=== PATIENT | male | born 1960 | race Caucasian/White ===

== ENCOUNTER 2016-07-08 16:41 | Emergency (ER) | payer OTHER ==
--- NOTE | 2016-07-08 17:08 | EDM.PDOC ---
ED HISTORY OF PRESENT ILLNESS - General Chief Complaint: Respiratory Problem Stated Complaint: SOB, FEVER, IMMUNO COMPROMISED, HEADACHE Time Seen by Provider: 07/08/16 17:08 - History of Present Illness INITIAL COMMENTS - FREE TEXT/NARRATIVE: 56-year-old male presents emergency room with a worsening cough. This cough has been going on for 3 or 4 days at times the cough is productive. At times he hears some wheezing. 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 He's had some associated fevers with this cough. Not a lot of other symptoms. Patient denies any chest pain or chest pressure. - Related Data Allergies/ADRs: Allergies Allergy/AdvReac Type Severity Reaction Status Date / Time No Known Allergies Allergy Verified 07/08/16 16:57 Home Meds: Home Meds Aspirin [[place] Aspirin] 81 mg PO DAILY 05/11/14 [History] Fluticasone Propionate [Flovent] 4 puff IH BID 05/11/14 [History] Pantoprazole [ProTONIX] 40 mg PO DAILY 05/11/14 [History] Sulfamethoxazole/Trimethoprim [Bactrim Ds Tablet] 1 tab PO BID 06/08/14 [History ] Ubidecarenone/Vitamin E Mixed [Coenzyme Q10 200 MG] 1 each PO DAILY #30 capsule 08/03/14 [Rx] FLUoxetine [PROzac] 40 mg PO DAILY 05/01/15 [History] Losartan [Cozaar] 25 mg PO DAILY 07/06/15 [History] Metoprolol Succinate [Toprol XL] 12.5 mg PO DAILY 07/06/15 [History] Albuterol Sulfate 2.5 mg IH QID #30 ml 01/07/16 [Rx] Benzonatate 200 mg PO Q8H PRN 07/08/16 [History] Doxycycline Hyclate 100 mg PO Q12H #19 tablet. 07/08/16 [Rx] Folic Acid/Multivit-Minerals [Men's Multivitamin Gummies] 2 tab PO DAILY [History] Nitroglycerin [Nitrostat] 0.4 mg PO Q5M PRN 07/08/16 [History] Rosuvastatin Calcium [Crestor] 40 mg PO DAILY 07/08/16 [History] Past Medical History HEENT History: Reports: Other (see below) Other HEENT History: Wears glasses for reading. Cardiovascular History: Reports: CAD, High cholesterol, [place] Respiratory History: Reports: Other (see below) Other Respiratory History: Wegeners syndrome Gastrointestinal History: Reports: GERD Psychiatric History: Reports: Anxiety Immunologic History: Reports: Other (see below) Other Immunologic History: Yancy's disease - Infectious Disease History Infectious Disease History: Reports: Chicken pox, Influenza, Mumps - Past Surgical History Cardiovascular Surgical History: Reports: Coronary artery stent Other Cardiovascular Surgeries/Procedures: 2 stents Respiratory Surgical History: Reports: None GI Surgical History: Reports: None Musculoskeletal Surgical History: Reports: Other (see below) Other Musculoskeletal Surgeries/Procedures:: L knee arhtroscopy, ACL replaced with cadaver ligament Social & Family History - Family History Family Medical History: Noncontributory - Tobacco Use Smoking Status *Q: Never Smoker Second Hand Smoke Exposure: No - Caffeine Use Caffeine Use: Reports: Coffee, Soda - Alcohol Use Days Per Week of Alcohol Use: 0 - Recreational Drug Use Recreational Drug Use: No Drug Use in Last 12 Months: No ED ROS GENERAL - Review of Systems Review Of Systems: See Below Constitutional: Reports: fever HEENT: Reports: No symptoms Respiratory: Reports: Wheezing, Cough, Sputum. Denies: Shortness of Breath Cardiovascular: Reports: No symptoms. Denies: Chest pain, Dyspnea on exertion GI/Abdominal: Reports: No symptoms Neurological: Reports: No Symptoms ED EXAM, GENERAL - Physical Exam Exam: See Below Exam Limited By: No limitations General Appearance: alert, no apparent distress Eye Exam: bilateral eye: normal inspection Ears: normal external exam, normal canal, hearing grossly normal. No: normal TMs (Patient has scarring extensively on his tympanic membranes especially the right ear tubes noted bilaterally) Nose: normal inspection, normal mucosa, no blood Throat/Mouth: Normal inspection, Normal lips, Normal teeth, Normal gums, Normal oropharynx, Normal voice, No airway compromise Head: atraumatic, normocephalic Neck: normal inspection, supple, non-tender, full range of motion. No: lymphadenopathy (L), lymphadenopathy (R) Respiratory/Chest: no respiratory distress, lungs clear, normal breath sounds, other (Second exam he had a few coarse breath sounds) Cardiovascular: regular rate, rhythm, no edema, no murmur Course - Vital Signs Last Recorded V/S: Last Vital Signs Temp 37.2 C 07/08/16 16:58 Pulse 78 07/08/16 16:58 Resp 20 07/08/16 16:58 BP 157/78 H 07/08/16 16:58 Pulse Ox 95 07/08/16 16:58 - Orders/Labs/Meds Orders: Active Orders 24 hr Category Date Time Status Chest 2V [CR] Stat Exams 07/08/16 17:28 Taken CBC WITH MANUAL DIFF [HEME] Stat Lab 07/08/16 17:10 Results COMPREHENSIVE METABOLIC PN,CMP [CHEM] Stat Lab 07/08/16 17:10 Received Labs: Laboratory Tests 07/08/16 Range/Units 17:10 WBC 5.31 (4.23-9.07) K/mm3 RBC 5.02 (4.63-6.08) M/mm3 Hgb 14.3 (13.7-17.5) gm/L Hct 43.4 (40.1-51.0) % MCV 86.5 (79.0-92.2) fl MCH 28.5 (25.7-32.2) pg MCHC 32.9 (32.2-35.5) g/dl RDW Std Deviation 42.7 (35.1-43.9) fL Plt Count 234 (163-337) K/mm3 MPV 9.5 (9.4-12.3) fl - Re-Assessments/Exams Free Text/Narrative Re-Assessment/Exam: 07/08/16 18:38 Chest x-ray is negative for acute processes he has mild scarring in most likely related to his Yancy's granulomatosis. Laboratory evaluation noncontributory His white count is almost 6069% segs 2% bands creatinine is 1.4 BUN 18 he has some known renal involvement from his Yancy's. Patient be treated with doxycycline 100 mg twice daily and be started on albuterol MDI 2 puffs every 4 hours while awake. Departure - Departure Time of Disposition: 18:40 Disposition: Home, Self-Care 01 Clinical Impression: Bronchitis Prescriptions: Doxycycline Hyclate 100 mg PO Q12H #19 tablet.dr Forms: ED Department Discharge Additional Instructions: Return to emergency room if any questions or problems. Followup in the clinic at the end of this next week if needed. He been started on doxycycline 100 mg twice daily take this for 10 days. While taking this take your multivitamin mid day in between the 2 doses at a minimum 2 hours away from the doxycycline preferably 4+ hours away from the doxycycline. discontinue Bactrim while taking the doxycycline. You have been started on albuterol inhaler. Use this 2 puffs every 4 hours until feeling better after feeling better continue to use 2 puffs 3 times a day for an additional week. - My Orders Last 24 Hours: My Active Orders 07/08/16 17:10 CBC WITH MANUAL DIFF [HEME] Stat COMPREHENSIVE METABOLIC PN,CMP [CHEM] Stat 07/08/16 17:28 Chest 2V [CR] Stat - Assessment/Plan Last 24 Hours: My Active Orders 07/08/16 17:10 CBC WITH MANUAL DIFF [HEME] Stat COMPREHENSIVE METABOLIC PN,CMP [CHEM] Stat 07/08/16 17:28 Chest 2V [CR] Stat
[2016-07-08] MEDS ORDERED: Doxycycline 100 MG Cap PO ONE (18:24)
[2016-07-08] MEDS ORDERED: Albuterol 6.7 GM Inhaler INH ONE (18:31)
[2016-07-08 19:12] VITALS: BP 149/86
--- NOTE | 2016-07-09 08:36 | CR ---
Chest: Two views of the chest were obtained. Comparison: Previous chest x-ray of 01/07/16. Heart size and mediastinum are normal. Lungs are clear. Degenerative spurring is noted within the spine. Impression: 1. Nothing acute is identified on two-view chest x-ray. Diagnostic code #2
== END 2016-07-08 19:00 | disposition home or self-care (01) ==
LOC: JD.ED 16:41
DX: J40 Bronchitis, not specified as acute or chronic (principal); I25.10 Atherosclerotic heart disease of native coronary artery without angina pectoris; E78.00 Pure hypercholesterolemia, unspecified; I25.2 Old myocardial infarction; K21.9 Gastro-esophageal reflux disease without esophagitis; F41.9 Anxiety disorder, unspecified; Z79.899 Other long term (current) drug therapy; Z79.82 Long term (current) use of aspirin
CPT/HCPCS: 36415; 71020; 80053; 85025; 94664; 99285; A9270; 99283

== ENCOUNTER 2017-01-08 07:18 | Emergency (ER) | payer OTHER ==
[2017-01-08 07:28] VITALS: BP 148/71
[2017-01-08] MEDS ORDERED: Amoxicillin/Clavulanate K 875-125 MG Tab PO ONE (07:51)
[2017-01-08] MEDS ORDERED: Diphtheria,Pertussis(Acell),Tetanus Vaccine 0.5 ML SDV IM ONE (07:51)
--- NOTE | 2017-01-08 08:05 | EDM.PDOC ---
ED HPI GENERAL MEDICAL PROBLEM - General Chief Complaint: Bite:Animal, Insect Stated Complaint: CAT BITE HAND SWELLING Time Seen by Provider: 01/08/17 07:27 Source of Information: Reports: Patient, Family (), RN Notes Reviewed History Limitations: Reports: No Limitations - History of Present Illness INITIAL COMMENTS - FREE TEXT/NARRATIVE: The patient states that he was bitten on his left hand around 22:00 last night, by a cat that he and his just adopted yesterday. This morning, he has developed some swelling, mild erythema, and pain to the area. The patient does not recall when his last tetanus vaccination was. The patient is on Rituxan and Bactrim for Yancy's granulomatosis. The patient's PCP is Shanna Borrego. Left Hand Pain Score (Numeric/FACES): 4 - Related Data Allergies Allergy/AdvReac Type Severity Reaction Status Date / Time No Known Allergies Allergy Verified 01/08/17 07:27 Home Meds: Home Meds Aspirin [[place] Aspirin] 81 mg PO DAILY 05/11/14 [History] Fluticasone Propionate [Flovent] 4 puff IH BID 05/11/14 [History] Pantoprazole [ProTONIX] 40 mg PO DAILY 05/11/14 [History] Sulfamethoxazole/Trimethoprim [Bactrim Ds Tablet] 1 tab PO BID 06/08/14 [History ] Ubidecarenone/Vitamin E Mixed [Coenzyme Q10 200 MG] 1 each PO DAILY #30 capsule 08/03/14 [Rx] FLUoxetine [PROzac] 40 mg PO DAILY 05/01/15 [History] Losartan [Cozaar] 25 mg PO DAILY 07/06/15 [History] Metoprolol Succinate [Toprol XL] 12.5 mg PO DAILY 07/06/15 [History] Benzonatate 200 mg PO Q8H PRN 07/08/16 [History] Nitroglycerin [Nitrostat] 0.4 mg PO Q5M PRN 07/08/16 [History] Rosuvastatin Calcium [Crestor] 40 mg PO DAILY 07/08/16 [History] Albuterol Sulfate 2.5 mg IH QID PRN 11/09/16 [History] Amoxicillin/Potassium Clav [Augmentin 875-125 Tablet] 1 tab PO Q12H #20 tablet 01/08/17 [Rx] Insulin Aspart [Novolog Flexpen] 1 - 7 units SQ TIDAC 01/08/17 [History] Insulin Glarg,Human.Rec.Analog [LantUS Solostar] 12 units SQ DAILY 01/08/17 [ History] metFORMIN [Glucophage XR] 500 mg PO DAILY 01/08/17 [History] riTUXimab [Rituxan] 1,000 mg IV ASDIRECTED 01/08/17 [History] Past Medical History HEENT History: Reports: Hard of Hearing (wears hearing aids), Impaired Vision ( weras glasses) Cardiovascular History: Reports: CAD, High Cholesterol, Hypertension, [place] Respiratory History: Reports: Other (See Below) (Subglottic stenosis) Gastrointestinal History: Reports: GERD 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) Psychiatric History: Reports: Anxiety, Depression Endocrine/Metabolic History: Reports: Diabetes, Type II Immunologic History: Reports: Other (See Below) (Yancy's granulomatosis) - Infectious Disease History Infectious Disease History: Reports: Chicken Pox, Influenza, Mumps - Past Surgical History HEENT Surgical History: Reports: Oral Surgery ([place] teeth extraction) Cardiovascular Surgical History: Reports: Coronary Artery Stent (x 2) Respiratory Surgical History: Reports: Lung Biopsies, Other (See Below) ( Bronchoscopy x 5) GI Surgical History: Reports: Colonoscopy Musculoskeletal Surgical History: Reports: Other (See Below) (Right knee open ACL repair) Social & Family History - Family History Family Medical History: Noncontributory - Tobacco Use Smoking Status *Q: Never Smoker Second Hand Smoke Exposure: No - Caffeine Use Caffeine Use: Reports: None - Alcohol Use Alcohol Use History: Yes Days Per Week of Alcohol Use: 0 Alcohol Use Frequency: Socially - Recreational Drug Use Recreational Drug Use: No - Living Situation & Occupation Living situation: Reports: , with Spouse 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) ED ROS GENERAL - Review of Systems Review Of Systems: See Below Constitutional: Reports: No Symptoms HEENT: Reports: No Symptoms Respiratory: Reports: No Symptoms Cardiovascular: Reports: No Symptoms Endocrine: Reports: No Symptoms GI/Abdominal: Reports: No Symptoms : Reports: No Symptoms Musculoskeletal: Reports: No Symptoms Skin: Reports: No Symptoms Neurological: Reports: No Symptoms Psychiatric: Reports: No Symptoms Hematologic/Lymphatic: Reports: No Symptoms Immunologic: Reports: No Symptoms ED EXAM, ANIMAL BITE - Physical Exam Exam: See Below Exam Limited By: No Limitations General Appearance: Alert, WD/WN, No Apparent Distress Eye Exam: Extremities: Normal Range of Motion, Normal Capillary Refill, Other (2 subtle puncture wounds on the dorsal aspect of the left thenar eminence, with mild associated swelling and slight erythema. Mild tenderness to palpation of the area. No proximal swelling. Neurovascular status of the left upper extremity is intact.) Skin Exam: Normal Color, Warm/Dry Course - Vital Signs Last Recorded V/S: Last Vital Signs Temp 36.8 C 01/08/17 07:24 Pulse 79 01/08/17 07:24 Resp 16 01/08/17 07:24 BP 148/71 H 01/08/17 07:24 Pulse Ox 97 01/08/17 07:24 - Orders/Labs/Meds Orders: Active Orders 24 hr Category Date Time Status Vaccines to be Administered [RC] PER UNIT ROUTINE Care 01/08/17 07:51 Active Meds: Medications Discontinued Medications Generic Name Dose Route Start Last Admin Trade Name Vanessa PRN Reason Stop Dose Admin Amoxicillin/Clavulanate Potassium 1 tab 01/08/17 07:51 01/08/17 08:04 Augmentin 875 Mg/125 Mg PO 01/08/17 07:52 1 tab ONETIME ONE Administration Diphtheria/Tetanus/Acell Pertussis 0.5 ml 01/08/17 07:51 01/08/17 08:04 Adacel IM 01/08/17 07:52 0.5 ml .ONCE ONE Administration - Re-Assessments/Exams Free Text/Narrative Re-Assessment/Exam: 01/08/17 07:59 The patient has mild swelling and erythema to the posterior aspect of his left thenar eminence following a cat bite late last night. The patient does not know his tetanus vaccination, therefore I have ordered a tetanus vaccine, however, as he is on Rituxan, I informed him that the tetanus vaccination may be ineffective. Happily, tetanus is extremely unlikely with a cat bite. While the patient is on Bactrim, it does not cover anaerobes. I have therefore started the patient on oral Augmentin, and will e-prescribe for a 10 day course. Departure - Departure Time of Disposition: 08:02 Disposition: Home, Self-Care 01 Condition: Good Clinical Impression: Cat bite of left hand - Discharge Information Prescriptions: Amoxicillin/Potassium Clav [Augmentin 875-125 Tablet] 1 tab PO Q12H #20 tablet Instructions: Animal Bite, [id number] Referrals: Shanna Borrego, [employer] [Primary Care Provider] - Forms: ED Department Discharge Additional Instructions: You were seen in the emergency room after being bitten on your left hand by a cat last night. You received a tetanus vaccination in the emergency room. You have been started on the antibiotic Augmentin. Take one tablet every 12 hours, as prescribed. Follow-up with your PCP, Shanna Borrego, as needed. If any other problems, please do not hesitate to return to the ER. - My Orders Last 24 Hours: My Active Orders 01/08/17 07:51 Vaccines to be Administered [RC] PER UNIT ROUTINE - Assessment/Plan Last 24 Hours: My Active Orders 01/08/17 07:51 Vaccines to be Administered [RC] PER UNIT ROUTINE
== END 2017-01-08 08:16 | disposition home or self-care (01) ==
LOC: JD.ED 07:18
DX: S61.452A Open bite of left hand, initial encounter (principal); I10 Essential (primary) hypertension; E78.00 Pure hypercholesterolemia, unspecified; E11.9 Type 2 diabetes mellitus without complications; Z79.4 Long term (current) use of insulin; W55.01XA Bitten by cat, initial encounter; Z79.899 Other long term (current) drug therapy; Z79.82 Long term (current) use of aspirin; Z23 Encounter for immunization
CPT/HCPCS: 90715; 99283; A9270

== ENCOUNTER 2017-03-06 23:29 | Emergency (ER) | payer OTHER ==
--- NOTE | 2017-03-07 00:10 | EDM.PDOC ---
ED HPI GENERAL MEDICAL PROBLEM - General Chief Complaint: Fever Stated Complaint: COUGH FEVER Time Seen by Provider: 03/07/17 00:05 Source of Information: Reports: Patient History Limitations: Reports: No Limitations - History of Present Illness INITIAL COMMENTS - FREE TEXT/NARRATIVE: 56-year-old male presents to the ED for evaluation of paroxysmal productive cough for the better part of 3 days which appears to be gradually worsening. Developed a fever of 99.4 tonight. 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 So far it is controlled his disease process quite well since he's been using this medication since 2004. He does have a productive cough with yellowish thick sputum. Minimal nasal congestion. No severe chills no severe headache. Patient cannot receive a flu shot due to his immunocompromise state. Prone to bronchitis and pneumonia. Appetite remains quite good. Onset: Gradual Onset Date: 03/04/17 Duration: Day(s): Location: Reports: Chest (Productive cough with mild shortness of breath.) Quality: Reports: Other Severity: Moderate (Productive cough with fever) Improves with: Reports: None Worsens with: Reports: Other Context: Denies: Activity (Lying down seems to promote increased coughing.), Exercise, Lifting, Sick Contact, Trauma, Other Associated Symptoms: Reports: Chest Pain, Cough, cough w sputum, Fever/Chills, Shortness of Breath. 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: Acetaminophen Middle Chest Pain Score (Numeric/FACES): 5 - Related Data Allergies Allergy/AdvReac Type Severity Reaction Status Date / Time No Known Allergies Allergy Verified 03/06/17 23:54 Home Meds: Home Meds Aspirin [[place] Aspirin] 81 mg PO DAILY 05/11/14 [History] Fluticasone Propionate [Flovent] 4 puff IH BID 05/11/14 [History] Pantoprazole [ProTONIX Granules] 40 mg PO DAILY 05/11/14 [History] Sulfamethoxazole/Trimethoprim [Bactrim Ds Tablet] 1 tab PO BID 06/08/14 [History ] Ubidecarenone/Vitamin E Mixed [Coenzyme Q10 200 MG] 1 each PO DAILY #30 capsule 08/03/14 [Rx] FLUoxetine [PROzac] 40 mg PO DAILY 05/01/15 [History] Losartan [Cozaar] 25 mg PO DAILY 07/06/15 [History] Metoprolol Succinate [Toprol XL] 12.5 mg PO DAILY 07/06/15 [History] Benzonatate 200 mg PO Q8H PRN 07/08/16 [History] Nitroglycerin [Nitrostat] 0.4 mg PO Q5M PRN 07/08/16 [History] Rosuvastatin Calcium [Crestor] 40 mg PO DAILY 07/08/16 [History] Albuterol Sulfate 2.5 mg IH QID PRN 11/09/16 [History] Amoxicillin/Potassium Clav [Augmentin 875-125 Tablet] 1 tab PO Q12H #20 tablet 01/08/17 [Rx] Insulin Aspart [Novolog Flexpen] 1 - 7 units SQ TIDAC 01/08/17 [History] Insulin Glarg,Human.Rec.Analog [LantUS Solostar] 12 units SQ DAILY 01/08/17 [ History] metFORMIN [Glucophage XR] 500 mg PO DAILY 01/08/17 [History] riTUXimab [Rituxan] 1,000 mg IV ASDIRECTED 01/08/17 [History] Indomethacin. 1 tab PO DAILY 03/06/17 [History] Doxycycline [Vibramycin] 100 mg PO Q12HR #20 cap 03/07/17 [Rx] Hydrocodone/Chlorphen P-Stirex [Tussionex Pennkinetic Susp] 5 ml PO Q12H PRN # 60 ml 03/07/17 [Rx] Past Medical History HEENT History: Reports: Hard of Hearing (wears hearing aids), Impaired Vision ( weras glasses) Other HEENT History: Wears glasses for reading. 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 Psychiatric History: Reports: Anxiety, Depression Endocrine/Metabolic History: Reports: Diabetes, Type II Immunologic History: Reports: Other (See Below) (Yancy's granulomatosis) Other Immunologic History: Yancy's disease - Infectious Disease History Infectious Disease History: Reports: Chicken Pox, Influenza, Mumps - Past Surgical History HEENT Surgical History: Reports: Oral Surgery ([place] teeth extraction) Cardiovascular Surgical History: Reports: Coronary Artery Stent (x 2) Respiratory Surgical History: Reports: Lung Biopsies, Other (See Below) ( Bronchoscopy x 5) GI Surgical History: Reports: Colonoscopy Musculoskeletal Surgical History: Reports: Other (See Below) (Right knee open ACL repair) Social & Family History - Family History Family Medical History: Noncontributory - Tobacco Use Smoking Status *Q: Never Smoker Second Hand Smoke Exposure: No - Caffeine Use Caffeine Use: Reports: None - Alcohol Use Days Per Week of Alcohol Use: 0 - Recreational Drug Use Recreational Drug Use: No Drug Use in Last 12 Months: No - Living Situation & Occupation Living situation: Reports: , with Spouse 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 Denies: Chills, Night Sweats , Diaphoresis, Decreased Appetite, Weight Loss (Mild), Weight Gain HEENT: Reports: Rhinitis Respiratory: Reports: Shortness of Breath, Wheezing (Prep slightly more short of breath than normal), Cough, Sputum. Denies: Pleuritic Chest Pain ( on the wheezing intermittently), Hemoptysis (Yellowish thick sputum), Other Cardiovascular: Reports: No Symptoms Endocrine: Reports: No Symptoms GI/Abdominal: Reports: No Symptoms : Reports: No Symptoms Musculoskeletal: Reports: No Symptoms Skin: Reports: No Symptoms Neurological: Reports: No Symptoms Psychiatric: Reports: No Symptoms Hematologic/Lymphatic: Reports: No Symptoms Immunologic: Reports: No Symptoms ED EXAM, GENERAL - Physical Exam Exam: See Below Exam Limited By: No Limitations General Appearance: Alert, WD/WN, No Apparent Distress, Other Eye Exam: Bilateral Eye: Normal Inspection Ears: Normal TMs Nose: Other (Thickened mucosa particularly of the superior turbinates and the medial turbinates bilaterally without any signs of infection) Throat/Mouth: Normal Inspection, Normal Lips, Normal Teeth, Normal Oropharynx, Other Head: Atraumatic, Normocephalic Neck: Normal Inspection, Supple, Non-Tender, Full Range of Motion. No: Lymphadenopathy (L), Lymphadenopathy (R) Respiratory/Chest: No Respiratory Distress, Decreased Breath Sounds (Mild to both bases.), Rhonchi (Scattered rhonchi left upper lobe posteriorly), Wheezing (Bilateral wheezes from the upper lung coleman posteriorly.). No: Rales Cardiovascular: Normal Peripheral Pulses, Regular Rate, Rhythm, No Edema, No Gallop, No Murmur, No Rub GI/Abdominal: Normal Bowel Sounds, Soft, Non-Tender, No Organomegaly Extremities: Normal Inspection, Normal Range of Motion, Non-Tender, No Pedal Edema Neurological: Oriented, CN II-XII Intact, Normal Cognition, Normal Gait Psychiatric: Normal Affect Skin Exam: Warm, Dry, Intact, Normal Color, No Rash Course - Vital Signs Last Recorded V/S: Last Vital Signs Temp 36.7 C 03/06/17 23:47 Pulse 78 03/06/17 23:47 Resp 16 03/06/17 23:47 BP Pulse Ox 94 L 03/06/17 23:47 - Orders/Labs/Meds Orders: Active Orders 24 hr Category Date Time Status Chest 2V [CR] Stat Exams 03/07/17 00:01 Taken Meds: Medications Discontinued Medications Generic Name Dose Route Start Last Admin Trade Name Freq PRN Reason Stop Dose Admin Doxycycline Hyclate 200 mg 03/07/17 00:41 Vibramycin PO 03/07/17 00:42 ONETIME ONE Promethazine HCl/Codeine 15 ml 03/07/17 00:40 Phenergan With Codeine PO 03/07/17 00:41 ONETIME ONE - Radiology Interpretation Free Text/Narrative:: 56-year-old male presents the ED for evaluation of productive cough that is bringing up yellowish thick sputum. Develop an of fever tonight. Paroxysmal cough when he lays down. Patient is immunocompromised due to having Yancy's granulomatosis is unable to receive a flu shot. Running a low-grade fever at present 99.4. On to bronchitis and pneumonia due to his disease process. Plan influenza screen will be done although I think this is unlikely since he has a good appetite is not all that febrile. Two-view chest x-ray will be obtained to rule out pneumonia. - Re-Assessments/Exams Free Text/Narrative Re-Assessment/Exam: 03/07/17 00:24 two-view chest x-ray is within normal limits showing no signs of pneumonia. 03/07/17 00:45 influenza screen is negative. Patient will be treated with doxycycline 100 mg twice daily for 10 days. First dose of 200 mg was provided through the ED tonight. Given initial dose of cough syrup Phenergan With Codeine 15 mils by mouth now for cough relief overnight. Prescription written for Tussionex 5 mils every 12 hours. For cough relief over the next few days. Follow-up if not markedly improved in 3 days time Departure - Departure Time of Disposition: 00:41 Disposition: Home, Self-Care 01 Condition: Fair Clinical Impression: Bronchitis - Discharge Information Prescriptions: Doxycycline [Vibramycin] 100 mg PO Q12HR #20 cap Hydrocodone/Chlorphen P-Stirex [Tussionex Pennkinetic Susp] 5 ml PO Q12H PRN # 60 ml PRN Reason: Cough relief Referrals: Shanna Borrego, WASHROOM ATTENDANT [Primary Care Provider] - Forms: ED Department Discharge Additional Instructions: Evaluation in the emergency room today in regards to increasing upper respiratory tract symptoms primarily by way of productive cough and development of fever over the last 3 days. Exam reveals diffuse wheezing in the upper lung coleman in the back. Chest x-ray was negative for any pneumonia. Due to her immunocompromise state and development of bronchitis with fever decision made to treat with antibiotics. Use doxycycline 100 mg twice daily for the next 10 days to clear up infection. You're given Tylenol with Codeine elixir in the ED for cough relief overnight. It takes a good hour to work. Similarly prescription for Tussionex was written this takes a good hour to work as well and is taken 5 mils every 12 hours as needed for cough relief. Doxycycline should be continued twice daily for 10 days to clear up infection completely. Influenza screen was negative. Continue Tylenol or Advil as needed for fever relief. - My Orders Last 24 Hours: My Active Orders 03/07/17 00:01 Chest 2V [CR] Stat - Assessment/Plan Last 24 Hours: My Active Orders 03/07/17 00:01 Chest 2V [CR] Stat
[2017-03-07] MEDS ORDERED: Codeine/Promethazine 10-6.25 MG/5 ML Syrup 5 ML UD Cup PO ONE (00:40)
[2017-03-07] MEDS ORDERED: Doxycycline 100 MG Cap PO ONE (00:41)
--- NOTE | 2017-03-07 12:50 | CR ---
Chest: Two views of the chest were obtained. Comparison: Prior chest x-ray of 07/08/16. Heart size and mediastinum are within normal limits. Lungs are clear. Mild degenerative change is seen throughout the spine. Impression: 1. Nothing acute is identified on two-view chest x-ray. Diagnostic code #2 MTDD
== END 2017-03-07 00:55 | disposition home or self-care (01) ==
LOC: JD.ED 23:29
DX: J40 Bronchitis, not specified as acute or chronic (principal); I10 Essential (primary) hypertension; I25.10 Atherosclerotic heart disease of native coronary artery without angina pectoris; E78.00 Pure hypercholesterolemia, unspecified; E11.9 Type 2 diabetes mellitus without complications; F32.9 Major depressive disorder, single episode, unspecified; Z95.5 Presence of coronary angioplasty implant and graft; Z79.82 Long term (current) use of aspirin; Z79.4 Long term (current) use of insulin; Z79.899 Other long term (current) drug therapy
CPT/HCPCS: 71020; 87804; 99284; A9270; 99283

== ENCOUNTER 2017-03-17 17:14 | Emergency (ER) | payer OTHER ==
[2017-03-17 17:23] VITALS: BP 122/81
[2017-03-17] MEDS ORDERED: Sodium Chloride 0.9% 10 ML Syringe FLUSH PRN (18:16)
[2017-03-17] MEDS ORDERED: Diatrizoate Meglumine/Diatrizoate Sodium 37% 120 ML Bottle PO ONE (19:42)
[2017-03-17] MEDS ORDERED: Iopamidol 612 MG/ML 150 ML Bottle IVPUSH ONE (19:42)
[2017-03-17] MEDS ORDERED: Sodium Chloride 0.9% 10 ML Syringe FLUSH ONE (19:42)
--- NOTE | 2017-03-17 19:51 | EDM.PDOC ---
ED HPI GENERAL MEDICAL PROBLEM - General Chief Complaint: Chest Pain Stated Complaint: ABDOMINAL PAIN,NAUSEA,EXCESSIVE SWEATING Time Seen by Provider: 03/17/17 18:00 Source of Information: Reports: Patient History Limitations: Reports: No Limitations - History of Present Illness INITIAL COMMENTS - FREE TEXT/NARRATIVE: 56-year-old male presents for evaluation and treatment of abdominal pain. Patient reports the abdominal pain started 3 days ago. He states his generalized and is not localized to any one area. He describes as a crampy pain that waxes and wanes. He reports associated symptoms of diaphoresis and nausea. No fevers, diarrhea or vomiting. He is report that he is more anxious than normal. States that he had similar symptoms in April 2014 he was diagnosed with an [place]. He was sent to [facility] and had 2 stents placed. Patient denies any shortness of breath, however, his feels that he is breathing heavier than normal. Patient denies any chest pain, arm pain or neck pain. 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 Holley. Location: Reports: Abdomen Abdominal Pain Score (Numeric/FACES): 3 - Related Data Allergies Allergy/AdvReac Type Severity Reaction Status Date / Time No Known Allergies Allergy Verified 03/06/17 23:54 Home Meds: Home Meds Aspirin [[place] Aspirin] 81 mg PO DAILY 05/11/14 [History] Fluticasone Propionate [Flovent] 4 puff IH BID 05/11/14 [History] Pantoprazole [ProTONIX Granules] 40 mg PO DAILY 05/11/14 [History] Sulfamethoxazole/Trimethoprim [Bactrim Ds Tablet] 1 tab PO BID 06/08/14 [History ] Ubidecarenone/Vitamin E Mixed [Coenzyme Q10 200 MG] 1 each PO DAILY #30 capsule 08/03/14 [Rx] FLUoxetine [PROzac] 60 mg PO DAILY 05/01/15 [History] Losartan [Cozaar] 25 mg PO DAILY 07/06/15 [History] Metoprolol Succinate [Toprol XL] 12.5 mg PO DAILY 07/06/15 [History] Nitroglycerin [Nitrostat] 0.4 mg PO Q5M PRN 07/08/16 [History] Rosuvastatin Calcium [Crestor] 40 mg PO DAILY 07/08/16 [History] Albuterol Sulfate 2.5 mg IH QID PRN 11/09/16 [History] Insulin Glarg,Human.Rec.Analog [LantUS Solostar] 16 units SQ DAILY 01/08/17 [ History] metFORMIN [Glucophage XR] 500 mg PO DAILY 01/08/17 [History] riTUXimab [Rituxan] 1,000 mg IV ASDIRECTED 01/08/17 [History] Indomethacin. 1 tab PO DAILY PRN 03/06/17 [History] Ondansetron [Zofran ODT] 4 mg PO Q6H PRN #20 tab.dis 03/17/17 [Rx] Pseudoephedrine HCl [Sudafed 12 Hour] 1 tab PO BEDTIME 03/17/17 [History] Past Medical History HEENT History: Reports: Hard of Hearing, Impaired Vision Other HEENT History: Wears glasses for reading. Cardiovascular History: Reports: CAD, High Cholesterol, Hypertension, [place] Respiratory History: Reports: Other (See Below) Other Respiratory History: GPA Gastrointestinal History: Reports: GERD Neurological History: Reports: CVA Other Neuro History: occular stoke Psychiatric History: Reports: Anxiety, Depression Endocrine/Metabolic History: Reports: Diabetes, Type II Immunologic History: Reports: Other (See Below) Other Immunologic History: Yancy's disease - Infectious Disease History Infectious Disease History: Reports: Chicken Pox, Influenza, Mumps - Past Surgical History HEENT Surgical History: Reports: Oral Surgery Cardiovascular Surgical History: Reports: Coronary Artery Stent Respiratory Surgical History: Reports: Lung Biopsies, Other (See Below) GI Surgical History: Reports: Colonoscopy Social & Family History - Family History Family Medical History: Noncontributory - Tobacco Use Smoking Status *Q: Never Smoker Second Hand Smoke Exposure: No - Caffeine Use Caffeine Use: Reports: Coffee - Alcohol Use Days Per Week of Alcohol Use: 0 - Recreational Drug Use Recreational Drug Use: No Drug Use in Last 12 Months: No - Living Situation & Occupation Living situation: Reports: , with Spouse 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 Denies: Diarrhea, Vomiting Musculoskeletal: Denies: Neck Pain, Arm Pain Psychiatric: Reports: Anxiety ED EXAM, GENERAL - Physical Exam Exam: See Below Exam Limited By: No Limitations General Appearance: Alert, WD/WN, No Apparent Distress, Anxious, Obese Ears: Normal External Exam Nose: Normal Inspection Throat/Mouth: Normal Inspection, Normal Lips, Normal Voice, No Airway Compromise Neck: Normal Inspection Respiratory/Chest: No Respiratory Distress, Lungs Clear, Normal Breath Sounds Cardiovascular: Normal Peripheral Pulses, Regular Rate, Rhythm, No Murmur GI/Abdominal: Normal Bowel Sounds, Soft, Non-Tender Neurological: Alert, Oriented, Normal Cognition Psychiatric: Normal Affect, Normal Mood Skin Exam: Warm, Dry, Normal Color EKG INTERPRETATION EKG Date: 03/17/17 Time: 17:20 Rhythm: NSR Rate (Beats/Min): 78 Preemption: Normal P-Wave: Present QRS: Normal ST-T: Normal QT: Normal EKG Interpretation Comments: NSR at 78 bpm. Decreased voltage limb leads. Normal Qt. N signs of ischemia. Reviewed by myself and dr. Crespo. Course - Vital Signs Last Recorded V/S: Last Vital Signs Temp 36.7 C 03/17/17 17:17 Pulse 78 03/17/17 17:17 Resp 22 H 03/17/17 17:17 BP 122/81 03/17/17 17:17 Pulse Ox 100 03/17/17 17:17 - Orders/Labs/Meds Labs: Laboratory Tests 03/17/17 03/17/17 03/17/17 Range/Units 17:26 18:15 18:28 WBC 6.20 (4.23-9.07) K/mm3 RBC 4.84 (4.63-6.08) M/mm3 Hgb 14.0 (13.7-17.5) gm/L Hct 42.7 (40.1-51.0) % MCV 88.2 (79.0-92.2) fl MCH 28.9 (25.7-32.2) pg MCHC 32.8 (32.2-35.5) g/dl RDW Std Deviation 43.7 (35.1-43.9) fL Plt Count 283 (163-337) K/mm3 MPV 9.8 (9.4-12.3) fl Neutrophils % (Manual) 59 (40-60) % Band Neutrophils % 0 (0-10) % Lymphocytes % (Manual) 29 (20-40) % Atypical Lymphs % 0 % Monocytes % (Manual) 8 (2-10) % Eosinophils % (Manual) 3 (0.8-7.0) % Basophils % (Manual) 1 (0.2-1.2) Platelet Estimate Adequate Plt Morphology Comment Normal RBC Morph Comment Normal Sodium 141 (136-145) mEq/L Potassium 4.2 (3.5-5.1) mEq/L Chloride 104 (98-107) mEq/L Carbon Dioxide 29 (21-32) mEq/L Anion Gap 12.2 (5-15) BUN 16 (7-18) mg/dL Creatinine 1.3 (0.7-1.3) mg/dL Est Cr Clr Drug Dosing 65.51 mL/min Estimated GFR (MDRD) 57 (>60) mL/min BUN/Creatinine Ratio 12.3 L (14-18) Glucose 126 H (74-106) mg/dL Calcium 9.6 (8.5-10.1) mg/dL Total Bilirubin 0.4 (0.2-1.0) mg/dL AST 27 (15-37) U/L ALT 25 (16-63) U/L Alkaline Phosphatase 73 (46-116) U/L CK-MB (CK-2) 0.9 (0-3.6) ng/ml Troponin I < 0.017 (0.00-0.056) ng/mL Total Protein 7.0 (6.4-8.2) g/dl Albumin 3.8 (3.4-5.0) g/dl Globulin 3.2 gm/dL Albumin/Globulin Ratio 1.2 (1-2) Lipase 318 (73-393) U/L Urine Color Yellow (Yellow) Urine Appearance Clear (Clear) Urine pH 6.5 (5.0-8.0) Ur Specific [place] 1.015 (1.005-1.030) Urine Protein Negative (Negative) Urine Glucose (UA) Negative (Negative) Urine Ketones Negative (Negative) Urine Occult Blood Negative (Negative) Urine Nitrite Negative (Negative) Urine Bilirubin Negative (Negative) Urine Urobilinogen 0.2 (0.2-1.0) Ur Leukocyte Esterase Negative (Negative) Urine RBC Not seen (0-5) /hpf Urine WBC Not seen (0-5) /hpf Ur Epithelial Cells Not seen (0-5) /hpf Urine Bacteria Not seen (FEW) /hpf Urine Mucus Not seen (FEW) /hpf Meds: Medications Discontinued Medications Generic Name Dose Route Start Last Admin Trade Name Vanessa PRN Reason Stop Dose Admin Diatrizoate Meglum/Diatrizoate Sod 90 ml 03/17/17 19:42 03/17/17 20:25 Gastrografin 37% PO 03/17/17 19:43 90 ml ONETIME ONE Administration Iopamidol 125 ml 03/17/17 19:42 03/17/17 20:25 Isovue-300 (61%) IVPUSH 03/17/17 19:43 125 ml ONETIME ONE Administration Sodium Chloride 10 ml 03/17/17 18:16 03/17/17 18:21 Saline Flush FLUSH 10 ml ASDIRECTED PRN Administration Keep Vein Open Sodium Chloride 10 ml 03/17/17 19:42 03/17/17 20:26 Saline Flush FLUSH 03/17/17 19:43 10 ml ONETIME ONE Administration - Radiology Interpretation Free Text/Narrative:: CT of the abdomen and pelvis with IV and oral contrast impression per vrad: No acute findings. hepatic steatosis. multiple calcified splenic granulomata. chest xray shows no acute intrathoracic process. - Re-Assessments/Exams Free Text/Narrative Re-Assessment/Exam: 03/17/17 21:00 I reviewed the labs, EKG and imaging with the patient. Unclear the exact etiology for his abdominal discomfort today. Possibly a gastroenteritis causing his symptoms. I will treat him conservatively with fluids and rest. Instructed to follow-up with his primary care provider. Discharge instructions as documented. Departure - Departure Time of Disposition: 21:08 Disposition: Home, Self-Care 01 Condition: Good Clinical Impression: Nausea, Abdominal discomfort Prescriptions: Ondansetron [Zofran ODT] 4 mg PO Q6H PRN #20 tab.dis PRN Reason: Nausea Referrals: Shanna Borrego MANAGER SOLAR [Primary Care Provider] - Forms: ED Department Discharge Additional Instructions: Zofran 1 tab sublingual every 6 hours as needed for nausea. Recommend starting probiotic. Recommend bland diet and clear liquids for the next 2 days. [place] diet recommendations include bread, rice, applesauce, toast, bananas, egg whites, crackers, etc. Follow-up with your primary care provider this week. Please return to the ER if your symptoms change or worsen.
--- NOTE | 2017-03-18 09:54 | CR ---
Chest: Frontal view of the chest was obtained. Comparison: Prior chest x-ray of 03/07/17. Heart size and mediastinum are normal. Lungs are clear. Degenerative endplate spurring is noted within the spine. Impression: 1. Nothing acute is seen on frontal chest x-ray. No significant change is seen from prior chest x-ray. Diagnostic code #2
--- NOTE | 2017-03-18 11:12 | CT ---
CT abdomen and pelvis Technique: Multiple axial sections were obtained from above the dome of the diaphragm inferiorly through the pubic symphysis. Intravenous and oral contrast has been given. Delayed images were also obtained through the bladder. Comparison: Prior noncontrast CT exam of 05/17/15. Findings: Small subpleural nodule is identified within the right lung base which is noncalcified and measures about 4 mm which is felt to be incidental. Calcified granuloma also seen within the right lung base. Mild fatty infiltration is identified within the liver. No focal parenchymal abnormality is seen within the liver. Numerous calcified granulomas are seen within the spleen. Spleen does not appear enlarged. Adrenal glands show no nodule. Pancreas is within normal limits. Kidneys show symmetric contrast enhancement without hydronephrosis or mass. Aorta shows no aneurysmal dilatation. No retroperitoneal adenopathy or mesenteric abnormalities are seen. Appendix is seen which appears normal. No pelvic mass or adenopathy is seen. Delayed images show contrast within the distal ureters and within the bladder. Bone window settings were reviewed which show scattered degenerative change throughout the spine. Impression: 1. Incidental findings as noted above. Nothing acute is identified on CT study of the abdomen and pelvis. No appreciable change is seen from prior CT exam. Diagnostic code #2 I agree with preliminary report issued by [employer] ([facility] report finalized on 03/17/17, 9:41 PM Central Time)
== END 2017-03-17 21:35 | disposition home or self-care (01) ==
LOC: JD.ED 17:14
DX: R10.84 Generalized abdominal pain (principal); R11.0 Nausea; K76.0 Fatty (change of) liver, not elsewhere classified; I10 Essential (primary) hypertension; E11.9 Type 2 diabetes mellitus without complications; E78.00 Pure hypercholesterolemia, unspecified; Z79.82 Long term (current) use of aspirin; Z79.4 Long term (current) use of insulin; Z79.84 Long term (current) use of oral hypoglycemic drugs
CPT/HCPCS: 36415; 71010; 74177; 80053; 81001; 82553; 83690; 84484; 85025; 93005; 99285; J7050; Q9963; Q9967; 93010; 99284-25

== ENCOUNTER 2017-04-07 17:58 | Observation (INO) | payer OTHER ==
[2017-04-07] MEDS ORDERED: Sodium Chloride 0.9% 10 ML Syringe FLUSH PRN (19:15)
[2017-04-07] MEDS ORDERED: Sodium Chloride 0.9% 1,000 ML IV STA (19:15)
[2017-04-07] MEDS ORDERED: Ondansetron 4 MG/2 ML SDV IVPUSH ONE (19:15)
[2017-04-07] MEDS ORDERED: HYDROmorphone 0.5 MG/0.5 ML Syringe IVPUSH ONE (19:16)
[2017-04-07] MEDS ORDERED: Sodium Chloride 0.9% 1,000 ML IV ONE (20:57)
--- NOTE | 2017-04-07 22:13 | EDM.PDOC ---
ED HPI GENERAL MEDICAL PROBLEM - General Chief Complaint: Abdominal Pain Stated Complaint: DIARRHEA,VOMITING,ABDOMINAL PAIN Time Seen by Provider: 04/07/17 18:55 Source of Information: Reports: Patient History Limitations: Reports: No Limitations - History of Present Illness INITIAL COMMENTS - FREE TEXT/NARRATIVE: The patient presents with diarrhea and upper abdominal pain. This started this morning. Last night he did not feel so good. He did not feel like eating. He has a low grade temp of 100.2. He has [place]'s disease and has been on immunosuppresents. He has some body aches. He has no cough, chest pain, shortness of breath, or dysuria. He has had watery diarrhea for the past few hours. He did not eat any bad food. He has not been around anyone that is sick. His did not feel so good the past couple of days. He did have nausea but no vomiting. Onset: Gradual Duration: Hour(s): Location: Reports: Abdomen Quality: Reports: Sharp Severity: Moderate Improves with: Reports: None Worsens with: Reports: None Associated Symptoms: Reports: Fever/Chills, Nausea/Vomiting. Denies: Cough, Headaches, Shortness of Breath Treatments YARN SALVAGER: Reports: Acetaminophen, Other (see below) Other Treatments YARN SALVAGER: zofran Abdominal Pain Score (Numeric/FACES): 5 - Related Data Allergies Allergy/AdvReac Type Severity Reaction Status Date / Time No Known Allergies Allergy Verified 03/06/17 23:54 Home Meds: Home Meds Aspirin [[place] Aspirin] 81 mg PO DAILY 05/11/14 [History] Fluticasone Propionate [Flovent] 4 puff IH BID 05/11/14 [History] Pantoprazole [ProTONIX Granules] 40 mg PO DAILY 05/11/14 [History] Sulfamethoxazole/Trimethoprim [Bactrim Ds Tablet] 1 tab PO BID 06/08/14 [History ] Ubidecarenone/Vitamin E Mixed [Coenzyme Q10 200 MG] 1 each PO DAILY #30 capsule 08/03/14 [Rx] FLUoxetine [PROzac] 60 mg PO DAILY 05/01/15 [History] Losartan [Cozaar] 25 mg PO DAILY 07/06/15 [History] Metoprolol Succinate [Toprol XL] 12.5 mg PO DAILY 07/06/15 [History] Nitroglycerin [Nitrostat] 0.4 mg PO Q5M PRN 07/08/16 [History] Rosuvastatin Calcium [Crestor] 40 mg PO DAILY 07/08/16 [History] Albuterol Sulfate 2.5 mg IH QID PRN 11/09/16 [History] Insulin Glarg,Human.Rec.Analog [LantUS Solostar] 16 units SQ DAILY 01/08/17 [ History] metFORMIN [Glucophage XR] 500 mg PO DAILY 01/08/17 [History] riTUXimab [Rituxan] 1,000 mg IV ASDIRECTED 01/08/17 [History] Indomethacin. 1 tab PO DAILY PRN 03/06/17 [History] Ondansetron [Zofran ODT] 4 mg PO Q6H PRN #20 tab.dis 03/17/17 [Rx] Pseudoephedrine HCl [Sudafed 12 Hour] 1 tab PO BEDTIME 03/17/17 [History] Past Medical History HEENT History: Reports: Hard of Hearing, Impaired Vision Other HEENT History: Wears glasses for reading. Cardiovascular History: Reports: CAD, High Cholesterol, Hypertension, CO Respiratory History: Reports: Other (See Below) Other Respiratory History: GPA Gastrointestinal History: Reports: GERD Neurological History: Reports: CVA Other Neuro History: occular stoke Psychiatric History: Reports: Anxiety, Depression Endocrine/Metabolic History: Reports: Diabetes, Type II Immunologic History: Reports: Other (See Below) Other Immunologic History: Yancy's disease - Infectious Disease History Infectious Disease History: Reports: Chicken Pox, Influenza, Mumps - Past Surgical History HEENT Surgical History: Reports: Oral Surgery Cardiovascular Surgical History: Reports: Coronary Artery Stent Respiratory Surgical History: Reports: Lung Biopsies, Other (See Below) GI Surgical History: Reports: Colonoscopy Musculoskeletal Surgical History: Reports: Other (See Below) Social & Family History - Family History Family Medical History: Noncontributory - Tobacco Use Smoking Status *Q: Never Smoker Second Hand Smoke Exposure: No - Caffeine Use Caffeine Use: Reports: None - Alcohol Use Days Per Week of Alcohol Use: 0 - Recreational Drug Use Recreational Drug Use: No Drug Use in Last 12 Months: No - Living Situation & Occupation Living situation: Reports: , with Spouse 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 Denies: Vomiting : Reports: No Symptoms Musculoskeletal: Reports: No Symptoms ED EXAM, GI/ABD - Physical Exam Exam: See Below Exam Limited By: No Limitations General Appearance: Alert, No Apparent Distress Ears: Normal External Exam Nose: Normal Inspection Head: Atraumatic, Normocephalic Neck: Normal Inspection Respiratory/Chest: No Respiratory Distress, Lungs Clear, Normal Breath Sounds Cardiovascular: Regular Rate, Rhythm, No Edema, No Murmur GI/Abdominal Exam: Soft, No Organomegaly, Tender (Mild tenderness to the upper abdomen) Back Exam: Normal Inspection Extremities: Normal Inspection Course - Vital Signs Last Recorded V/S: Last Vital Signs Temp 99.8 F 04/07/17 18:17 Pulse 101 H 04/07/17 18:17 Resp 18 04/07/17 18:17 BP 126/78 04/07/17 18:17 Pulse Ox 98 04/07/17 18:17 - Orders/Labs/Meds Orders: Active Orders 24 hr Category Date Time Status Peripheral IV Care [RC] . DIRECTED Care 04/07/17 19:15 Active Abdomen Series w Chest 1V [CR] Stat Exams 04/07/17 19:15 Taken C DIFFICILE BY PCR W/NAP1 [MOLEC] Stat Lab 04/07/17 19:17 Ordered CULTURE STOOL + SHIGATOX [RM] Stat Lab 04/07/17 19:17 Uncollected WBC, STOOL [OP] Stat Lab 04/07/17 19:17 Uncollected Sodium Chloride 0.9% [Normal Saline] 1,000 ml Med 04/07/17 23:00 Active IV ASDIRECTED Sodium Chloride 0.9% [Saline Flush] Med 04/07/17 19:15 Active 10 ml FLUSH ASDIRECTED PRN ED Antiemetic Medication Reflex [OM.PC] Stat Oth 04/07/17 19:15 Ordered Peripheral IV Insertion Adult [OM.PC] Stat Oth 04/07/17 19:15 Ordered Medication Orders Sodium Chloride (Normal Saline) 1,000 mls @ 150 mls/hr IV ASDIRECTED MICHELE Last Admin: 04/07/17 23:10 Dose: 150 mls/hr Sodium Chloride (Saline Flush) 10 ml FLUSH ASDIRECTED PRN PRN Reason: Keep Vein Open Last Admin: 04/07/17 19:45 Dose: 10 ml Labs: Laboratory Tests 04/07/17 04/07/17 04/07/17 Range/Units 19:50 19:50 22:19 WBC 8.03 (4.23-9.07) K/mm3 RBC 4.88 (4.63-6.08) M/mm3 Hgb 14.1 (13.7-17.5) gm/L Hct 42.9 (40.1-51.0) % MCV 87.9 (79.0-92.2) fl MCH 28.9 (25.7-32.2) pg MCHC 32.9 (32.2-35.5) g/dl RDW Std Deviation 42.5 (35.1-43.9) fL Plt Count 258 (163-337) K/mm3 MPV 9.3 L (9.4-12.3) fl Neut % (Auto) 88.2 H (34.0-67.9) % Lymph % (Auto) 4.1 L (21.8-53.1) % [place] % (Auto) 5.9 (5.3-12.2) % Eos % (Auto) 1.5 (0.8-7.0) Baso % (Auto) 0.1 (0.1-1.2) % Neut # (Auto) 7.08 H (1.78-5.38) K/mm3 Lymph # (Auto) 0.33 L (1.32-3.57) K/mm3 [place] # (Auto) 0.47 (0.30-0.82) K/mm3 Eos # (Auto) 0.12 (0.04-0.54) K/mm3 Baso # (Auto) 0.01 (0.01-0.08) K/mm3 Manual Slide Review Abnormal smear Sodium 139 (136-145) mEq/L Potassium 3.8 (3.5-5.1) mEq/L Chloride 104 (98-107) mEq/L Carbon Dioxide 24 (21-32) mEq/L Anion Gap 14.8 (5-15) BUN 12 (7-18) mg/dL Creatinine 1.2 (0.7-1.3) mg/dL Est Cr Clr Drug Dosing 70.97 mL/min Estimated GFR (MDRD) > 60 (>60) mL/min BUN/Creatinine Ratio 10.0 L (14-18) Glucose 118 H (74-106) mg/dL Calcium 8.5 (8.5-10.1) mg/dL Total Bilirubin 0.4 (0.2-1.0) mg/dL AST 19 (15-37) U/L ALT 23 (16-63) U/L Alkaline Phosphatase 75 (46-116) U/L Total Protein 6.5 (6.4-8.2) g/dl Albumin 3.6 (3.4-5.0) g/dl Globulin 2.9 gm/dL Albumin/Globulin Ratio 1.2 (1-2) Lipase 596 H (73-393) U/L Urine Color Yellow (Yellow) Urine Appearance Clear (Clear) Urine pH 6.0 (5.0-8.0) Ur Specific [place] 1.015 (1.005-1.030) Urine Protein Negative (Negative) Urine Glucose (UA) Negative (Negative) Urine Ketones Negative (Negative) Urine Occult Blood Negative (Negative) Urine Nitrite Negative (Negative) Urine Bilirubin Negative (Negative) Urine Urobilinogen 0.2 (0.2-1.0) Ur Leukocyte Esterase Negative (Negative) Urine RBC Not seen (0-5) /hpf Urine WBC Not seen (0-5) /hpf Ur Epithelial Cells Not seen (0-5) /hpf Urine Bacteria Not seen (FEW) /hpf Urine Mucus Not seen (FEW) /hpf Meds: Medications Generic Name Dose Route Start Last Admin Trade Name Freq PRN Reason Stop Dose Admin Sodium Chloride 1,000 mls @ 150 mls/hr 04/07/17 23:00 04/07/17 23:10 Normal Saline IV 150 mls/hr ASDIRECTED MICHELE Administration Sodium Chloride 10 ml 04/07/17 19:15 04/07/17 19:45 Saline Flush FLUSH 10 ml ASDIRECTED PRN Administration Keep Vein Open Discontinued Medications Generic Name Dose Route Start Last Admin Trade Name Freq PRN Reason Stop Dose Admin Hydromorphone HCl 0.5 mg 04/07/17 19:16 04/07/17 19:46 Dilaudid IVPUSH 04/07/17 19:17 0.5 mg ONETIME ONE Administration Sodium Chloride 1,000 mls @ 1,000 mls/hr 04/07/17 19:15 04/07/17 19:44 Normal Saline IV 04/07/17 20:14 1,000 mls/hr .BOLUS STA Administration Sodium Chloride 1,000 mls @ 1,000 mls/hr 04/07/17 20:57 04/07/17 20:59 Normal Saline IV 04/07/17 21:56 1,000 mls/hr ONETIME ONE Administration Ondansetron HCl 4 mg 04/07/17 19:15 04/07/17 19:44 Zofran IVPUSH 04/07/17 19:16 4 mg ONETIME ONE Administration - Re-Assessments/Exams Free Text/Narrative Re-Assessment/Exam: 04/07/17 22:35 I ordered an IV NS 2L bolus, zofran 4mg IV, dilaudid 0.5mg IV, labs, abdominal x -ray and UA. His x-ray shows a couple air fluid levels but no dilated bowel. This appears to be a gastroenteritis pattern. His CBC looks good. His blood sugar is 118. His lipase is elevated at 596. His UA shows no UTI. He feels better. He wants to go home but his wants him to stay. 04/07/17 23:16 I went to see the patient again and he does not feel good enough to go home at this time. I ordered more fluid. NS at 150mL/hr. I feel he needs to be admitted. I called Dr Medina and she agreed to the admission. He only met for observation at this time. Departure - Departure Time of Disposition: 23:20 Disposition: Refer to Observation Clinical Impression: Nausea Pancreatitis Qualifiers: Chronicity: acute Pancreatitis type: other Acute pancreatitis complication: no infection or necrosis Qualified Code(s): K85.80 - Other acute pancreatitis without necrosis or infection Diarrhea Qualifiers: Diarrhea type: unspecified type Qualified Code(s): R19.7 - Diarrhea, unspecified - Discharge Information Referrals: Shanna Borrego, EXPLOSIVE [employer] DISPOSAL SPECIALIST [Primary Care Provider] - Forms: ED Department Discharge - My Orders Last 24 Hours: My Active Orders 04/07/17 19:15 Peripheral IV Care [RC] . DIRECTED Abdomen Series w Chest 1V [CR] Stat Sodium Chloride 0.9% [Saline Flush] 10 ml FLUSH ASDIRECTED PRN ED Antiemetic Medication Reflex [OM.PC] Stat Peripheral IV Insertion Adult [OM.PC] Stat 04/07/17 19:17 C DIFFICILE BY PCR W/NAP1 [MOLEC] Stat CULTURE STOOL + SHIGATOX [RM] Stat WBC, STOOL [OP] Stat 04/07/17 23:00 Sodium Chloride 0.9% [Normal Saline] 1,000 ml IV ASDIRECTED - Assessment/Plan Last 24 Hours: My Active Orders 04/07/17 19:15 Peripheral IV Care [RC] . DIRECTED Abdomen Series w Chest 1V [CR] Stat Sodium Chloride 0.9% [Saline Flush] 10 ml FLUSH ASDIRECTED PRN ED Antiemetic Medication Reflex [OM.PC] Stat Peripheral IV Insertion Adult [OM.PC] Stat 04/07/17 19:17 C DIFFICILE BY PCR W/NAP1 [MOLEC] Stat CULTURE STOOL + SHIGATOX [RM] Stat WBC, STOOL [OP] Stat 04/07/17 23:00 Sodium Chloride 0.9% [Normal Saline] 1,000 ml IV ASDIRECTED
[2017-04-07] MEDS: Sodium Chloride 0.9% 1,000 ML IV SCH (23:10)
[2017-04-08] MEDS ORDERED: Acetaminophen 325 MG Tab PO PRN (03:36)
[2017-04-08] MEDS: Acetaminophen 325 MG Tab PO PRN ×2 (04:00→12:06)
[2017-04-08] MEDS ORDERED: Ondansetron 4 MG/2 ML SDV IVPUSH PRN (05:35)
[2017-04-08] MEDS: Sodium Chloride 0.9% 1,000 ML IV SCH ×2 (06:04→13:12)
--- NOTE | 2017-04-08 06:36 | PCM.HP ---
H&P History of Present Illness - General Date of Service: 04/08/17 Admit Problem/Dx: Admission Diagnosis/Problem Admission Diagnosis/Problem Pancreatitis Source of Information: Patient, Old Records, Provider, RN, RN Notes Reviewed, Significant Other History Limitations: Reports: No Limitations - History of Present Illness Initial Comments - Free Text/Narative: Brock Curtis is a 56 yo male who presented late last night with diarrhea and upper abdominal pain. He reports he did not feel good last night and actually eating. Low-grade temperature 100.2. 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 He has body aches but no cough, chest pain, shortness of breath, dysuria. It isn't watery diarrhea for the past few hours. He denies any bad food or sick contacts. His did not feels it in the past couple of days. He did have nausea but no vomiting. In the ED temp was 99.8. Pulse was 101. Respirations 18. Blood pressure 126/ 78. Pulse ox 98% labs are obtained: 30 mL 8.03. Hemoglobin 14.1. Hematocrit 42.9. He is normocytic. Put 258,000. Neutrophils are elevated at 88.2%. Sodium was good at 139. Potassium 3.8. Chloride 104. Carbon accident 24. Anion gap 14.8. BUN 12. Creatinine 1.2. EGFR is greater than 60. Glucose elevated at 118. Calcium 8.5. Bilirubin 0.4. Liver enzymes looked good with AST of 19, ALT at 23, alkaline phosphatase at 75. Protein is 6.5. Albumin 3.6. Lipase is elevated at 596. UA is negative. He is given 0.5 Dilaudid for pain, a 2 L fluid bolus, and 4 mg Zofran. Abdominal x-ray shows a few air- fluid levels but no distended bowel. C. difficile by PCR is negative, C. difficile 027NAP 1B1 is presumptive negative. His physical exam in the ED did have some mild tenderness his upper abdomen. He was also found to have bilateral otitis media. 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 He was never a smoker. He subsequently admitted to the medical floor observation status. His PCP is BLOSSOM Gracia, here at [facility]. He is a full code. Onset of Symptoms: Reports: Gradual Symptom Onset Date: 04/07/17 Duration of Symptoms: Reports: Hour(s): Location: Reports: Abdomen Improves with: Reports: None Worsens with: Reports: None Context: Denies: Sick Contact Associated Symptoms: Reports: Fever/Chills, Nausea/Vomiting. Denies: Cough, Headaches, Shortness of Breath Abdominal Pain Score (Numeric/FACES): 0 - Related Data Allergies/Adverse Reactions: Allergies Allergy/AdvReac Type Severity Reaction Status Date / Time No Known Allergies Allergy Verified 03/06/17 23:54 Home Medications: Home Meds Aspirin [Humphreys Aspirin] 81 mg PO DAILY 05/11/14 [History] Fluticasone Propionate [Flovent] 4 puff IH BID 05/11/14 [History] Pantoprazole [ProTONIX Granules] 40 mg PO DAILY 05/11/14 [History] Sulfamethoxazole/Trimethoprim [Bactrim Ds Tablet] 1 tab PO BID 06/08/14 [History ] Ubidecarenone/Vitamin E Mixed [Coenzyme Q10 200 MG] 1 each PO DAILY #30 capsule 08/03/14 [Rx] FLUoxetine [PROzac] 60 mg PO DAILY 05/01/15 [History] Losartan [Cozaar] 25 mg PO DAILY 07/06/15 [History] Metoprolol Succinate [Toprol XL] 12.5 mg PO DAILY 07/06/15 [History] Nitroglycerin [Nitrostat] 0.4 mg PO Q5M PRN 07/08/16 [History] Rosuvastatin Calcium [Crestor] 40 mg PO DAILY 07/08/16 [History] Albuterol Sulfate 2.5 mg NEB QID PRN 11/09/16 [History] Insulin Glarg,Human.Rec.Analog [LantUS Solostar] 16 units SQ DAILY 01/08/17 [ History] metFORMIN [Glucophage XR] 750 mg PO DAILY 01/08/17 [History] riTUXimab [Rituxan] 1,000 mg IV ASDIRECTED 01/08/17 [History] Indomethacin. 1 tab PO TID PRN 03/06/17 [History] Pseudoephedrine HCl [Sudafed 12 Hour] 1 tab PO BEDTIME PRN 03/17/17 [History] Acetaminophen [Tylenol Extra Strength] 1,000 mg PO Q8H PRN 04/08/17 [History] Multivitamin [[place] Multivitamin] 1 each PO DAILY 04/08/17 [History] Ondansetron [Zofran ODT] 8 mg PO Q6H PRN 04/08/17 [History] Past Medical History HEENT History: Reports: Hard of Hearing, Impaired Vision Other HEENT History: Wears glasses for reading. Cardiovascular History: Reports: CAD, High Cholesterol, Hypertension, NC Respiratory History: Reports: Other (See Below) Other Respiratory History: GPA; bronchoscopy; scarring Gastrointestinal History: Reports: GERD Neurological History: Reports: CVA Other Neuro History: occular stoke Psychiatric History: Reports: Anxiety, Depression Endocrine/Metabolic History: Reports: Diabetes, Type II, Obesity/BMI 30+ Immunologic History: Reports: Other (See Below) Other Immunologic History: Yancy's disease - Infectious Disease History Infectious Disease History: Reports: Chicken Pox, Influenza, Mumps - Past Surgical History HEENT Surgical History: Reports: Oral Surgery, Other (See Below) Other HEENT Surgeries/Procedures: subglottic stenosis laser sx removal at [place] Cardiovascular Surgical History: Reports: Coronary Artery Stent Respiratory Surgical History: Reports: Lung Biopsies GI Surgical History: Reports: Colonoscopy Musculoskeletal Surgical History: Reports: Other (See Below) Other Musculoskeletal Surgeries/Procedures:: ACL replaced Social & Family History - Family History Family Medical History: Noncontributory - Tobacco Use Smoking Status *Q: Never Smoker Second Hand Smoke Exposure: No - Caffeine Use Caffeine Use: Reports: Coffee - Alcohol Use Days Per Week of Alcohol Use: 0 - Recreational Drug Use Recreational Drug Use: No Drug Use in Last 12 Months: No - Living Situation & Occupation Living situation: Reports: , with Spouse 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 Denies: Dysphasia, Ear Pain, Eye Pain, Glasses, Headaches, Sore Throat Pulmonary: Reports: No Symptoms, Cough (chronic from sinus drainage). Denies: Shortness of Breath, Wheezing, Sputum Cardiovascular: Reports: No Symptoms. Denies: Chest Pain, Palpitations, Dyspnea on Exertion, Edema, Syncope Gastrointestinal: Reports: Diarrhea, Flatus. Denies: Abdominal Pain, Constipation, Nausea, Vomiting Genitourinary: Reports: No Symptoms. Denies: Dysuria, Frequency, Burning, Pain , Urgency Musculoskeletal: Reports: No Symptoms Skin: Reports: No Symptoms Psychiatric: Reports: No Symptoms Neurological: Reports: No Symptoms Hematologic/Lymphatic: Reports: No Symptoms Immunologic: Reports: No Symptoms Exam - Exam Exam: See Below - Vital Signs Vital Signs: Last Vital Signs Temp 101 F H 04/08/17 04:00 Pulse 79 04/08/17 02:50 Resp 16 04/08/17 02:50 BP 129/74 04/08/17 02:50 Pulse Ox 100 04/08/17 02:50 Weight: 235 lb - Exam Quality Assessment: DVT Prophylaxis General: Alert, Oriented, Cooperative. No: Mild Distress HEENT: PERRLA, Hearing Intact, Mucosa Moist & Melia, Nares Patent, Normal Nasal Septum, Posterior Pharynx Clear, Conjunctiva Clear, EOMI, EACs Clear, TMs Clear Neck: Supple, Trachea Midline. No: JVD, Thyromegaly Lungs: Clear to Auscultation, Normal Respiratory Effort Cardiovascular: Regular Rate, Regular Rhythm GI/Abdominal Exam: Normal Bowel Sounds, Soft, Non-Tender, No Organomegaly, No Distention, No Abnormal Bruit, No Mass, Pelvis Stable (Male) Exam: Deferred Rectal (Males) Exam: Deferred Back Exam: Normal Inspection, Full Range of Motion Extremities: Normal Inspection, Normal Range of Motion, Non-Tender, No Pedal Edema, Normal Capillary Refill Peripheral Pulses: 2+: Radial (L), Radial (R), Posterior Tibial (L), Posterior Tibial (R), Dorsalis Pedis (L), Dorsalis Pedis (R) Skin: Warm, Dry, Intact Neurological: Cranial Nerves Intact (grossly) Neuro Extensive - Mental Status: Alert, Oriented x3, Normal Mood/Affect, Normal Cognition Neuro Extensive - Motor, Sensory, Reflexes: CN II-XII Intact, Normal Gait Psychiatric: Alert, Normal Affect, Normal Mood - Patient Data Lab Results Last 24 hrs: Laboratory Results - last 24 hr 04/08/17 04/08/17 Range/Units 01:10 02:54 POC Glucose 99 (70-105) mg/dL C.difficile [id number] Presumptive negative C. difficile Tox (PCR) Negative Result Diagrams: 04/08/17 07:10 04/08/17 07:10 Reggie Results Last 24 hrs: Microbiology 04/08/17 01:10 Stool for WBCs - Final Stool / Feces NO WBC SEEN *Q Meaningful Use (ADM) - VTE *Q VTE Criteria *Q: - Stroke *Q Stroke Criteria *Q: - AMI *Q AMI Criteria *Q: - Problem List (1) Pancreatitis SNOMED Code(s): 71271206 ICD Code: K85.90 - ACUTE PANCREATITIS WITHOUT NECROSIS OR INFECTION, UNSP Status: Acute Priority: High Current Visit: Yes Qualifiers: Chronicity: acute Pancreatitis type: other Acute pancreatitis complication: no infection or necrosis Qualified Code(s): K85.80 - Other acute pancreatitis without necrosis or infection (2) Nausea SNOMED Code(s): 405279985 ICD Code: R11.0 - NAUSEA Status: Acute Priority: High Current Visit: Yes (3) Diarrhea SNOMED Code(s): 08668997 ICD Code: R19.7 - DIARRHEA, UNSPECIFIED Status: Acute Priority: High Current Visit: Yes Qualifiers: Diarrhea type: unspecified type Qualified Code(s): R19.7 - Diarrhea, unspecified (4) Fever SNOMED Code(s): 610807910 ICD Code: R50.9 - FEVER, UNSPECIFIED Status: Acute Priority: High Current Visit: Yes Qualifiers: Fever type: unspecified Qualified Code(s): R50.9 - Fever, unspecified (5) Abdominal pain SNOMED Code(s): 37555427 ICD Code: R10.9 - UNSPECIFIED ABDOMINAL PAIN Status: Resolved Priority: High Current Visit: Yes Qualifiers: Abdominal location: upper abdomen, unspecified Qualified Code(s): R10.10 - Upper abdominal pain, unspecified (6) Pulmonary Yancy's granulomatosis SNOMED Code(s): 606516676 ICD Code: M31.30 - YANCY'S GRANULOMATOSIS WITHOUT RENAL INVOLVEMENT Status: Chronic Priority: Medium Current Visit: No (7) CAD (coronary artery disease) SNOMED Code(s): 29258812 ICD Code: I25.10 - ATHSCL HEART DISEASE OF [place] CORONARY ARTERY W/O ANG PCTRS Status: Chronic Priority: Medium Current Visit: No Qualifiers: Coronary Disease-Associated Artery/Lesion type: unspecified vessel or lesion type [place] vs. transplanted heart: [place] heart Associated angina: angina presence unspecified Qualified Code(s): I25.10 - Atherosclerotic heart disease of [place] coronary artery without angina pectoris (8) HLD (hyperlipidemia) SNOMED Code(s): 47843593 ICD Code: E78.5 - HYPERLIPIDEMIA, UNSPECIFIED Status: Chronic Priority: Low Current Visit: No Qualifiers: Hyperlipidemia type: unspecified Qualified Code(s): E78.5 - Hyperlipidemia , unspecified (9) HTN (hypertension) SNOMED Code(s): 01831469 ICD Code: I10 - ESSENTIAL (PRIMARY) HYPERTENSION Status: Chronic Priority : Low Current Visit: No Qualifiers: Hypertension type: essential hypertension Qualified Code(s): I10 - Essential (primary) hypertension (10) History of NC (myocardial infarction) SNOMED Code(s): 212572001 ICD Code: I25.2 - OLD MYOCARDIAL INFARCTION Status: Chronic Priority: Low Current Visit: No (11) Anxiety SNOMED Code(s): 56782285 ICD Code: F41.9 - ANXIETY DISORDER, UNSPECIFIED Status: Chronic Priority : Low Current Visit: No (12) GERD (gastroesophageal reflux disease) SNOMED Code(s): 883790822 ICD Code: K21.9 - GASTRO-ESOPHAGEAL REFLUX DISEASE WITHOUT ESOPHAGITIS Status: Acute Current Visit: Yes Problem List Initiated/Reviewed/Updated: Yes Orders Last 24hrs: Active Orders 24 hr Category Date Time Status Patient Status [ADT] Routine ADT 04/08/17 02:36 Active Blood Glucose Check, Bedside [RC] QIDACANDBED Care 04/08/17 05:48 Active Up ad Ngozi [RC] ASDIRECTED Care 04/08/17 05:33 Active Clear Liquid Diet [DIET] Diet 04/08/17 Breakfast Active CBC WITH AUTO DIFF [HEME] Routine Lab 04/08/17 07:00 Ordered CMP [COMPREHENSIVE METABOLIC PN,CMP] [CHEM] Routine Lab 04/08/17 07:00 Ordered CULTURE BLOOD [BC] Stat Lab 04/08/17 03:55 Received CULTURE BLOOD [BC] Stat Lab 04/08/17 04:12 Received TROPONIN I [CHEM] Routine Lab 04/08/17 07:00 Ordered Acetaminophen [Tylenol] Med 04/08/17 04:11 Active 975 mg PO Q4H PRN Ondansetron [Zofran] Med 04/08/17 05:35 Active 4 mg IVPUSH Q6H PRN Blood Culture x2 Reflex Set [OM.PC] Stat Oth 04/08/17 03:35 Ordered Code Status [Resuscitation Status] Routine Resus Stat 04/08/17 05:34 Ordered Medication Orders Acetaminophen (Tylenol) 975 mg PO Q4H PRN PRN Reason: Fever Last Admin: 04/08/17 04:00 Dose: 975 mg Sodium Chloride (Normal Saline) 1,000 mls @ 150 mls/hr IV ASDIRECTED MICHELE Last Admin: 04/08/17 06:04 Dose: 150 mls/hr Infusion: 04/08/17 05:51 Dose: 150 mls/hr Admin: 04/07/17 23:10 Dose: 150 mls/hr Ondansetron HCl (Zofran) 4 mg IVPUSH Q6H PRN PRN Reason: Nausea Sodium Chloride (Saline Flush) 10 ml FLUSH ASDIRECTED PRN PRN Reason: Keep Vein Open Last Admin: 04/07/17 19:45 Dose: 10 ml Assessment/Plan Comment:: I/P: Pancreatitis -Acute onset of upper quadrant abdominal pain, nausea, diarrhea, low grade fever -Wbc 8.03 -Lipase 596-->231 -AST 19, ALT 23, Alk. Phos. 75 -Glucose 118 -2L fluid bolus given in ED -Fluids as ordered -Clear liquid diet - advance diet as tolerated -antiemetics -Incomplete Marcio's Criteria (No LDH obtained) = 1 point (1% predicted mortality) Fever of unknown origin -101 overnight, 99.3 now -CXR, UA, influenza, all negative -Repeat influenza, order mycoplasma pneumonia -WBC 8.03-->5.06 -CRP ordered Chronic: Apex's Disease CAD HLD HTN Hx/o NC GPA GERD CVA Occular stroke Anxiety Depression Type II DM - Home metformin, Plan: Admit to medical floor - observation status CM for discharge planing He is ambulatory so will hold off PT/OT for now Routine AM labs Other orders as indicated above Home medications as ordered Code status: Full Code; PCP: BLOSSOM Gracia, here at [facility]
--- NOTE | 2017-04-08 07:32 | CR ---
Abdominal series: Supine and upright views of the abdomen were obtained as well as frontal view of the chest. Comparison: Prior chest x-ray of 03/17/[address] abdomen and pelvis exam of 03/17/17 is available. Heart size and mediastinum are normal. Lungs are clear. Bony structures appear unremarkable for the patient's age. Multiple calcified granulomas are seen within the spleen. Bowel gas pattern is unremarkable. Phleboliths are identified within the pelvis. Bony structures are grossly intact. Impression: 1. Incidental findings. Nothing acute is seen on abdominal series. Diagnostic code #2
[2017-04-08] MEDS: Famotidine 20 MG Tab PO SCH ×2 (10:01→21:50)
[2017-04-08] MEDS ORDERED: INDOMETHACIN 50 MG PO PRN (11:25)
[2017-04-08] MEDS ORDERED: Ondansetron 4 MG Tab.DIS PO PRN (11:25)
[2017-04-08] MEDS ORDERED: Nitroglycerin 0.4 MG Tab.SL (PTOM) SL PRN (11:25)
[2017-04-08] MEDS ORDERED: Albuterol 0.083% 2.5 MG/3 ML Neb Soln NEB PRN (11:25)
[2017-04-08] MEDS ORDERED: METFORMIN 750 MG PO SCH ×3 (11:30→17:00)
[2017-04-08] MEDS ORDERED: 50% Dextrose in Water 50 ML Syringe IVPUSH PRN (12:24)
[2017-04-08] MEDS: LOSARTAN 25 MG PO SCH (13:13)
[2017-04-08] MEDS: FLUOXETINE 20 MG PO SCH (13:16)
[2017-04-08] MEDS: [UNRECOGNIZED DRUG - OTHER] PO SCH (13:17)
[2017-04-08] MEDS: ROSUVASTATIN 40 MG PO SCH (13:17)
[2017-04-08] MEDS: Sulfamethoxazole/Trimethoprim 800-160 MG Tab (PTOM) PO SCH ×2 (13:18→21:50)
[2017-04-08] MEDS: Metoprolol Succinate 25 MG Tab.ER (PTOM) PO SCH (13:19)
[2017-04-08] MEDS: Insulin Detemir 100 Units/ML 3 ML Pen SUBCUT SCH ×2 (13:29→21:49)
[2017-04-08] MEDS: Aspirin 81 MG Tab.EC PO SCH (13:30)
[2017-04-08] MEDS: FLUTICASONE INH SCH ×2 (13:35→21:06)
[2017-04-08] MEDS ORDERED: Acetaminophen/Butalbital/Caffeine 325-50-40 MG Tab PO PRN (16:01)
[2017-04-08] MEDS: Insulin Aspart 100 Units/ML 3 ML Pen SUBCUT SCH ×2 (18:08→21:54)
[2017-04-08] MEDS ORDERED: Temazepam 15 MG Cap PO PRN (20:23)
[2017-04-09] MEDS: Sodium Chloride 0.9% 1,000 ML IV SCH (02:43)
[2017-04-09] MEDS: Insulin Aspart 100 Units/ML 3 ML Pen SUBCUT SCH ×2 (07:08→12:30)
[2017-04-09] MEDS: FLUTICASONE INH SCH (08:53)
[2017-04-09] MEDS ORDERED: COENZYME Q10 PO SCH (09:00)
[2017-04-09] MEDS ORDERED: [UNRECOGNIZED DRUG - OTHER] PO SCH (09:00)
[2017-04-09] MEDS: Insulin Detemir 100 Units/ML 3 ML Pen SUBCUT SCH (10:05)
[2017-04-09] MEDS: Aspirin 81 MG Tab.EC PO SCH (10:06)
[2017-04-09] MEDS: LOSARTAN 25 MG PO SCH (10:06)
[2017-04-09] MEDS: Famotidine 20 MG Tab PO SCH (10:06)
[2017-04-09] MEDS: FLUOXETINE 20 MG PO SCH (10:09)
[2017-04-09] MEDS: [UNRECOGNIZED DRUG - OTHER] PO SCH (10:09)
[2017-04-09] MEDS: Sulfamethoxazole/Trimethoprim 800-160 MG Tab (PTOM) PO SCH (10:10)
[2017-04-09] MEDS: Metoprolol Succinate 25 MG Tab.ER (PTOM) PO SCH (10:10)
[2017-04-09] MEDS: ROSUVASTATIN 40 MG PO SCH (10:10)
[2017-04-09 14:26] VITALS: BP 138/64
--- NOTE | 2017-04-09 14:27 | PCM.DCSUM1 ---
Discharge Summary - Hospital Course HPI Initial Comments: Brock Curtis is a 56 yo male who presented late last (04/08/17) night with diarrhea and upper abdominal pain. He reports he did not feel good last night and actually eating. Low-grade temperature 100.2. 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 He has body aches but no cough, chest pain, shortness of breath, dysuria. It isn't watery diarrhea for the past few hours. He denies any bad food or sick contacts. His did not feels it in the past couple of days. He did have nausea but no vomiting. In the ED temp was 99.8. Pulse was 101. Respirations 18. Blood pressure 126/ 78. Pulse ox 98% labs are obtained: 30 mL 8.03. Hemoglobin 14.1. Hematocrit 42.9. He is normocytic. Put 258,000. Neutrophils are elevated at 88.2%. Sodium was good at 139. Potassium 3.8. Chloride 104. Carbon accident 24. Anion gap 14.8. BUN 12. Creatinine 1.2. EGFR is greater than 60. Glucose elevated at 118. Calcium 8.5. Bilirubin 0.4. Liver enzymes looked good with AST of 19, ALT at 23, alkaline phosphatase at 75. Protein is 6.5. Albumin 3.6. Lipase is elevated at 596. UA is negative. He is given 0.5 Dilaudid for pain, a 2 L fluid bolus, and 4 mg Zofran. Abdominal x-ray shows a few air- fluid levels but no distended bowel. C. difficile by PCR is negative, C. difficile 027NAP 1B1 is presumptive negative. His physical exam in the ED did have some mild tenderness his upper abdomen. He was also found to have bilateral otitis media. He carries a history of [place]'s disease and is immunosupressed, CAD, HLD, HTN , [place], GPA, GERD, CVA, occular stroke, anxiety, depression, Type II DM. He was never a smoker. He subsequently admitted to the medical floor observation status. His PCP is BLOSSOM Gracia, here at [facility]. He is a full code. - Discharge Data Discharge Date: 04/09/17 (Admit Date: 04/08/17) Discharge Disposition: Home, Self-Care 01 Condition: Good - Discharge Diagnosis/Problem(s) (1) Pancreatitis SNOMED Code(s): 20068364 ICD Code: K85.90 - ACUTE PANCREATITIS WITHOUT NECROSIS OR INFECTION, UNSP Status: Resolved Priority: High Current Visit: Yes Qualifiers: Chronicity: acute Pancreatitis type: other Acute pancreatitis complication: no infection or necrosis Qualified Code(s): K85.80 - Other acute pancreatitis without necrosis or infection (2) Nausea SNOMED Code(s): 524745805 ICD Code: R11.0 - NAUSEA Status: Resolved Priority: High Current Visit : Yes (3) Diarrhea SNOMED Code(s): 88228698 ICD Code: R19.7 - DIARRHEA, UNSPECIFIED Status: Resolved Priority: High Current Visit: Yes Qualifiers: Diarrhea type: unspecified type Qualified Code(s): R19.7 - Diarrhea, unspecified (4) Fever SNOMED Code(s): 660024102 ICD Code: R50.9 - FEVER, UNSPECIFIED Status: Resolved Priority: High Current Visit: Yes Qualifiers: Fever type: unspecified Qualified Code(s): R50.9 - Fever, unspecified (5) Abdominal pain SNOMED Code(s): 69005062 ICD Code: R10.9 - UNSPECIFIED ABDOMINAL PAIN Status: Resolved Priority: High Current Visit: Yes Qualifiers: Abdominal location: upper abdomen, unspecified Qualified Code(s): R10.10 - Upper abdominal pain, unspecified (6) Pulmonary Yancy's granulomatosis SNOMED Code(s): 378782313 ICD Code: M31.30 - YANCY'S GRANULOMATOSIS WITHOUT RENAL INVOLVEMENT Status: Chronic Priority: Medium Current Visit: No (7) CAD (coronary artery disease) SNOMED Code(s): 69127755 ICD Code: I25.10 - ATHSCL HEART DISEASE OF [place] CORONARY ARTERY W/O ANG PCTRS Status: Chronic Priority: Medium Current Visit: No Qualifiers: Coronary Disease-Associated Artery/Lesion type: unspecified vessel or lesion type [place] vs. transplanted heart: [place] heart Associated angina: angina presence unspecified Qualified Code(s): I25.10 - Atherosclerotic heart disease of [place] coronary artery without angina pectoris (8) HLD (hyperlipidemia) SNOMED Code(s): 17895858 ICD Code: E78.5 - HYPERLIPIDEMIA, UNSPECIFIED Status: Chronic Priority: Low Current Visit: No Qualifiers: Hyperlipidemia type: unspecified Qualified Code(s): E78.5 - Hyperlipidemia , unspecified (9) HTN (hypertension) SNOMED Code(s): 30492613 ICD Code: I10 - ESSENTIAL (PRIMARY) HYPERTENSION Status: Chronic Priority : Low Current Visit: No Qualifiers: Hypertension type: essential hypertension Qualified Code(s): I10 - Essential (primary) hypertension (10) History of TX (myocardial infarction) SNOMED Code(s): 941495085 ICD Code: I25.2 - OLD MYOCARDIAL INFARCTION Status: Chronic Priority: Low Current Visit: No (11) Anxiety SNOMED Code(s): 73380273 ICD Code: F41.9 - ANXIETY DISORDER, UNSPECIFIED Status: Chronic Priority : Low Current Visit: No (12) GERD (gastroesophageal reflux disease) SNOMED Code(s): 748573139 ICD Code: K21.9 - GASTRO-ESOPHAGEAL REFLUX DISEASE WITHOUT ESOPHAGITIS Status: Acute Current Visit: Yes - Patient Summary/Data Consults: Consultations 04/08/17 09:27 Consult to Case Management [CONS] Routine Hospital Course: I/P: Pancreatitis -Acute onset of upper quadrant abdominal pain, nausea, diarrhea, low grade fever -no leuckocytosis -Lipase 596-->231 -AST 19, ALT 23, Alk. Phos. 75 -Glucose 118 -2L fluid bolus given in ED -Fluids as ordered -Clear liquid diet - advanced and tolerated well -antiemetics -Incomplete Marcio's Criteria (No LDH obtained) = 1 point (1% predicted mortality) Fever of unknown origin--> resolved -101 overnight, 99.3 -CXR, UA, influenza, all negative -Repeat influenza negative, mycoplasma pneumonia negative -WBC 8.03-->5.06-->3.48 -CRP 6.7 Chronic: [place]'s Disease CAD HLD HTN Hx/o [place] GPA GERD CVA Occular stroke Anxiety Depression Type II DM - Home metformin, Plan: Admit to medical floor - observation status CM for discharge planing He is ambulatory so will hold off PT/OT for now Routine AM labs Other orders as indicated above Home medications as ordered Overall he responded well. Fluids were given and his abdominal pain, nausea, and diarrhea subsided. He reported he has been urinating frequently but he has received quite a bit of fluids. He had a full meal last night and tolerated this well. He should follow-up with his PCP in 7-10 days and [facility] as scheduled/needed. He will be discharged home today. - Patient Instructions Diet: Heart Healthy Diet Activity: As Tolerated Driving: May Drive Today Showering/Bathing: May Shower Notify Provider of: Fever, Increased Pain, Nausea and/or Vomiting - Discharge Plan Home Medications: Home Meds Aspirin [[place] Aspirin] 81 mg PO DAILY 05/11/14 [History] Fluticasone Propionate [Flovent] 4 puff IH BID 05/11/14 [History] Pantoprazole [ProTONIX Granules] 40 mg PO DAILY 05/11/14 [History] Sulfamethoxazole/Trimethoprim [Bactrim Ds Tablet] 1 tab PO BID 06/08/14 [History ] Ubidecarenone/Vitamin E Mixed [Coenzyme Q10 200 MG] 1 each PO DAILY #30 capsule 08/03/14 [Rx] FLUoxetine [PROzac] 60 mg PO DAILY 05/01/15 [History] Losartan [Cozaar] 25 mg PO DAILY 07/06/15 [History] Metoprolol Succinate [Toprol XL] 12.5 mg PO DAILY 07/06/15 [History] Nitroglycerin [Nitrostat] 0.4 mg PO Q5M PRN 07/08/16 [History] Rosuvastatin Calcium [Crestor] 40 mg PO DAILY 07/08/16 [History] Albuterol Sulfate 2.5 mg NEB QID PRN 11/09/16 [History] Insulin Glarg,Human.Rec.Analog [LantUS Solostar] 16 units SQ DAILY 01/08/17 [ History] metFORMIN [Glucophage XR] 750 mg PO DAILY 01/08/17 [History] riTUXimab [Rituxan] 1,000 mg IV ASDIRECTED 01/08/17 [History] Indomethacin. 1 tab PO TID PRN 03/06/17 [History] Pseudoephedrine HCl [Sudafed 12 Hour] 1 tab PO BEDTIME PRN 03/17/17 [History] Acetaminophen [Tylenol Extra Strength] 1,000 mg PO Q8H PRN 04/08/17 [History] Multivitamin [[place] Multivitamin] 1 each PO DAILY 04/08/17 [History] Ondansetron [Zofran ODT] 8 mg PO Q6H PRN 04/08/17 [History] Patient Handouts: Acute Pancreatitis Forms: ED Department Discharge Referrals: Shanna Borrego NP [Primary Care Provider] - - General Info Admission Dx/Problem (Free Text: Admission Diagnosis/Problem Admission Diagnosis/Problem Pancreatitis Functional Status: Reports: Pain Controlled, Tolerating Diet, Ambulating, Urinating. Denies: New Symptoms - Review of Systems General: Reports: No Symptoms. Denies: Fever, Weakness, Fatigue, Malaise HEENT: Reports: No Symptoms Pulmonary: Reports: No Symptoms. Denies: Shortness of Breath, Pleuritic Chest Pain, Cough, Sputum, Wheezing Cardiovascular: Reports: No Symptoms. Denies: Chest Pain, Palpitations, Dyspnea on Exertion, Edema, Lightheadedness Gastrointestinal: Reports: No Symptoms. Denies: Abdominal Pain, Constipation, Diarrhea, Nausea, Vomiting Genitourinary: Reports: Frequency. Denies: Dysuria, Burning, Pain Musculoskeletal: Reports: No Symptoms Skin: Reports: No Symptoms Neurological: Reports: No Symptoms Psychiatric: Reports: No Symptoms - Patient Data Vitals - Most Recent: Last Vital Signs Temp 98.8 F 04/09/17 12:47 Pulse 69 04/09/17 12:48 Resp 17 04/09/17 12:47 BP 138/64 04/09/17 12:47 Pulse Ox 100 04/09/17 12:48 Weight - Most Recent: 236 lb 4 oz I&O - Last 24 hours: Intake & Output 04/08/17 04/09/17 04/09/17 22:59 06:59 14:59 Intake Total 3651 1712 480 Output Total 2500 Balance 1151 1712 480 Lab Results - Last 24 hrs: Laboratory Results - last 24 hr 04/08/17 04/08/17 04/09/17 Range/Units 18:01 21:43 04:58 WBC 3.48 L (4.23-9.07) K/mm3 RBC 4.26 L (4.63-6.08) M/mm3 Hgb 12.3 L (13.7-17.5) gm/L Hct 38.5 L (40.1-51.0) % MCV 90.4 (79.0-92.2) fl MCH 28.9 (25.7-32.2) pg MCHC 31.9 L (32.2-35.5) g/dl RDW Std Deviation 43.5 (35.1-43.9) fL Plt Count 203 (163-337) K/mm3 MPV 9.9 (9.4-12.3) fl Neut % (Auto) 59.8 (34.0-67.9) % Lymph % (Auto) 20.1 L (21.8-53.1) % Robertson % (Auto) 15.5 H (5.3-12.2) % Eos % (Auto) 4.0 (0.8-7.0) Baso % (Auto) 0.3 (0.1-1.2) % Neut # (Auto) 2.08 (1.78-5.38) K/mm3 Lymph # (Auto) 0.70 L (1.32-3.57) K/mm3 Robertson # (Auto) 0.54 (0.30-0.82) K/mm3 Eos # (Auto) 0.14 (0.04-0.54) K/mm3 Baso # (Auto) 0.01 (0.01-0.08) K/mm3 Manual Slide Review Normal smear Sodium (136-145) mEq/L Potassium (3.5-5.1) mEq/L Chloride (98-107) mEq/L Carbon Dioxide (21-32) mEq/L Anion Gap (5-15) BUN (7-18) mg/dL Creatinine (0.7-1.3) mg/dL Est Cr Clr Drug Dosing mL/min Estimated GFR (MDRD) (>60) mL/min BUN/Creatinine Ratio (14-18) Glucose (74-106) mg/dL POC Glucose 143 H 108 H (70-105) mg/dL Calcium (8.5-10.1) mg/dL Magnesium (1.8-2.4) mg/dl C-Reactive Protein (<1.0) mg/dL 04/09/17 04/09/17 Range/Units 04:58 06:55 WBC (4.23-9.07) K/mm3 RBC (4.63-6.08) M/mm3 Hgb (13.7-17.5) gm/L Hct (40.1-51.0) % MCV (79.0-92.2) fl MCH (25.7-32.2) pg MCHC (32.2-35.5) g/dl RDW Std Deviation (35.1-43.9) fL Plt Count (163-337) K/mm3 MPV (9.4-12.3) fl Neut % (Auto) (34.0-67.9) % Lymph % (Auto) (21.8-53.1) % Robertson % (Auto) (5.3-12.2) % Eos % (Auto) (0.8-7.0) Baso % (Auto) (0.1-1.2) % Neut # (Auto) (1.78-5.38) K/mm3 Lymph # (Auto) (1.32-3.57) K/mm3 Robertson # (Auto) (0.30-0.82) K/mm3 Eos # (Auto) (0.04-0.54) K/mm3 Baso # (Auto) (0.01-0.08) K/mm3 Manual Slide Review Sodium 145 (136-145) mEq/L Potassium 3.9 (3.5-5.1) mEq/L Chloride 110 H (98-107) mEq/L Carbon Dioxide 28 (21-32) mEq/L Anion Gap 10.9 (5-15) BUN 8 (7-18) mg/dL Creatinine 1.0 (0.7-1.3) mg/dL Est Cr Clr Drug Dosing 84.15 mL/min Estimated GFR (MDRD) > 60 (>60) mL/min BUN/Creatinine Ratio 8.0 L (14-18) Glucose 97 (74-106) mg/dL POC Glucose 99 (70-105) mg/dL Calcium 8.3 L (8.5-10.1) mg/dL Magnesium 2.0 (1.8-2.4) mg/dl C-Reactive Protein 6.7 H* (<1.0) mg/dL [facility] Results - Last 24 hrs: Microbiology 04/08/17 12:35 Aerobic Blood Culture - Preliminary Blood NO GROWTH AFTER 1 DAY Anaerobic Blood Culture - Preliminary NO GROWTH AFTER 1 DAY 04/08/17 03:55 Aerobic Blood Culture - Preliminary Blood - Venous NO GROWTH AFTER 1 DAY Anaerobic Blood Culture - Final 04/08/17 04:12 Aerobic Blood Culture - Preliminary Blood - Venous - Lab Draw NO GROWTH AFTER 1 DAY Anaerobic Blood Culture - Preliminary NO GROWTH AFTER 1 DAY 04/08/17 22:00 Influenza Type A Antigen Screen - Final Nasal, Left NEGATIVE INFLUENZA A VIRUS AG Influenza Type B Antigen Screen - Final NEGATIVE INFLUENZA B VIRUS AG Med Orders - Current: Current Medications Acetaminophen (Tylenol) 975 mg PO Q4H PRN PRN Reason: Fever Last Admin: 04/08/17 12:06 Dose: 975 mg Acetaminophen/Butalbital/Caffeine (Fioricet 325-50-40 Mg) 1 tab PO Q8H PRN PRN Reason: Headache Albuterol (Proventil Neb Soln) 2.5 mg NEB QID PRN PRN Reason: Dyspnea Aspirin (Halfprin) 81 mg PO DAILY [facility] Last Admin: 04/09/17 10:06 Dose: 81 mg Dextrose/Water (Dextrose 50% In Water) 50 ml IVPUSH ASDIRECTED PRN PRN Reason: Hypoglycemia Famotidine (Pepcid) 20 mg PO BID [facility] Last Admin: 04/09/17 10:06 Dose: 20 mg Fluoxetine HCl (Prozac) 60 mg PO DAILY [facility] Last Admin: 04/09/17 10:09 Dose: 60 mg Sodium Chloride (Normal Saline) 1,000 mls @ 75 mls/hr IV ASDIRECTED [facility] Last Admin: 04/09/17 02:43 Dose: 75 mls/hr Insulin Aspart (Novolog) 0 unit SUBCUT QIDACANDBED [facility] PRN Reason: Protocol Last Admin: 04/09/17 12:30 Dose: Not Given Insulin Detemir (Levemir) 8 unit SUBCUT BID [facility] Last Admin: 04/09/17 10:05 Dose: 8 units Losartan Potassium (Cozaar) 25 mg PO DAILY [facility] Last Admin: 04/09/17 10:06 Dose: 25 mg Metoprolol Succinate (Toprol Xl) 12.5 mg PO DAILY [facility] Last Admin: 04/09/17 10:10 Dose: 12.5 mg Nitroglycerin (Nitrostat) 0.4 mg SL Q5M PRN PRN Reason: Chest Pain Ondansetron HCl (Zofran) 4 mg IVPUSH Q6H PRN PRN Reason: Nausea Ondansetron HCl (Zofran Odt) 8 mg PO Q6H PRN PRN Reason: Nausea Fluticasone Mdi ( Flovent) 200mcg ( Ptom) 0 each INH BID [facility] Last Admin: 04/09/17 08:53 Dose: 4 each Indomethacin 50mg (Capsule (Ptom)) 1 each PO TID PRN PRN Reason: Pain Mens Adult Gummy ( (Ptom) 1 each PO DAILY [facility] Last Admin: 04/09/17 10:09 Dose: 1 each Rosuvastatin Tablet (40mg (Crestor) Ptom) 1 each PO DAILY [facility] Last Admin: 04/09/17 10:10 Dose: 1 each High Absorption (Coq10 W/Biperine) 1 each PO DAILY [facility] Last Admin: 04/09/17 10:09 Dose: 1 each Metformin Er 750mg (Tablet (Ptom)) 1 each PO WITHDINNER [facility] Last Admin: 04/08/17 18:16 Dose: 1 each Sodium Chloride (Saline Flush) 10 ml FLUSH ASDIRECTED PRN PRN Reason: Keep Vein Open Last Admin: 04/07/17 19:45 Dose: 10 ml Temazepam (Restoril) 15 mg PO BEDTIME PRN PRN Reason: Insomnia Last Admin: 04/08/17 21:50 Dose: 15 mg Trimethoprim/Sulfamethoxazole (Septra Ds) 1 tab PO BID [facility] Last Admin: 04/09/17 10:10 Dose: 1 tab Discontinued Medications Acetaminophen (Tylenol) 650 mg PO Q4H PRN PRN Reason: Fever Hydromorphone HCl (Dilaudid) 0.5 mg IVPUSH ONETIME ONE Stop: 04/07/17 19:17 Last Admin: 04/07/17 19:46 Dose: 0.5 mg Sodium Chloride (Normal Saline) 1,000 mls @ 1,000 mls/hr IV .BOLUS STA Stop: 04/07/17 20:14 Last Admin: 04/07/17 19:44 Dose: 1,000 mls/hr Sodium Chloride (Normal Saline) 1,000 mls @ 1,000 mls/hr IV ONETIME ONE Stop: 04/07/17 21:56 Last Admin: 04/07/17 20:59 Dose: 1,000 mls/hr Sodium Chloride (Normal Saline) 1,000 mls @ 150 mls/hr IV ASDIRECTED [facility] Last Admin: 04/08/17 06:04 Dose: 150 mls/hr Ondansetron HCl (Zofran) 4 mg IVPUSH ONETIME ONE Stop: 04/07/17 19:16 Last Admin: 04/07/17 19:44 Dose: 4 mg Metformin Er 750mg (Tablet (Ptom)) 750 each PO DAILY [facility] Last Admin: 04/08/17 22:13 Dose: Not Given Metformin Er 750mg (Tablet (Ptom)) 1 each PO DAILY [facility] Last Admin: 04/08/17 22:13 Dose: Not Given - Exam General: Reports: Alert, Oriented, Cooperative, No Acute Distress HEENT: Reports: Pupils Equal, Pupils Reactive, EOMI, Mucous Membr. Moist/[place] Neck: Reports: Supple, Trachea Midline, No JVD Lungs: Reports: Clear to Auscultation, Normal Respiratory Effort Cardiovascular: Reports: Regular Rate, Regular Rhythm GI/Abdominal Exam: Normal Bowel Sounds, Soft, Non-Tender, No Organomegaly, No Distention, No Abnormal Bruit, No Mass, Pelvis Stable (Male) Exam: Deferred Rectal (Males) Exam: Deferred Back Exam: Reports: Normal Inspection, Full Range of Motion Extremities: Normal Inspection, Normal Range of Motion, Non-Tender, No Pedal Edema, Normal Capillary Refill Skin: Reports: Warm, Dry, Intact Neurological: Reports: No New Focal Deficit Psy/Mental Status: Reports: Alert, Normal Affect, Normal Mood *Q Meaningful Use (DIS) - VTE *Q VTE Criteria *Q: - Stroke *Q Stroke Criteria *Q: - AMI *Q AMI Criteria *Q:
== END 2017-04-09 15:13 | disposition home or self-care (01) ==
LOC: JD.ED 17:58 → JD.MS 23:31
PROVIDERS: ADMIT Internal Medicine Cardiovascular Disease; ATTEND Internal Medicine Cardiovascular Disease
DX: K85.80 Other acute pancreatitis without necrosis or infection (principal); M31.30 Wegener's granulomatosis without renal involvement; I25.10 Atherosclerotic heart disease of native coronary artery without angina pectoris; E78.5 Hyperlipidemia, unspecified; I10 Essential (primary) hypertension; K21.9 Gastro-esophageal reflux disease without esophagitis; F41.9 Anxiety disorder, unspecified; F32.9 Major depressive disorder, single episode, unspecified; E11.9 Type 2 diabetes mellitus without complications; R19.7 Diarrhea, unspecified; R50.9 Fever, unspecified; I25.2 Old myocardial infarction; E66.9 Obesity, unspecified; Z79.899 Other long term (current) drug therapy; Z86.73 Personal history of transient ischemic attack (TIA), and cerebral infarction without residual deficits; Z79.82 Long term (current) use of aspirin; Z79.51 Long term (current) use of inhaled steroids; Z79.4 Long term (current) use of insulin; Z68.30 Body mass index [BMI] 30.0-30.9, adult; Z95.5 Presence of coronary angioplasty implant and graft; Z98.890 Other specified postprocedural states
CPT/HCPCS: 36415; 74022; 80048; 80053; 81001; 82962; 83605; 83690; 83735; 84484; 85025; 86140; 86738; 87040; 87493; 87804; 89055; 94640; 94664; 96361; 96374; 96375; 99285; A9270; G0378; J1170; J1815; J2405; J7040; J7050; 99284

== ENCOUNTER 2018-04-11 21:42 | Emergency (ER) | payer OTHER ==
[2018-04-11] MEDS ORDERED: Ondansetron 4 MG/2 ML SDV IVPUSH ONE (22:01)
[2018-04-11] MEDS ORDERED: HYDROmorphone 1 MG/ML Syringe IVPUSH ONE ×2 (22:02→23:29)
[2018-04-11] MEDS ORDERED: Sodium Chloride 0.9% 1,000 ML IV SCH (22:15)
--- NOTE | 2018-04-11 22:24 | EDM.PDOC ---
ED HPI GENERAL MEDICAL PROBLEM - General Chief Complaint: Syncope Stated Complaint: [facility] Time Seen by Provider: 04/11/18 21:49 Source of Information: Reports: Patient History Limitations: Reports: No Limitations - History of Present Illness INITIAL COMMENTS - FREE TEXT/NARRATIVE: This is a 58-year-old male. Onset this evening with a typical headache that seems to start in his right forehead. He took his usual medications for this and laid down in his bed but then he became somewhat nauseated. He got out of bed was going towards the bathroom when the next thing he knew he was on the floor and he had passed out. When he awoke he was very nauseated and was vomiting. He says the headache is his typical headache and he seldom has to use medications causing seldom gets it. It is more of a sharp throbbing type pain in the right forehead it does not go to the back of his neck. He has had nausea with it in the past but never any severe vomiting and never any syncope. He's had no chest pain no cough no congestion no fever no chills. He has had a CAT scan in the past for these headaches and he says they' ve all been normal. He denies any recent illnesses no colds no cough no diarrhea. Right Headache Pain Score (Numeric/FACES): 8 - Related Data Allergies Allergy/AdvReac Type Severity Reaction Status Date / Time No Known Allergies Allergy Verified 04/08/18 08:32 Home Meds: Home Meds Aspirin [[place] Aspirin] 81 mg PO DAILY 05/11/14 [History] Fluticasone Propionate [Flovent] 4 puff IH BID 05/11/14 [History] Pantoprazole [ProTONIX Granules] 40 mg PO DAILY 05/11/14 [History] Sulfamethoxazole/Trimethoprim [Bactrim Ds Tablet] 1 tab PO BID 06/08/14 [History ] Ubidecarenone/Vitamin E Mixed [Coenzyme Q10 200 MG] 1 each PO DAILY #30 capsule 08/03/14 [Rx] FLUoxetine [PROzac] 40 mg PO DAILY 05/01/15 [History] Losartan [Cozaar] 25 mg PO DAILY 07/06/15 [History] Metoprolol Succinate [Toprol XL] 12.5 mg PO DAILY 07/06/15 [History] Nitroglycerin [Nitrostat] 0.4 mg PO Q5M PRN 07/08/16 [History] Rosuvastatin Calcium [Crestor] 40 mg PO DAILY 07/08/16 [History] Albuterol Sulfate 2.5 mg NEB QID PRN 11/09/16 [History] Insulin Glarg,Human.Rec.Analog [LantUS Solostar] 10 units SQ DAILY 01/08/17 [ History] metFORMIN [Glucophage XR] 750 mg PO DAILY 01/08/17 [History] riTUXimab [Rituxan] 1,000 mg IV ASDIRECTED 01/08/17 [History] Indomethacin. 1 tab PO DAILY PRN 03/06/17 [History] Pseudoephedrine HCl [Sudafed 12 Hour] 1 tab PO BEDTIME PRN 03/17/17 [History] Acetaminophen [Tylenol Extra Strength] 1,000 mg PO Q8H PRN 04/08/17 [History] Ondansetron [Zofran ODT] 8 mg PO Q6H PRN 04/08/17 [History] Fluticasone Propionate 2 spray INH DAILY 04/11/18 [History] Insulin Aspart [NovoLOG] 0 unit INJECT ASDIRECTED 04/11/18 [History] Past Medical History HEENT History: Reports: Hard of Hearing, Impaired Vision Other HEENT History: Wears glasses for reading. Cardiovascular History: Reports: CAD, High Cholesterol, Hypertension, [place] Respiratory History: Reports: Other (See Below) Other Respiratory History: GPA; bronchoscopy; scarring Gastrointestinal History: Reports: GERD Neurological History: Reports: CVA Other Neuro History: occular stoke Psychiatric History: Reports: Anxiety, Depression Endocrine/Metabolic History: Reports: Diabetes, Type II, Obesity/BMI 30+ Immunologic History: Reports: Other (See Below) Other Immunologic History: Yancy's disease - Infectious Disease History Infectious Disease History: Reports: Chicken Pox, Influenza, Mumps - Past Surgical History HEENT Surgical History: Reports: Oral Surgery, Other (See Below) Other HEENT Surgeries/Procedures: subglottic stenosis laser sx removal at [facility] Cardiovascular Surgical History: Reports: Coronary Artery Stent Respiratory Surgical History: Reports: Lung Biopsies GI Surgical History: Reports: Colonoscopy Musculoskeletal Surgical History: Reports: Other (See Below) Other Musculoskeletal Surgeries/Procedures:: ACL replaced Social & Family History - Family History Family Medical History: Noncontributory - Caffeine Use Caffeine Use: Reports: Coffee - Living Situation & Occupation Living situation: Reports: , with Spouse 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 Denies: Abdominal Pain : Reports: No Symptoms Musculoskeletal: Denies: Neck Pain Skin: Reports: No Symptoms Neurological: Reports: Headache Psychiatric: Reports: No Symptoms Hematologic/Lymphatic: Reports: No Symptoms - Physical Exam Exam: See Below Exam Limited By: No Limitations General Appearance: Alert, WD/WN, Mild Distress, Other (Active nausea and vomiting in the ER) Eye Exam: Bilateral Eye: Normal Inspection Ears: Normal External Exam, Normal Canal, Normal TMs Nose: Normal Inspection Throat/Mouth: Normal Inspection, Normal Lips, Normal Voice, No Airway Compromise Head Exam: Normocephalic Neck: Supple Respiratory/Chest: No Respiratory Distress, Lungs Clear, Normal Breath Sounds Cardiovascular: Regular Rate, Rhythm, No Murmur GI/Abdominal: Soft, Other (Generalized soreness of the abdomen but no rebound and no localized pain noted, bowel sounds are decreased) Neuro Exam (Abbreviated): Alert, Oriented Back Exam: Full Range of Motion Extremities: Normal Inspection, Normal Range of Motion Psychiatric: Normal Affect, Normal Mood Skin Exam: Warm, Dry Course - Vital Signs Last Recorded V/S: Last Vital Signs Temp 97.6 F 04/11/18 21:53 Pulse 63 04/11/18 21:53 Resp 18 04/11/18 21:53 BP 169/83 H 04/11/18 21:53 Pulse Ox 97 04/11/18 21:53 - Orders/Labs/Meds Orders: Active Orders 24 hr Category Date Time Status Sodium Chloride 0.9% [Normal Saline] 1,000 ml Med 04/11/18 22:15 Active IV ASDIRECTED Medication Orders Sodium Chloride (Normal Saline) 1,000 mls @ 1,000 mls/hr IV ASDIRECTED MICHELE Last Admin: 04/11/18 22:24 Dose: 1,000 mls/hr Labs: Laboratory Tests 04/11/18 04/11/18 Range/Units 22:30 22:30 WBC 8.04 (4.23-9.07) K/mm3 RBC 5.08 (4.63-6.08) M/mm3 Hgb 14.3 (13.7-17.5) gm/L Hct 43.4 (40.1-51.0) % MCV 85.4 (79.0-92.2) fl MCH 28.1 (25.7-32.2) pg MCHC 32.9 (32.2-35.5) g/dl RDW Std Deviation 43.4 (35.1-43.9) fL Plt Count 241 (163-337) K/mm3 MPV 9.2 L (9.4-12.3) fl Neut % (Auto) 66.4 (34.0-67.9) % Lymph % (Auto) 19.4 L (21.8-53.1) % [place] % (Auto) 11.2 (5.3-12.2) % Eos % (Auto) 2.5 (0.8-7.0) Baso % (Auto) 0.1 (0.1-1.2) % Neut # (Auto) 5.34 (1.78-5.38) K/mm3 Lymph # (Auto) 1.56 (1.32-3.57) K/mm3 [place] # (Auto) 0.90 H (0.30-0.82) K/mm3 Eos # (Auto) 0.20 (0.04-0.54) K/mm3 Baso # (Auto) 0.01 (0.01-0.08) K/mm3 Sodium 142 (136-145) mEq/L Potassium 3.3 L (3.5-5.1) mEq/L Chloride 104 (98-107) mEq/L Carbon Dioxide 28 (21-32) mEq/L Anion Gap 13.3 (5-15) BUN 17 (7-18) mg/dL Creatinine 1.4 H (0.7-1.3) mg/dL Est Cr Clr Drug Dosing 59.38 mL/min Estimated GFR (MDRD) 52 (>60) mL/min BUN/Creatinine Ratio 12.1 L (14-18) Glucose 117 H (74-106) mg/dL Calcium 9.2 (8.5-10.1) mg/dL Total Bilirubin 0.3 (0.2-1.0) mg/dL AST 14 L (15-37) U/L ALT 25 (16-63) U/L Alkaline Phosphatase 80 (46-116) U/L Troponin I < 0.017 (0.00-0.056) ng/mL Total Protein 6.6 (6.4-8.2) g/dl Albumin 3.8 (3.4-5.0) g/dl Globulin 2.8 gm/dL Albumin/Globulin Ratio 1.4 (1-2) Meds: Medications Generic Name Dose Route Start Last Admin Trade Name Freq PRN Reason Stop Dose Admin Sodium Chloride 1,000 mls @ 1,000 mls/hr 04/11/18 22:15 04/11/18 22:24 Normal Saline IV 1,000 mls/hr ASDIRECTED MICHELE Administration Discontinued Medications Generic Name Dose Route Start Last Admin Trade Name Terranceq PRN Reason Stop Dose Admin Diphenhydramine HCl 25 mg 04/11/18 23:29 04/11/18 23:51 Benadryl IVPUSH 04/11/18 23:30 25 mg ONETIME ONE Administration Hydromorphone HCl 0.5 mg 04/11/18 22:02 04/11/18 22:24 Dilaudid IVPUSH 04/11/18 22:03 0.5 mg ONETIME ONE Administration Hydromorphone HCl 0.5 mg 04/11/18 23:29 04/11/18 23:50 Dilaudid IVPUSH 04/11/18 23:30 0.5 mg ONETIME ONE Administration Ondansetron HCl 4 mg 04/11/18 22:01 04/11/18 22:24 Zofran IVPUSH 04/11/18 22:02 4 mg ONETIME ONE Administration - Re-Assessments/Exams Free Text/Narrative Re-Assessment/Exam: 04/12/18 00:42 Patient is feeling better though he still has a slight headache in the right forehead. He now tells me that he was diagnosed with optical migraines at one time and they thought might be atypical migraines. He is on indomethacin as well as oxycodone at home for his headaches. It sounds like it when he got up from his bed this evening to go to the bathroom because he felt nauseated he had a vasovagal syncopal episode and awoke with vomit around him. He is feeling better though the headache is not completely gone. Departure - Departure Time of Disposition: 00:43 Disposition: Home, Self-Care 01 Condition: Fair Clinical Impression: Atypical migraine, Vasovagal syncope Nausea & vomiting Qualifiers: Vomiting type: unspecified Vomiting Intractability: non-intractable Qualified Code(s): R11.2 - Nausea with vomiting, unspecified - Discharge Information *PRESCRIPTION DRUG MONITORING PROGRAM REVIEWED*: Not Applicable *COPY OF PRESCRIPTION DRUG MONITORING REPORT IN PATIENT CHANCE: Not Applicable Referrals: Shanna Borrego [employer] CLEANING COUNTER CLERK [Primary Care Provider] - Forms: ED Department Discharge Additional Instructions: Home and sleep with your CPAP as long as you can, if you wake up and you still have some residual headache take the indomethacin and oxycodone right then, rest as much as possible tomorrow, follow-up with your family doctor this week for recheck or return to the ER if her symptoms worsen - My Orders Last 24 Hours: My Active Orders 04/11/18 22:15 Sodium Chloride 0.9% [Normal Saline] 1,000 ml IV ASDIRECTED - Assessment/Plan Last 24 Hours: My Active Orders 04/11/18 22:15 Sodium Chloride 0.9% [Normal Saline] 1,000 ml IV ASDIRECTED
[2018-04-11] MEDS ORDERED: diphenhydrAMINE 50 MG/ML SDV IVPUSH ONE (23:29)
[2018-04-12 00:59] VITALS: BP 138/77
== END 2018-04-12 00:57 | disposition home or self-care (01) ==
LOC: JD.ED 21:42 → SUPCPDRO 21:42 → JD.ED 04-12 00:57
DX: R55 Syncope and collapse (principal); G43.909 Migraine, unspecified, not intractable, without status migrainosus; R11.2 Nausea with vomiting, unspecified; I10 Essential (primary) hypertension; I25.2 Old myocardial infarction; E11.9 Type 2 diabetes mellitus without complications; E66.9 Obesity, unspecified; Z79.82 Long term (current) use of aspirin; Z79.899 Other long term (current) drug therapy
CPT/HCPCS: 36415; 80053; 84484; 85025; 96361; 96374; 96375; 96376; 99284; J1170; J1200; J2405; J7040

== ENCOUNTER 2018-05-13 14:20 | Emergency (ER) | payer OTHER ==
[2018-05-13 14:55] VITALS: BP 145/65
[2018-05-13] MEDS ORDERED: Ketorolac 30 MG/ML SDV IVPUSH ONE (15:35)
[2018-05-13] MEDS ORDERED: diphenhydrAMINE 50 MG/ML SDV IVPUSH ONE (15:37)
[2018-05-13] MEDS ORDERED: Metoclopramide 10 MG/2 ML SDV IVPUSH ONE (15:37)
[2018-05-13] MEDS ORDERED: Sodium Chloride 0.9% 1,000 ML IV SCH (15:45)
--- NOTE | 2018-05-13 17:18 | EDM.PDOC ---
ED HPI GENERAL MEDICAL PROBLEM - General Chief Complaint: Gastrointestinal Problem Stated Complaint: THROWING UP/MIGRAINE Time Seen by Provider: 05/13/18 16:48 Source of Information: Reports: Patient, RN Notes Reviewed History Limitations: Reports: No Limitations - History of Present Illness INITIAL COMMENTS - FREE TEXT/NARRATIVE: Patient is a 58-year-old male who presents to the ED for evaluation of nausea and vomiting since this morning. The patient states that he had a small headache this morning this is located over his right eye. He did taken indomethacin at 10 or 11. He did see his primary care provider, Shanna Borrego, earlier this afternoon for a follow-up from a different visit. He states that he had to active emesis this morning, however the nausea is more bothersome at this time. And is having increased headache pain. He states that he has not been able to eat much or keep much liquids down by mouth. He states that his last BM was yesterday. He denies any shortness of breath or chest pain but does characterize some slight lower abdomen pain he denies any abdomen surgeries. He did try to take some oral Zofran at home for this nausea and he does not note that it provided much relief at all. - Related Data Allergies Allergy/AdvReac Type Severity Reaction Status Date / Time No Known Allergies Allergy Verified 04/22/18 08:42 Home Meds: Home Meds Aspirin [[place] Aspirin] 81 mg PO DAILY 05/11/14 [History] Fluticasone Propionate [Flovent] 4 puff IH BID 05/11/14 [History] Pantoprazole [ProTONIX Granules] 40 mg PO DAILY 05/11/14 [History] Sulfamethoxazole/Trimethoprim [Bactrim Ds Tablet] 1 tab PO BID 06/08/14 [History ] Ubidecarenone/Vitamin E Mixed [Coenzyme Q10 200 MG] 1 each PO DAILY #30 capsule 08/03/14 [Rx] FLUoxetine [PROzac] 40 mg PO DAILY 05/01/15 [History] Losartan [Cozaar] 25 mg PO DAILY 07/06/15 [History] Metoprolol Succinate [Toprol XL] 12.5 mg PO DAILY 07/06/15 [History] Nitroglycerin [Nitrostat] 0.4 mg PO Q5M PRN 07/08/16 [History] Rosuvastatin Calcium [Crestor] 40 mg PO DAILY 07/08/16 [History] Albuterol Sulfate 2.5 mg NEB QID PRN 11/09/16 [History] Insulin Glarg,Human.Rec.Analog [LantUS Solostar] 10 units SQ DAILY 01/08/17 [ History] metFORMIN [Glucophage XR] 750 mg PO DAILY 01/08/17 [History] riTUXimab [Rituxan] 1,000 mg IV ASDIRECTED 01/08/17 [History] Indomethacin. 1 tab PO DAILY PRN 03/06/17 [History] Pseudoephedrine HCl [Sudafed 12 Hour] 1 tab PO BEDTIME PRN 03/17/17 [History] Acetaminophen [Tylenol Extra Strength] 1,000 mg PO Q8H PRN 04/08/17 [History] Ondansetron [Zofran ODT] 8 mg PO Q6H PRN 04/08/17 [History] Fluticasone Propionate 2 spray INH DAILY 04/11/18 [History] Insulin Aspart [NovoLOG] 0 unit INJECT ASDIRECTED 04/11/18 [History] Past Medical History HEENT History: Reports: Hard of Hearing, Impaired Vision Other HEENT History: Wears glasses for reading. Cardiovascular History: Reports: CAD, High Cholesterol, Hypertension, [place] Respiratory History: Reports: Other (See Below) Other Respiratory History: GPA; bronchoscopy; scarring Gastrointestinal History: Reports: GERD Neurological History: Reports: CVA Other Neuro History: occular stoke Psychiatric History: Reports: Anxiety, Depression Endocrine/Metabolic History: Reports: Diabetes, Type II, Obesity/BMI 30+ Immunologic History: Reports: Other (See Below) Other Immunologic History: Yancy's disease - Infectious Disease History Infectious Disease History: Reports: Chicken Pox, Influenza, Mumps - Past Surgical History HEENT Surgical History: Reports: Oral Surgery, Other (See Below) Other HEENT Surgeries/Procedures: subglottic stenosis laser sx removal at [place] Cardiovascular Surgical History: Reports: Coronary Artery Stent Respiratory Surgical History: Reports: Lung Biopsies GI Surgical History: Reports: Colonoscopy Musculoskeletal Surgical History: Reports: Other (See Below) Other Musculoskeletal Surgeries/Procedures:: ACL replaced Social & Family History - Family History Family Medical History: Noncontributory - Tobacco Use Smoking Status *Q: Never Smoker Second Hand Smoke Exposure: No - Caffeine Use Caffeine Use: Reports: Coffee - Recreational Drug Use Recreational Drug Use: No - Living Situation & Occupation Living situation: Reports: , with Spouse 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 Denies: Constipation, Diarrhea : Reports: No Symptoms Musculoskeletal: Reports: No Symptoms Skin: Reports: No Symptoms Neurological: Reports: No Symptoms Psychiatric: Reports: No Symptoms Hematologic/Lymphatic: Reports: No Symptoms Immunologic: Reports: No Symptoms ED EXAM, GI/ABD - Physical Exam Exam: See Below Exam Limited By: No Limitations General Appearance: Alert, WD/WN, No Apparent Distress Eyes: Bilateral: Normal Appearance Ears: Normal External Exam Nose: Normal Inspection Throat/Mouth: Normal Inspection, Normal Oropharynx, No Airway Compromise Head: Atraumatic, Normocephalic Neck: Normal Inspection Respiratory/Chest: No Respiratory Distress, Lungs Clear, Normal Breath Sounds, No Accessory Muscle Use, Chest Non-Tender Cardiovascular: Normal Peripheral Pulses, Regular Rate, Rhythm, No Murmur GI/Abdominal Exam: Normal Bowel Sounds, Soft, Non-Tender, No Distention Extremities: Normal Inspection, Normal Capillary Refill Neurological: Alert, Oriented, Normal Cognition, No Motor/Sensory Deficits Psychiatric: Normal Affect, Normal Mood Skin Exam: Warm, Dry, Intact, Normal Color, No Rash Course - Vital Signs Last Recorded V/S: Last Vital Signs Temp 98.1 F 05/13/18 14:49 Pulse 66 05/13/18 14:49 Resp 18 05/13/18 14:49 BP 145/65 H 05/13/18 14:49 Pulse Ox 94 L 05/13/18 14:49 Orthostatic Blood Pressure [ 132/67 Standing] Orthostatic Blood Pressure [ 132/82 Supine] - Orders/Labs/Meds Labs: Laboratory Tests 05/13/18 05/13/18 05/13/18 Range/Units 19:00 19:08 19:08 WBC 4.71 (4.23-9.07) K/mm3 RBC 4.77 (4.63-6.08) M/mm3 Hgb 13.5 L (13.7-17.5) gm/L Hct 41.4 (40.1-51.0) % MCV 86.8 (79.0-92.2) fl MCH 28.3 (25.7-32.2) pg MCHC 32.6 (32.2-35.5) g/dl RDW Std Deviation 44.1 H (35.1-43.9) fL Plt Count 187 (163-337) K/mm3 MPV 9.2 L (9.4-12.3) fl Neutrophils % (Manual) 88 H (40-60) % Band Neutrophils % 1 (0-10) % Lymphocytes % (Manual) 8 L (20-40) % Atypical Lymphs % 0 % Monocytes % (Manual) 3 (2-10) % Eosinophils % (Manual) 0 L (0.8-7.0) % Basophils % (Manual) 0 L (0.2-1.2) Platelet Estimate Adequate RBC Morph Comment Normal Sodium 136 (136-145) mEq/L Potassium 4.1 (3.5-5.1) mEq/L Chloride 102 (98-107) mEq/L Carbon Dioxide 29 (21-32) mEq/L Anion Gap 9.1 (5-15) BUN 16 (7-18) mg/dL Creatinine 1.4 H (0.7-1.3) mg/dL Est Cr Clr Drug Dosing 59.38 mL/min Estimated GFR (MDRD) 52 (>60) mL/min BUN/Creatinine Ratio 11.4 L (14-18) Glucose 109 H (74-106) mg/dL Calcium 8.9 (8.5-10.1) mg/dL Total Bilirubin 0.4 (0.2-1.0) mg/dL AST 15 (15-37) U/L ALT 22 (16-63) U/L Alkaline Phosphatase 79 (46-116) U/L Total Protein 6.3 L (6.4-8.2) g/dl Albumin 3.5 (3.4-5.0) g/dl Globulin 2.8 gm/dL Albumin/Globulin Ratio 1.3 (1-2) Lipase 296 (73-393) U/L Urine Color Yellow (Yellow) Urine Appearance Clear (Clear) Urine pH 6.0 (5.0-8.0) Ur Specific [place] 1.015 (1.005-1.030) Urine Protein Negative (Negative) Urine Glucose (UA) Negative (Negative) Urine Ketones Negative (Negative) Urine Occult Blood Negative (Negative) Urine Nitrite Negative (Negative) Urine Bilirubin Negative (Negative) Urine Urobilinogen 0.2 (0.2-1.0) Ur Leukocyte Esterase Negative (Negative) Urine RBC Not seen (0-5) /hpf Urine WBC 0-5 (0-5) /hpf Ur Epithelial Cells Not seen (0-5) /hpf Urine Bacteria Not seen (FEW) /hpf Urine Mucus Rare H (FEW) /hpf Meds: Medications Discontinued Medications Generic Name Dose Route Start Last Admin Trade Name Freq PRN Reason Stop Dose Admin Diphenhydramine HCl 50 mg 05/13/18 15:37 05/13/18 16:33 Benadryl IVPUSH 05/13/18 15:38 50 mg ONETIME ONE Administration Sodium Chloride 1,000 mls @ 999 mls/hr 05/13/18 15:45 05/13/18 16:40 Normal Saline IV 999 mls/hr ASDIRECTED MICHELE Administration Ketorolac Tromethamine 30 mg 05/13/18 15:35 05/13/18 16:37 Toradol IVPUSH 05/13/18 15:36 30 mg ONETIME ONE Administration Metoclopramide HCl 10 mg 05/13/18 15:37 05/13/18 16:35 Reglan IVPUSH 05/13/18 15:38 10 mg ONETIME ONE Administration - Re-Assessments/Exams Free Text/Narrative Re-Assessment/Exam: 05/13/18 23:06 Patient presented to the ED for evaluation of a headache/nausea. The triage nurse did start headache protocol and did do IV fluid bolus, 10 mg IV Reglan, 30 mg IV Toradol, 50 mg Benadryl. As he did have to wait almost 2 hours to be initially seen he states that his headache has subsided now and the nausea has gotten better as well. I did order a CBC, CMP, lipase for further evaluation, as he and his state that his symptoms today were similar in times past where he had pancreatitis. When the labs were resulted it did not show any increase in his lipase levels, and no increased white count, the patient was discharged home with general instructions and recommendations. Departure - Departure Time of Disposition: 19:50 Disposition: Home, Self-Care 01 Condition: Fair Clinical Impression: Nausea and vomiting Qualifiers: Vomiting type: unspecified Vomiting Intractability: non-intractable Qualified Code(s): R11.2 - Nausea with vomiting, unspecified - Discharge Information *PRESCRIPTION DRUG MONITORING PROGRAM REVIEWED*: No *COPY OF PRESCRIPTION DRUG MONITORING REPORT IN PATIENT CHANCE: No Instructions: Nausea and Vomiting, Adult, [id number] Referrals: Shanna Borrego [employer] CLEANER HAND [Primary Care Provider] - Forms: ED Department Discharge Additional Instructions: You have been evaluated the ED today for a nausea vomiting/headache. Your labs do not demonstrate that you are having any type of bacterial infection , or pancreatitis today. Please take your oral Zofran as directed at home for nausea, and take this as previously prescribed. If the symptoms persist longer than a few days, please seek care from your primary care provider Britany Borrego for further evaluation. Please return to the ED if your symptoms change or worsen.
== END 2018-05-13 20:04 | disposition home or self-care (01) ==
LOC: JD.ED 14:20
DX: R11.2 Nausea with vomiting, unspecified (principal); R10.30 Lower abdominal pain, unspecified; R51 Headache; I10 Essential (primary) hypertension; I25.10 Atherosclerotic heart disease of native coronary artery without angina pectoris; I25.2 Old myocardial infarction; E11.9 Type 2 diabetes mellitus without complications; E66.9 Obesity, unspecified; Z86.73 Personal history of transient ischemic attack (TIA), and cerebral infarction without residual deficits; Z95.5 Presence of coronary angioplasty implant and graft; Z79.4 Long term (current) use of insulin; Z79.82 Long term (current) use of aspirin; Z79.899 Other long term (current) drug therapy
CPT/HCPCS: 36415; 80053; 81001; 83690; 85007; 85027; 96361; 96374; 96375; 99283; J1200; J1885; J2765; J7040; 99284

== ENCOUNTER 2019-04-23 17:02 | Emergency (ER) | payer OTHER ==
[2019-04-23 17:11] VITALS: BP 146/78; PULSE 62
--- NOTE | 2019-04-23 19:26 | EDM.PDOC ---
ED HPI GENERAL MEDICAL PROBLEM - General Chief Complaint: Cardiovascular Problem Stated Complaint: CHEST PAIN Time Seen by Provider: 04/23/19 17:48 Source of Information: Reports: Patient, RN Notes Reviewed - History of Present Illness INITIAL COMMENTS - FREE TEXT/NARRATIVE: 59-year-old male comes in with sensation of generalized weakness, mild nausea, dizziness at home that is now somewhat better. He has do have anemia where he is able his cardiac rhythm at home and this read out as "possible A. fib". He has not been aware of any palpitations. He has had no chest pain with this or difficulty breathing. Strip hypertension, diabetes, previous NV with multiple stents. He has not been recently ill. No recent cough fever or chills. No abdominal pain, vomiting or diarrhea. - Related Data Allergies Allergy/AdvReac Type Severity Reaction Status Date / Time No Known Allergies Allergy Verified 04/23/19 17:10 Home Meds: Home Meds Aspirin [[place] Aspirin] 81 mg PO DAILY 05/11/14 [History] Fluticasone Propionate [Flovent] 4 puff IH BID 05/11/14 [History] Pantoprazole [ProTONIX Granules] 40 mg PO DAILY 05/11/14 [History] Sulfamethoxazole/Trimethoprim [Bactrim Ds Tablet] 1 tab PO BID 06/08/14 [History ] FLUoxetine [PROzac] 40 mg PO DAILY 05/01/15 [History] Losartan [Cozaar] 25 mg PO DAILY 07/06/15 [History] Metoprolol Succinate [Toprol XL] 25 mg PO DAILY 07/06/15 [History] Nitroglycerin [Nitrostat] 0.4 mg PO Q5M PRN 07/08/16 [History] Rosuvastatin Calcium [Crestor] 40 mg PO DAILY 07/08/16 [History] Albuterol Sulfate 2.5 mg NEB QID PRN 11/09/16 [History] Insulin Glarg,Human.Rec.Analog [LantUS Solostar] 10 units SQ DAILY 01/08/17 [ History] metFORMIN [Glucophage XR] 750 mg PO BEDTIME 01/08/17 [History] riTUXimab [Rituxan] 1,000 mg IV ASDIRECTED 01/08/17 [History] Acetaminophen [Tylenol Extra Strength] 650 mg PO Q8H PRN 04/08/17 [History] Fluticasone Propionate 2 spray JARRED DAILY 04/11/18 [History] Insulin Aspart [NovoLOG] 0 unit INJECT ASDIRECTED 04/11/18 [History] Ticagrelor [Brilinta] 90 mg PO BID 11/07/18 [History] Indomethacin 50 mg PO ASDIRECTED PRN 04/23/19 [History] LORazepam [Ativan] 0.5 mg PO DAILY PRN 04/23/19 [History] Past Medical History HEENT History: Reports: Hard of Hearing, Impaired Vision Other HEENT History: Wears glasses for reading. Cardiovascular History: Reports: CAD, High Cholesterol, Hypertension, [place] Respiratory History: Reports: Other (See Below) Other Respiratory History: GPA; bronchoscopy; scarring Gastrointestinal History: Reports: GERD Genitourinary History: Reports: None Neurological History: Reports: CVA Other Neuro History: occular stoke Psychiatric History: Reports: Anxiety, Depression Endocrine/Metabolic History: Reports: Diabetes, Type II, Obesity/BMI 30+ Hematologic History: Reports: None Immunologic History: Reports: Other (See Below) Other Immunologic History: Yancy's disease Oncologic (Cancer) History: Reports: None Dermatologic History: Reports: None - Infectious Disease History Infectious Disease History: Reports: Chicken Pox, Influenza, Mumps - Past Surgical History HEENT Surgical History: Reports: Oral Surgery, Other (See Below) Other HEENT Surgeries/Procedures: subglottic stenosis laser sx removal at [place] Cardiovascular Surgical History: Reports: Coronary Artery Stent Respiratory Surgical History: Reports: Lung Biopsies GI Surgical History: Reports: Colonoscopy Musculoskeletal Surgical History: Reports: Other (See Below) Other Musculoskeletal Surgeries/Procedures:: ACL replaced Social & Family History - Family History Family Medical History: Noncontributory - Tobacco Use Smoking Status *Q: Never Smoker - Caffeine Use Caffeine Use: Reports: Soda - Recreational Drug Use Recreational Drug Use: No - Living Situation & Occupation Living situation: Reports: , with Spouse 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 Denies: Abdominal Pain, Diarrhea Musculoskeletal: Denies: Neck Pain, Shoulder Pain, Arm Pain Skin: Reports: No Symptoms Neurological: Reports: Dizziness. Denies: Numbness, Tingling (Now better), Trouble Speaking, Difficulty Walking, Weakness ED EXAM, GENERAL - Physical Exam Exam: See Below General Appearance: Alert, No Apparent Distress Eye Exam: Bilateral Eye: PERRL Throat/Mouth: Normal Inspection, Normal Oropharynx Head: Atraumatic Neck: Supple, Full Range of Motion Respiratory/Chest: No Respiratory Distress, Lungs Clear, Normal Breath Sounds Cardiovascular: Other (Mildly irregular rhythm) GI/Abdominal: Soft, Non-Tender Extremities: Normal Inspection. No: Pedal Edema, Leg Pain, Increased Warmth, Redness Neurological: Alert, Oriented, No Motor/Sensory Deficits Skin Exam: Dry, Normal Color EKG INTERPRETATION EKG Date: 04/23/19 Rhythm: Other (Normal sinus rhythm, frequent PACs noted) Conrad: Normal P-Wave: Present QRS: Normal ST-T: Normal Course - Vital Signs Last Recorded V/S: Last Vital Signs Temp 97 F 04/23/19 17:07 Pulse 62 04/23/19 17:07 Resp 16 04/23/19 17:07 BP 146/78 H 04/23/19 17:07 Pulse Ox 100 04/23/19 17:07 - Orders/Labs/Meds Labs: Laboratory Tests 04/23/19 04/23/19 Range/Units 17:12 17:12 WBC 7.72 (4.23-9.07) K/mm3 RBC 5.13 (4.63-6.08) M/mm3 Hgb 14.4 (13.7-17.5) gm/dl Hct 44.6 (40.1-51.0) % MCV 86.9 (79.0-92.2) fl MCH 28.1 (25.7-32.2) pg MCHC 32.3 (32.2-35.5) g/dl RDW Std Deviation 45.1 H (35.1-43.9) fL Plt Count 307 (163-337) K/mm3 MPV 10.2 (9.4-12.3) fl Neut % (Auto) 55.6 (34.0-67.9) % Lymph % (Auto) 30.4 (21.8-53.1) % [place] % (Auto) 12.8 H (5.3-12.2) % Eos % (Auto) 0.8 (0.8-7.0) Baso % (Auto) 0.1 (0.1-1.2) % Neut # (Auto) 4.29 (1.78-5.38) K/mm3 Lymph # (Auto) 2.35 (1.32-3.57) K/mm3 Rab[place] # (Auto) 0.99 H (0.30-0.82) K/mm3 Eos # (Auto) 0.06 (0.04-0.54) K/mm3 Baso # (Auto) 0.01 (0.01-0.08) K/mm3 Sodium 139 (136-145) mEq/L Potassium 3.3 L (3.5-5.1) mEq/L Chloride 101 (98-107) mEq/L Carbon Dioxide 25 (21-32) mEq/L Anion Gap 16.3 H (5-15) BUN 30 H (7-18) mg/dL Creatinine 1.6 H (0.7-1.3) mg/dL Est Cr Clr Drug Dosing 52.95 mL/min Estimated GFR (MDRD) 44 (>60) mL/min BUN/Creatinine Ratio 18.8 H (14-18) Glucose 112 H (74-106) mg/dL Calcium 9.7 (8.5-10.1) mg/dL Total Bilirubin 0.3 (0.2-1.0) mg/dL AST 19 (15-37) U/L ALT 30 (16-63) U/L Alkaline Phosphatase 97 (46-116) U/L Troponin I < 0.017 (0.00-0.056) ng/mL Total Protein 7.8 (6.4-8.2) g/dl Albumin 4.6 (3.4-5.0) g/dl Globulin 3.2 gm/dL Albumin/Globulin Ratio 1.4 (1-2) - Re-Assessments/Exams Free Text/Narrative Re-Assessment/Exam: 04/25/19 11:32 EKG did not show acute changes, chest x-ray normal, labs all relatively normal including normal troponin as expected. 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 At no time was there atrial fibrillation. Did review the rhythm associated with her cell phone amp and there was enough irregularity with that making it understandable of the impression of possible A. fib. There did seem to be P waves visible with some of the QRS complexes, however quite frequent PACs and a lot of irregularity comparedwith current rhythm here in the ED much more regular. This has been discussed with patient and his . They're comfortable with the knowledge he is not in A. fib and that he is not having acute coronary syndrome at this time. Return precautions discussed. Discharge instructions as documented. Departure - Departure Time of Disposition: 19:40 Disposition: Home, Self-Care 01 Condition: Fair Clinical Impression: Atrial premature beats Instructions: Premature Ventricular Contraction Referrals: Shanna Borrego, RELIGIOUS STUDIES PROFESSOR [Primary Care Provider] - Forms: ED Department Discharge Additional Instructions: Continue current medications, drink plenty of water to maintain hydration. If you do have further dizzy spells like this evening be sure to lie down or get your head down so you do not pass out. Follow-up with your local provider as needed, call or see Dr Bush as needed, return to ED as needed if symptoms worsening in any way. Sepsis Event Note - Evaluation Sepsis Screening Result: No Definite Risk - Focused Exam Date Exam was Performed: 04/25/19 Time Exam was Performed: 11:26
--- NOTE | 2019-04-24 07:32 | CR ---
Chest: Portable view of the chest was obtained. Comparison: Prior chest x-ray of 10/22/18. Heart size and mediastinum are within normal limits for portable technique. Lungs show no acute parenchymal change. Bony structures are grossly intact. Impression: 1. Nothing acute is appreciated on portable chest x-ray. Diagnostic code #1 This report was dictated in [place] Standard Time
== END 2019-04-23 20:27 | disposition home or self-care (01) ==
LOC: JD.ED 17:02
DX: I49.1 Atrial premature depolarization (principal); I25.10 Atherosclerotic heart disease of native coronary artery without angina pectoris; E78.00 Pure hypercholesterolemia, unspecified; I10 Essential (primary) hypertension; I25.2 Old myocardial infarction; E11.9 Type 2 diabetes mellitus without complications; E66.9 Obesity, unspecified; Z79.82 Long term (current) use of aspirin; Z79.899 Other long term (current) drug therapy; Z79.4 Long term (current) use of insulin; Z86.73 Personal history of transient ischemic attack (TIA), and cerebral infarction without residual deficits; Z68.32 Body mass index [BMI] 32.0-32.9, adult
CPT/HCPCS: 36415; 71045; 71045-26; 80053; 84484; 85025; 93005; 93010; 99282; 99285-25

== ENCOUNTER 2019-05-16 16:13 | Emergency (ER) | payer OTHER ==
[2019-05-16] MEDS ORDERED: Metoclopramide 10 MG/2 ML SDV IVPUSH ONE (16:15)
--- NOTE | 2019-05-16 16:16 | EDM.PDOC ---
ED HPI GENERAL MEDICAL PROBLEM - General Chief Complaint: Cardiovascular Problem Stated Complaint: [facility] Time Seen by Provider: 05/16/19 16:15 Source of Information: Reports: Patient, EMS History Limitations: Reports: Other ( presents to the ED acutely vomiting.) - History of Present Illness INITIAL COMMENTS - FREE TEXT/NARRATIVE: 59-year-old male presents to the ED per [facility]. Patient states that he started to feel unwell at home approximately 20 minutes before coming to the ED. He was feeling dizzy lightheaded mildly short of breath but no associated chest pain. He felt for a while that he might actually pass out. He has a history of coronary disease and has [address] He has not known to have any arrhythmias but there was some suggestion that he was having frequent PACs versus paroxysmal atrial fibrillation April 19 of this month and was seen through the ED with no positive findings. He presented to the ED on the gurney and started vomiting precipitously filling an emesis bag. He states he feels better since he vomited. He has had no diarrhea. He ate a normal breakfast i.e. cereal and he did have some lunch. There was no blood in the emesis. Denies having any chest pain. I could not get a firm history that he was experiencing any vertigo symptoms that would have precipitated vomiting. ECG did show a few premature atrial contractions and a few PVCs but no signs of ischemia. Onset: Today Onset Date: 05/16/19 Onset Time: 15:50 Duration: Minutes: Location: Reports: Generalized (My sense of illness with feeling dizzy lightheaded short of breath and then started to have precipitous nausea and vomiting.) Quality: Reports: Other (Nausea and) Severity: Moderate (lightheadedness leg and near syncope feeling. He was not aware of any palpitations in his chest.) Improves with: Reports: Other (He seemed to be somewhat better after vomiting.) Worsens with: Reports: None Context: Reports: Other (Acute onset while at home.). Denies: Activity, Exercise, Lifting, Sick Contact, Trauma Associated Symptoms: Reports: Loss of Appetite, Malaise, Nausea/Vomiting. 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: Other (see below) (Paramedics did not give him any medication in route to the hospital) - Related Data Allergies Allergy/AdvReac Type Severity Reaction Status Date / Time No Known Allergies Allergy Verified 04/23/19 17:10 Home Meds: Home Meds Aspirin [Keith Aspirin] 81 mg PO DAILY 05/11/14 [History] Fluticasone Propionate [Flovent] 4 puff IH BID 05/11/14 [History] Pantoprazole [ProTONIX Granules] 40 mg PO DAILY 05/11/14 [History] Sulfamethoxazole/Trimethoprim [Bactrim Ds Tablet] 1 tab PO BID 06/08/14 [History ] FLUoxetine [PROzac] 40 mg PO DAILY 05/01/15 [History] Losartan [Cozaar] 25 mg PO DAILY 07/06/15 [History] Metoprolol Succinate [Toprol XL] 25 mg PO DAILY 07/06/15 [History] Nitroglycerin [Nitrostat] 0.4 mg PO Q5M PRN 07/08/16 [History] Rosuvastatin Calcium [Crestor] 40 mg PO DAILY 07/08/16 [History] Albuterol Sulfate 2.5 mg NEB QID PRN 11/09/16 [History] Insulin Glarg,Human.Rec.Analog [LantUS Solostar] 10 units SQ DAILY 01/08/17 [ History] metFORMIN [Glucophage XR] 750 mg PO BEDTIME 01/08/17 [History] riTUXimab [Rituxan] 1,000 mg IV ASDIRECTED 01/08/17 [History] Acetaminophen [Tylenol Extra Strength] 650 mg PO Q8H PRN 04/08/17 [History] Fluticasone Propionate 2 spray JARRED DAILY 04/11/18 [History] Insulin Aspart [NovoLOG] 0 unit INJECT ASDIRECTED 04/11/18 [History] Ticagrelor [Brilinta] 90 mg PO BID 11/07/18 [History] Indomethacin 50 mg PO ASDIRECTED PRN 04/23/19 [History] LORazepam [Ativan] 0.5 mg PO DAILY PRN 04/23/19 [History] Past Medical History HEENT History: Reports: Hard of Hearing, Impaired Vision Other HEENT History: Wears glasses for reading. Cardiovascular History: Reports: CAD, High Cholesterol, Hypertension, [place] Respiratory History: Reports: Other (See Below) Other Respiratory History: GPA; bronchoscopy; scarring of trachea. 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 He was started on experimental therapy with either Rituxan or toxin and he was looking up to receive Rituxan which she has been on ever since with good control of his disease process. Oncologic (Cancer) History: Reports: None Dermatologic History: Reports: None - Infectious Disease History Infectious Disease History: Reports: Chicken Pox, Influenza, Mumps - Past Surgical History HEENT Surgical History: Reports: Oral Surgery, Other (See Below) Other HEENT Surgeries/Procedures: subglottic stenosis laser sx removal at [place] Cardiovascular Surgical History: Reports: Coronary Artery Stent Respiratory Surgical History: Reports: Lung Biopsies, Other (See Below) ( Retired required laser surgery of his trachea because it continually develop scar tissue and closes in. 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 Denies: Wheezing, Pleuritic Chest Pain ( before coming to the ED.), Cough, Sputum Cardiovascular: Reports: Blood Pressure Problem, Lightheadedness. Denies: Chest Pain, Claudication, Dyspnea on Exertion, Edema, Orthopnea (On medicine for blood pressure), Palpitations Endocrine: Reports: No Symptoms GI/Abdominal: Reports: Nausea, Vomiting (Precipitous amount of nausea and vomiting in the ED feeling a emesis bag.). Denies: Diarrhea : Reports: No Symptoms Skin: Reports: Bruising (This is easily as he is on Brilinta) Neurological: Reports: Dizziness (Seen this at home but I cannot get a firm history of vertigo.), Weakness. Denies: Difficulty Walking Psychiatric: Reports: No Symptoms Hematologic/Lymphatic: Reports: No Symptoms Immunologic: Reports: No Symptoms ED EXAM, GENERAL - Physical Exam Exam: See Below Exam Limited By: No Limitations General Appearance: Alert, WD/WN, Severe Distress (Severe distress upon presentation to the ED with precipitous amount of nausea and vomiting filling an emesis bag. He felt somewhat better after that and was able to carry on a normal conversation.), Other (Temperature is 36.8 with a heart rate of 72 respiratory of 20 oxygen upon 100% on room air BP 157/88.) Eye Exam: Bilateral Eye: Normal Inspection, PERRL Ears: Other (Wearing bilateral hearing aids.) Head: Atraumatic, Normocephalic Neck: Normal Inspection, Supple, Non-Tender, Full Range of Motion. No: Carotid Bruit, Lymphadenopathy (L), Lymphadenopathy (R) Respiratory/Chest: Lungs Clear (Mild tachypnea at the time of examination after vomiting.), Normal Breath Sounds, No Accessory Muscle Use, Chest Non-Tender, Respiratory Distress Cardiovascular: Normal Peripheral Pulses, Regular Rate, Rhythm, No Edema, No Gallop, No Murmur, No Rub Peripheral Pulses: 3+: Posterior Tibial (L), Posterior Tibial (R), Dorsalis Pedis (L), Dorsalis Pedis (R) GI/Abdominal: Normal Bowel Sounds, Soft, Non-Tender, No Organomegaly, No Mass, Pelvis Stable (Male) Exam: No Hernia Back Exam: Normal Inspection, Full Range of Motion. No: CVA Tenderness (L), CVA Tenderness (R) Extremities: Normal Inspection, Normal Range of Motion, Non-Tender, No Pedal Edema Neurological: Alert, Oriented, CN II-XII Intact, Normal Cognition Psychiatric: Normal Affect, Normal Mood Skin Exam: Warm, Dry, Intact, Normal Color, No Rash EKG INTERPRETATION EKG Date: 05/16/19 Time: 16:14 Rhythm: NSR Rate (Beats/Min): 74 [place]: Normal P-Wave: Present QRS: Other (Very mild early R wave transition suggestive of septal hypertrophy.) ST-T: Other (Occasional unifocal PVC) QT: Normal EKG Interpretation Comments: Abnormal ECG but no signs of acute ischemia. Course - Vital Signs Last Recorded V/S: Last Vital Signs Temp 36.8 C 05/16/19 16:19 Pulse 72 05/16/19 16:19 Resp 20 05/16/19 16:19 BP 157/88 H 05/16/19 16:19 Pulse Ox 100 05/16/19 16:19 - Orders/Labs/Meds Orders: Active Orders 24 hr Category Date Time Status EKG Documentation Completion [RC] STAT Care 05/16/19 16:22 Active KETONES,BLOOD [CHEM] Stat Lab 05/16/19 17:28 Ordered Sodium Chloride 0.9% [Normal Saline] 1,000 ml Med 05/16/19 17:30 Active IV ASDIRECTED Medication Orders Sodium Chloride (Normal Saline) 1,000 mls @ 999 mls/hr IV ASDIRECTED MICHELE Labs: Laboratory Tests 05/16/19 05/16/19 05/16/19 Range/Units 16:33 16:33 16:33 WBC 6.01 (4.23-9.07) K/mm3 RBC 4.66 (4.63-6.08) M/mm3 Hgb 13.2 L (13.7-17.5) gm/dl Hct 41.6 (40.1-51.0) % MCV 89.3 (79.0-92.2) fl MCH 28.3 (25.7-32.2) pg MCHC 31.7 L (32.2-35.5) g/dl RDW Std Deviation 44.2 H (35.1-43.9) fL Plt Count 208 D (163-337) K/mm3 MPV 10.3 (9.4-12.3) fl Neut % (Auto) 64.8 (34.0-67.9) % Lymph % (Auto) 20.6 L (21.8-53.1) % [place] % (Auto) 12.3 H (5.3-12.2) % Eos % (Auto) 1.8 (0.8-7.0) Baso % (Auto) 0.2 (0.1-1.2) % Neut # (Auto) 3.89 (1.78-5.38) K/mm3 Lymph # (Auto) 1.24 L (1.32-3.57) K/mm3 [place] # (Auto) 0.74 (0.30-0.82) K/mm3 Eos # (Auto) 0.11 (0.04-0.54) K/mm3 Baso # (Auto) 0.01 (0.01-0.08) K/mm3 PT 11.0 (9.7-12.0) SECONDS INR 1.01 APTT 25 (22-31) SECONDS Sodium 141 (136-145) mEq/L Potassium 3.6 (3.5-5.1) mEq/L Chloride 103 (98-107) mEq/L Carbon Dioxide 23 (21-32) mEq/L Anion Gap 18.6 H (5-15) BUN 21 H (7-18) mg/dL Creatinine 1.3 (0.7-1.3) mg/dL Est Cr Clr Drug Dosing 63.17 mL/min Estimated GFR (MDRD) 57 (>60) mL/min BUN/Creatinine Ratio 16.2 (14-18) Glucose 135 H (74-106) mg/dL Lactic Acid (0.4-2.0) mmol/L Calcium 9.1 (8.5-10.1) mg/dL Magnesium 1.8 (1.8-2.4) mg/dl Total Bilirubin 0.4 (0.2-1.0) mg/dL AST 17 (15-37) U/L ALT 22 (16-63) U/L Alkaline Phosphatase 92 (46-116) U/L CK-MB (CK-2) 2.1 (0-3.6) ng/ml Troponin I < 0.017 (0.00-0.056) ng/mL C-Reactive Protein 0.7 (<1.0) mg/dL NT-Pro-B Natriuret Pep (0-125) pg/mL Total Protein 6.8 (6.4-8.2) g/dl Albumin 4.0 (3.4-5.0) g/dl Globulin 2.8 gm/dL Albumin/Globulin Ratio 1.4 (1-2) 05/16/19 05/16/19 Range/Units 16:33 18:05 WBC (4.23-9.07) K/mm3 RBC (4.63-6.08) M/mm3 Hgb (13.7-17.5) gm/dl Hct (40.1-51.0) % MCV (79.0-92.2) fl MCH (25.7-32.2) pg MCHC (32.2-35.5) g/dl RDW Std Deviation (35.1-43.9) fL Plt Count (163-337) K/mm3 MPV (9.4-12.3) fl Neut % (Auto) (34.0-67.9) % Lymph % (Auto) (21.8-53.1) % [place] % (Auto) (5.3-12.2) % Eos % (Auto) (0.8-7.0) Baso % (Auto) (0.1-1.2) % Neut # (Auto) (1.78-5.38) K/mm3 Lymph # (Auto) (1.32-3.57) K/mm3 [place] # (Auto) (0.30-0.82) K/mm3 Eos # (Auto) (0.04-0.54) K/mm3 Baso # (Auto) (0.01-0.08) K/mm3 PT (9.7-12.0) SECONDS INR APTT (22-31) SECONDS Sodium (136-145) mEq/L Potassium (3.5-5.1) mEq/L Chloride (98-107) mEq/L Carbon Dioxide (21-32) mEq/L Anion Gap (5-15) BUN (7-18) mg/dL Creatinine (0.7-1.3) mg/dL Est Cr Clr Drug Dosing mL/min Estimated GFR (MDRD) (>60) mL/min BUN/Creatinine Ratio (14-18) Glucose (74-106) mg/dL Lactic Acid 1.4 (0.4-2.0) mmol/L Calcium (8.5-10.1) mg/dL Magnesium (1.8-2.4) mg/dl Total Bilirubin (0.2-1.0) mg/dL AST (15-37) U/L ALT (16-63) U/L Alkaline Phosphatase (46-116) U/L CK-MB (CK-2) (0-3.6) ng/ml Troponin I (0.00-0.056) ng/mL C-Reactive Protein (<1.0) mg/dL NT-Pro-B Natriuret Pep 149 H (0-125) pg/mL Total Protein (6.4-8.2) g/dl Albumin (3.4-5.0) g/dl Globulin gm/dL Albumin/Globulin Ratio (1-2) Meds: Medications Generic Name Dose Route Start Last Admin Trade Name Freq PRN Reason Stop Dose Admin Sodium Chloride 1,000 mls @ 999 mls/hr 05/16/19 17:30 Normal Saline IV ASDIRECTED MICHELE Discontinued Medications Generic Name Dose Route Start Last Admin Trade Name Freq PRN Reason Stop Dose Admin Sodium Chloride 1,000 mls @ 150 mls/hr 05/16/19 16:30 05/16/19 17:43 Normal Saline IV 999 mls/hr ASDIRECTED MICHELE Infusion Metoclopramide HCl 10 mg 05/16/19 16:15 05/16/19 16:41 Reglan IVPUSH 05/16/19 16:16 10 mg ONETIME ONE Administration - Radiology Interpretation Free Text/Narrative:: 59-year-old male presents to the ED stating that he suddenly began to feel unwell at home about 20 minutes before arrival in the ED with dizziness, lightheadedness, near syncopal feeling and associated mild nausea and perhaps mildly short of breath. There is some suggestion that he may be experiencing arrhythmia such as paroxysmal atrial fibrillation. He denies having any chest pain. Upon arrival in the ED he had precipitous amount of vomiting and filled an emesis bag completely. After this he seemed to feel better. His ECG shows the occasional premature atrial contraction and occasional PVC but no signs of ischemia. He has known coronary disease with [address] 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 Examination was completely normal. Plan routine labs to be commenced and a chest x-ray. He received Reglan 10 mg IV to arrest the vomiting - Re-Assessments/Exams Free Text/Narrative Re-Assessment/Exam: 05/16/19 17:26 His was able to do ECG on her cell phone on her when he was complaining of feeling dizzy and lightheaded. The ECG done on the cell phone shows that he was in atrial fibrillation with a heart rate as high as 150/min. There was also numerous premature atrial contractions and PVCs. Forward is likely that he is experiencing arrhythmias causing his dizziness and feeling like he is going to faint. 05/16/19 17:28 Labs revealed normal hematology with a white count of 6.01. Auto differential is 65% neutrophils and 21% lymphocytes hemoglobin is 13.2 with hematocrit of 41.6. Platelet count is 208,000. PT is 11.0 with an INR of 1.01 PTT was 25. Sodium is 141 with a potassium of 3.6 chloride 103 with a bicarb of 23. Anion gap is elevated at 18.6. BUN is 21 with a creatinine of 1.3. GFR is 57 glucose 135 calcium 9.1 magnesium low normal 1.8 liver function normal CK-MB 2.1 troponin I less than 0.017 C-reactive protein 0.7 total protein 6.8 with an albumin fraction. Patient has a metabolic acidosis of unclear etiology. It is possible that he is a lactic acidosis from his metformin. I will therefore have the lab come and check his lactic acid level and serum ketones were ordered. Chest x-ray reveals minimal left basilar atelectasis but otherwise normal chest x-ray. 05/16/19 18:41 lactic acid is 1.4. BNP is minimally minimally elevated at 144. Normal is 125. Ketones are still not available. However they they are most likely the cause of his metabolic acidosis as his lactic acid is in the normal range. Plan I am going to have a Holter monitor placed for the next 48 hours to see if he can pin down what arrhythmia he might be having as there is some concerns on the iPhone that his traced was that of paroxysmal atrial fibrillation. His anion gap is high enough that it could have caused some nausea and vomiting and made him feel flu-rich as well. I advised him that he needs to watch his diet a little bit better and take more carbohydrates in any has been to prevent ketones from forming. Follow-up with his personal doctor later this week about for the report of his Holter monitor. It is important as if he is having paroxysmal atrial fib he would need to be on a anticoagulant. Departure - Departure Time of Disposition: 19:07 Disposition: Home, Self-Care 01 Condition: Fair Clinical Impression: Nausea and vomiting in adult, Metabolic acidosis due to diabetes mellitus Referrals: PCP,Unknown [Ordering Only Provider] - Forms: ED Department Discharge Additional Instructions: Evaluation in the emergency room today in regards to sudden onset of feeling ill with dizziness, shortness of breath and nausea. iPhone at home suggested that your heart was skipping beats and on the portion that I looked at it suggested that this was likely underlying atrial fibrillation with a rate as high as 150/min. This would cause dizziness and lightheadedness and sip at a nausea and vomiting. However you never had any associated chest pain development and your ECG here was completely normal. Similarly lab testing of your heart enzymes was completely normal. The only thing that we found was that there was a buildup of ketones in your bloodstream causing will be called metabolic acidosis. Your anion gap was 18.6 which is high enough to perhaps cause flulike symptoms with nausea dizziness and lightheadedness. Therefore at this point time it is impossible to tell whether the buildup of ketones in your blood caused her symptom complex today or you actually had an irregular heartbeat causing the problems. Suggest that we use a Holter monitor to monitor your heartbeat for the next 2 days and then have it assessed. It the results should be available to your personal doctor about or Saturday this coming week. Please make an appointment to follow-up in this regard. Depending of what kind of rhythm shows up you may need further medication to treat this condition. Treat the ketosis today you need to take your insulin and have a regular meal that contains carbohydrates. Sepsis Event Note - Focused Exam Vital Signs: Vital Signs Temp Pulse Resp BP Pulse Ox 05/16/19 16:19 36.8 C 72 20 157/88 H 100 Date Exam was Performed: 05/16/19 Time Exam was Performed: 18:52 - My Orders Last 24 Hours: My Active Orders 05/16/19 16:22 EKG Documentation Completion [RC] STAT 05/16/19 17:28 KETONES,BLOOD [CHEM] Stat 05/16/19 17:30 Sodium Chloride 0.9% [Normal Saline] 1,000 ml IV ASDIRECTED - Assessment/Plan Last 24 Hours: My Active Orders 05/16/19 16:22 EKG Documentation Completion [RC] STAT 05/16/19 17:28 KETONES,BLOOD [CHEM] Stat 05/16/19 17:30 Sodium Chloride 0.9% [Normal Saline] 1,000 ml IV ASDIRECTED
[2019-05-16] MEDS ORDERED: Sodium Chloride 0.9% 1,000 ML IV SCH ×2 (16:30→17:30)
--- NOTE | 2019-05-16 17:30 | CR ---
Chest: Portable view of the chest was obtained. Comparison: Prior chest x-ray of 04/23/19. Heart size and mediastinum are normal. Minimal parenchymal density is noted off the left cardiac apex believed to represent minimal atelectasis. Lungs otherwise are clear with no acute parenchymal change. Bony structures appear within normal limits for the patient's age. Impression: 1. Minimal left basilar atelectasis. 2. Nothing acute is appreciated on portable chest x-ray. Diagnostic code #2 This report was dictated in [place] Standard Time
[2019-05-16 19:43] VITALS: BP 127/71; PULSE 59
== END 2019-05-16 19:41 | disposition home or self-care (01) ==
LOC: JD.ED 16:13
DX: E11.10 Type 2 diabetes mellitus with ketoacidosis without coma (principal); R11.2 Nausea with vomiting, unspecified; I10 Essential (primary) hypertension; I25.10 Atherosclerotic heart disease of native coronary artery without angina pectoris; E78.00 Pure hypercholesterolemia, unspecified; I25.2 Old myocardial infarction; K21.9 Gastro-esophageal reflux disease without esophagitis; F41.9 Anxiety disorder, unspecified; F32.9 Major depressive disorder, single episode, unspecified; E66.9 Obesity, unspecified; Z86.73 Personal history of transient ischemic attack (TIA), and cerebral infarction without residual deficits; Z79.899 Other long term (current) drug therapy; Z79.4 Long term (current) use of insulin
CPT/HCPCS: 36415; 71045; 80053; 82009; 82553; 83605; 83735; 83880; 84484; 85025; 85610; 85730; 86140; 93005; 93225; 93226; 96361; 96374; 99285; J2765; J7030; 93010

== ENCOUNTER 2019-09-23 09:11 | Emergency (ER) | payer OTHER ==
[2019-09-23 09:20] VITALS: BP 130/67; PULSE 61
--- NOTE | 2019-09-23 09:46 | EDM.PDOC ---
ED HPI GENERAL MEDICAL PROBLEM - General Chief Complaint: Respiratory Problem Stated Complaint: LOW O2 Time Seen by Provider: 09/23/19 09:40 Source of Information: Reports: Patient, Family () History Limitations: Reports: No Limitations - History of Present Illness INITIAL COMMENTS - FREE TEXT/NARRATIVE: 59-year-old male presents to the ED for evaluation of dyspnea and shortness of breath more noticeable going up a flight of stairs and walking etc. This is more appreciated by his and himself. Patient has a diagnosis of Yancy's granulomatosis diagnosed in 2004. He is cared for primarily through the [facility]. He receives Rituxan about every 9 months. His next dose is due October 06. Lab work is ordered through the [facility] and Shanna Borrego is his primary care provider. He denies any fever or chills. He denies cough or sputum production. Appetite is good and no trouble swallowing. He has no nasal congestion. They checked his pulse oximetry recording at home this morning and got 80. Here he is 97% however. It appears the battery is likely to be replaced in the home pulse oximeter. At this time no one else at home is ill. He has been very careful to avoid going out much because of the COVID-19 virus. Onset: Other (Has Yancy's granulomatosis since 2004.) Onset Date: 09/23/19 ([place] more short of breath with mild nausea this morning and his pulse oximeter reading did not help at home as it read 80%.) Location: Reports: Chest (Subjective dyspnea.) Quality: Reports: Other Severity: Mild (Dyspnea) Improves with: Reports: None Worsens with: Reports: None Context: Denies: Activity, Exercise, Sick Contact, Trauma, Other Associated Symptoms: Reports: Nausea/Vomiting Treatments VASCULAR NURSE: Reports: Other (see below) (1.) - Related Data Allergies Allergy/AdvReac Type Severity Reaction Status Date / Time No Known Allergies Allergy Verified 04/23/19 17:10 Home Meds: Home Meds Aspirin [[place] Aspirin] 81 mg PO DAILY 05/11/14 [History] Fluticasone Propionate [Flovent] 4 puff IH BID 05/11/14 [History] Pantoprazole [ProTONIX Granules] 40 mg PO DAILY 05/11/14 [History] Sulfamethoxazole/Trimethoprim [Bactrim Ds Tablet] 1 tab PO BID 06/08/14 [History] FLUoxetine [PROzac] 40 mg PO DAILY 05/01/15 [History] Losartan [Cozaar] 25 mg PO DAILY 07/06/15 [History] Metoprolol Succinate [Toprol XL] 25 mg PO DAILY 07/06/15 [History] Nitroglycerin [Nitrostat] 0.4 mg PO Q5M PRN 07/08/16 [History] Rosuvastatin Calcium [Crestor] 40 mg PO DAILY 07/08/16 [History] Albuterol Sulfate 2.5 mg NEB QID PRN 11/09/16 [History] Insulin Glarg,Human.Rec.Analog [LantUS Solostar] 10 units SQ DAILY 01/08/17 [History] metFORMIN [Glucophage XR] 750 mg PO BEDTIME 01/08/17 [History] riTUXimab [Rituxan] 1,000 mg IV ASDIRECTED 01/08/17 [History] Acetaminophen [Tylenol Extra Strength] 650 mg PO Q8H PRN 04/08/17 [History] Fluticasone Propionate 2 spray JARRED DAILY 04/11/18 [History] Insulin Aspart [NovoLOG] 0 unit INJECT ASDIRECTED 04/11/18 [History] Ticagrelor [Brilinta] 90 mg PO BID 11/07/18 [History] Indomethacin 50 mg PO ASDIRECTED PRN 04/23/19 [History] LORazepam [Ativan] 0.5 mg PO DAILY PRN 04/23/19 [History] Ondansetron [Zofran] 4 mg BUCCAL Q6H PRN #10 tab 09/23/19 [Rx] Past Medical History HEENT History: Reports: Hard of Hearing, Impaired Vision Other HEENT History: Wears glasses for reading. Cardiovascular History: Reports: CAD, High Cholesterol, Hypertension, PR Respiratory History: Reports: Other (See Below) Other Respiratory History: GPA; bronchoscopy; scarring of trachea. She has Yancy's granulomatosis diagnosed in 2004. Initially treated with cyclophosphamide and is being worked up through the [facility]. He is currently been on Rituxan for the last 8 years and done very well. 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 He was started on experimental therapy with either Rituxan or toxin and he was looking up to receive Rituxan which she has been on ever since with good control of his disease process. Oncologic (Cancer) History: Reports: None Dermatologic History: Reports: None - Infectious Disease History Infectious Disease History: Reports: Chicken Pox, Influenza, Mumps - Past Surgical History HEENT Surgical History: Reports: Oral Surgery, Other (See Below) Other HEENT Surgeries/Procedures: subglottic stenosis laser sx removal at [place] Cardiovascular Surgical History: Reports: Coronary Artery Stent Respiratory Surgical History: Reports: Lung Biopsies, Other (See Below) GI Surgical History: Reports: Colonoscopy Musculoskeletal Surgical History: Reports: Other (See Below) Other Musculoskeletal Surgeries/Procedures:: ACL replaced Social & Family History - Family History Family Medical History: Noncontributory - Tobacco Use Smoking Status *Q: Never Smoker - Caffeine Use Caffeine Use: Reports: Soda - Living Situation & Occupation Living situation: Reports: , with Spouse 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 Denies: Fever, Chills, Weight Loss HEENT: Reports: Other (Denies nasal congestion or any bleeding from the naris.) Respiratory: Reports: Shortness of Breath. Denies: Wheezing, Pleuritic Chest Pain, Cough, Sputum, Hemoptysis, Other Cardiovascular: Reports: Blood Pressure Problem. Denies: No Symptoms, Chest Pain Endocrine: Reports: Fatigue GI/Abdominal: Reports: No Symptoms : Reports: No Symptoms Musculoskeletal: Reports: No Symptoms Skin: Reports: No Symptoms Neurological: Reports: No Symptoms Psychiatric: Reports: No Symptoms Hematologic/Lymphatic: Reports: No Symptoms ED EXAM, GENERAL - Physical Exam Exam: See Below Exam Limited By: No Limitations General Appearance: Alert, WD/WN, No Apparent Distress, Other (Temperature is 36.3. Pulse ox is 100% on room air. Heart rate was 61 with a respiratory rate of 16 and BP 130/67) Eye Exam: Bilateral Eye: Normal Inspection, PERRL Throat/Mouth: Normal Inspection, Normal Lips, Normal Teeth, Normal Oropharynx Head: Atraumatic, Normocephalic Neck: Normal Inspection, Supple, Non-Tender, Full Range of Motion. No: Carotid Bruit, Limited Range of Motion, Lymphadenopathy (L), Lymphadenopathy (R) Respiratory/Chest: No Respiratory Distress, Lungs Clear, Normal Breath Sounds, No Accessory Muscle Use. No: Crackles, Rales, Rhonchi, Wheezing Cardiovascular: Normal Peripheral Pulses, Regular Rate, Rhythm, No Edema, No Gallop, No Murmur, No Rub Peripheral Pulses: 2+: Carotid (L), Carotid (R), Posterior Tibial (L), Posterior Tibial (R), Dorsalis Pedis (L), Dorsalis Pedis (R) GI/Abdominal: Normal Bowel Sounds, Soft, Non-Tender, No Organomegaly, No Mass, Pelvis Stable Back Exam: Normal Inspection, Full Range of Motion Extremities: Normal Inspection, Normal Range of Motion, Non-Tender, No Pedal Edema, Normal Capillary Refill Neurological: Alert, Oriented, Normal Cognition Psychiatric: Normal Affect, Normal Mood Skin Exam: Warm, Dry, Intact, Normal Color, No Rash Course - Vital Signs Last Recorded V/S: Last Vital Signs Temp 36.3 C 09/23/19 09:17 Pulse 61 09/23/19 09:17 Resp 16 09/23/19 09:17 BP 130/67 09/23/19 09:17 Pulse Ox 100 09/23/19 09:17 - Orders/Labs/Meds Meds: Medications Discontinued Medications Generic Name Dose Route Start Last Admin Trade Name Vanessa PRN Reason Stop Dose Admin Ondansetron HCl 4 mg 09/23/19 09:48 09/23/19 09:53 Zofran Odt PO 09/23/19 09:49 4 mg ONETIME ONE Administration - Radiology Interpretation Free Text/Narrative:: 59-year-old male with known Yancy's granulomatosis diagnosed in 2004 and is followed through the [facility]. He this morning did not feel well upon awake kiera felt slightly nauseated and did not eat any breakfast. His appreciates that he seems to be more dyspneic on minimal exertion such as going up a flight of stairs although patient does not necessarily keep into this feeling of dyspnea. He denies cough or sputum production. No fever chills or night sweats. No nosebleeds no hemoptysis. He is due for his Rituxan therapy which she receives intravenously every 9 months. This is due October 06. Morning his pulse oximeter read 80% which precipitated coming to the ED. Here his O2 sats are 97 to 100%. Examination reveals clear lung co[place] without any adventitial sounds. Ear nose and throat exam is also normal. [place] Zofran 4 mg sublingual. 1 view chest x-ray to be done. - Re-Assessments/Exams Free Text/Narrative Re-Assessment/Exam: 09/23/19 10:1O 1 view chest x-ray is within normal limits. Is certainly unchanged from previous chest x-ray. Patient and were reassured. He would like a prescription for Zofran sublingual to be taken home and used as needed. I will therefore write 1 for this. Departure - Departure Time of Disposition: 10:16 Disposition: Home, Self-Care 01 Condition: Fair Clinical Impression: Nausea Dyspnea Qualifiers: Dyspnea type: unspecified Qualified Code(s): R06.00 - Dyspnea, unspecified - Discharge Information *PRESCRIPTION DRUG MONITORING PROGRAM REVIEWED*: Not Applicable *COPY OF PRESCRIPTION DRUG MONITORING REPORT IN PATIENT CHANCE: Not Applicable Prescriptions: Ondansetron [Zofran] 4 mg BUCCAL Q6H PRN #10 tab PRN Reason: nausea or vomiting Referrals: Shanna Borrego, FILM LIBRARIAN [Primary Care Provider] - Forms: ED Department Discharge Additional Instructions: Evaluation in the emergency room this morning due to generally not feeling well upon awakening. Mild nausea and concern for possible shortness of breath and dyspnea. Pulse oximetry reading at home this morning was low at 89%. History of Yancy's granulomatosis which has been relatively well controlled with Rituxan every 9 months. Examination reveals no fever or chills. O2 sats in the emergency department were 97 to 100%. Lungs were clear to auscultation percussion. Chest x-ray is normal as well. Nausea treated with Zofran 4 mg under the tongue in the ED. This point time I see no need to provide further investigations. However if dyspnea seems to be worsening then a COVID-19 test needs to be obtained. Labs as well. I did write a prescription for the Zofran 4 mg under the tongue which may be used 1 every 6 hours necessary for relief of nausea or vomiting. Sepsis Event Note (ED) - Evaluation Sepsis Screening Result: No Definite Risk - Focused Exam Vital Signs: Vital Signs Temp Pulse Resp BP Pulse Ox 09/23/19 09:17 36.3 C 61 16 130/67 100
[2019-09-23] MEDS ORDERED: Ondansetron 4 MG Tab.DIS PO ONE (09:48)
--- NOTE | 2019-09-23 10:11 | CR ---
Chest: Portable view of the chest was obtained. Comparison: Prior chest x-ray of 05/16/19. Heart size and mediastinum are normal. Lungs shows slight scarring within the left base. Lungs otherwise are clear. Bony structures shows endplate spurring within the spine with mild scattered disc space narrowing. Impression: 1. Findings as noted above. 2. Nothing acute is appreciated. Diagnostic code #2 This report was dictated in MDT
== END 2019-09-23 10:20 | disposition home or self-care (01) ==
LOC: JD.ED 09:11
DX: R06.00 Dyspnea, unspecified (principal); R11.0 Nausea; I10 Essential (primary) hypertension; E78.00 Pure hypercholesterolemia, unspecified; I25.2 Old myocardial infarction; I25.10 Atherosclerotic heart disease of native coronary artery without angina pectoris; K21.9 Gastro-esophageal reflux disease without esophagitis; E11.9 Type 2 diabetes mellitus without complications; F41.9 Anxiety disorder, unspecified; F32.9 Major depressive disorder, single episode, unspecified; E66.9 Obesity, unspecified; Z86.73 Personal history of transient ischemic attack (TIA), and cerebral infarction without residual deficits; Z79.4 Long term (current) use of insulin; Z79.82 Long term (current) use of aspirin; Z79.899 Other long term (current) drug therapy; Z68.32 Body mass index [BMI] 32.0-32.9, adult
CPT/HCPCS: 71045; 99284; A9270; 99283

== ENCOUNTER 2020-08-25 14:46 | Emergency (ER) | payer OTHER ==
[2020-08-25 15:13] VITALS: BP 138/71; PULSE 66
--- NOTE | 2020-08-25 16:45 | EDM.PDOC ---
ED HPI GENERAL MEDICAL PROBLEM - General Chief Complaint: Lower Extremity Injury/Pain Stated Complaint: MULTIPLE ISSUES Time Seen by Provider: 08/25/20 15:04 Source of Information: Reports: Patient, RN Notes Reviewed History Limitations: Reports: No Limitations - History of Present Illness INITIAL COMMENTS - FREE TEXT/NARRATIVE: Patient is a 60-year-old male presenting to the emergency department with complaints of right thigh pain which has been occurring for the last 5 to 6 weeks. Concern increased today when he had an episode of chills and "flushing "while at [facility]. He reports that he did not have any chest pain or shortness of breath associated with this episode. He did see his primary care provider 2 days ago and had x-rays ordered of his right femur which showed no abnormalities. He has been referred to physical therapy. He reports that the area is most painful when he is bending forward. He reports that he will get a sharp pain in the area and then developed tingling shortly after numbness. If he gets up and moves around the pain does improve. He took an oxycodone this morning with little relief. Denies any fever or chills. He does have a history of UT and states with his first UT he did not have chest pain. He is awaiting a call back from [facility] to set up point with physical therapy, however they feel that they are at the point where he needs a referral to an orthopedist. Right Upper Leg Pain Score (Numeric/FACES): 7 - Related Data Allergies Allergy/AdvReac Type Severity Reaction Status Date / Time No Known Allergies Allergy Verified 08/25/20 15:05 Home Meds: Home Meds Aspirin [[place] Aspirin] 81 mg PO DAILY 05/11/14 [History] Fluticasone Propionate [Flovent] 4 puff IH BID 05/11/14 [History] Pantoprazole [ProTONIX Granules] 40 mg PO DAILY 05/11/14 [History] Sulfamethoxazole/Trimethoprim [Bactrim Ds Tablet] 1 tab PO BID 06/08/14 [History] FLUoxetine [PROzac] 40 mg PO DAILY 05/01/15 [History] Losartan [Cozaar] 25 mg PO DAILY 07/06/15 [History] Metoprolol Succinate [Toprol XL] 25 mg PO DAILY 07/06/15 [History] Nitroglycerin [Nitrostat] 0.4 mg PO Q5M PRN 07/08/16 [History] Rosuvastatin Calcium [Crestor] 40 mg PO DAILY 07/08/16 [History] Albuterol Sulfate 2.5 mg NEB QID PRN 11/09/16 [History] Insulin Glarg,Human.Rec.Analog [LantUS Solostar] 10 units SQ DAILY 01/08/17 [History] metFORMIN [Glucophage XR] 750 mg PO BEDTIME 01/08/17 [History] riTUXimab [Rituxan] 1,000 mg IV ASDIRECTED 01/08/17 [History] Acetaminophen [Tylenol Extra Strength] 650 mg PO Q8H PRN 04/08/17 [History] Fluticasone Propionate 2 spray JARRED DAILY 04/11/18 [History] Insulin Aspart [NovoLOG] 0 unit INJECT ASDIRECTED 04/11/18 [History] Ticagrelor [Brilinta] 90 mg PO BID 11/07/18 [History] Indomethacin 50 mg PO ASDIRECTED PRN 04/23/19 [History] LORazepam [Ativan] 0.5 mg PO DAILY PRN 04/23/19 [History] Ondansetron [Zofran] 4 mg BUCCAL Q6H PRN #10 tab 09/23/19 [Rx] Past Medical History HEENT History: Reports: Hard of Hearing, Impaired Vision Other HEENT History: Wears glasses for reading. Cardiovascular History: Reports: CAD, High Cholesterol, Hypertension, UT Respiratory History: Reports: Other (See Below) Other Respiratory History: GPA; bronchoscopy; scarring of trachea. She has Yancy's granulomatosis diagnosed in 2004. Initially treated with cyclophosphamide and is being worked up through the [facility]. He is currently been on Rituxan for the last 8 years and done very well. 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 He was started on experimental therapy with either Rituxan or toxin and he was looking up to receive Rituxan which she has been on ever since with good control of his disease process. Oncologic (Cancer) History: Reports: None Dermatologic History: Reports: None - Infectious Disease History Infectious Disease History: Reports: Chicken Pox, Influenza, Mumps - Past Surgical History HEENT Surgical History: Reports: Oral Surgery, Other (See Below) Other HEENT Surgeries/Procedures: subglottic stenosis laser sx removal at [place] Cardiovascular Surgical History: Reports: Coronary Artery Stent Other Cardiovascular Surgeries/Procedures: 2 stents Respiratory Surgical History: Reports: Lung Biopsies, Other (See Below) Other Respiratory Surgeries/Procedures: bronchoscopy GI Surgical History: Reports: Colonoscopy Musculoskeletal Surgical History: Reports: Other (See Below) Other Musculoskeletal Surgeries/Procedures:: ACL replaced Social & Family History - Family History Family Medical History: No Pertinent Family History - Tobacco Use Tobacco Use Status *Q: Never Tobacco User - Caffeine Use Caffeine Use: Reports: Soda - Recreational Drug Use Recreational Drug Use: No - Living Situation & Occupation Living situation: Reports: , with Spouse 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 Denies: Fever, Weakness Eyes: Reports: No Symptoms Ears: Reports: No Symptoms Nose: Reports: No Symptoms Mouth/Throat: Reports: No Symptoms Respiratory: Reports: No Symptoms. Denies: Shortness of Breath, Pleuritic Chest Pain, Cough Cardiovascular: Reports: No Symptoms. Denies: Chest Pain, Lightheadedness, Palpitations GI/Abdominal: Reports: No Symptoms Genitourinary: Reports: No Symptoms Musculoskeletal: Reports: Leg Pain Skin: Reports: No Symptoms Neurological: Reports: Paresthesia (Intermittent to left leg) Psychiatric: Reports: No Symptoms ED EXAM, GENERAL - Physical Exam Exam: See Below Exam Limited By: No Limitations General Appearance: Alert, WD/WN, No Apparent Distress Respiratory/Chest: No Respiratory Distress, Lungs Clear, Normal Breath Sounds, No Accessory Muscle Use, Chest Non-Tender Cardiovascular: Normal Peripheral Pulses, Regular Rate, Rhythm, No Edema, No Gallop, No JVD, No Murmur, No Rub Extremities: Normal Inspection, Normal Range of Motion, Non-Tender, No Pedal Edema, Normal Capillary Refill, Other (Pedal pulses 2+ on left. No tenderness to palpation or with leg raise.) Neurological: Alert, Oriented, CN II-XII Intact, Normal Cognition, Normal Gait, Normal Reflexes, No Motor/Sensory Deficits Psychiatric: Normal Affect, Normal Mood Skin Exam: Warm, Dry, Intact, Normal Color, No Rash Course - Vital Signs Last Recorded V/S: Last Vital Signs Temp 97.2 F 08/25/20 15:11 Pulse 66 08/25/20 15:11 Resp 18 08/25/20 15:11 BP 138/71 08/25/20 15:11 Pulse Ox 98 08/25/20 15:11 - Orders/Labs/Meds Labs: Laboratory Tests 08/25/20 08/25/20 08/25/20 Range/Units 16:06 16:06 16:06 WBC 7.48 (4.23-9.07) K/mm3 RBC 4.60 L (4.63-6.08) M/mm3 Hgb 13.1 L (13.7-17.5) gm/dl Hct 40.7 (40.1-51.0) % MCV 88.5 (79.0-92.2) fl MCH 28.5 (25.7-32.2) pg MCHC 32.2 (32.2-35.5) g/dl RDW Std Deviation 44.5 H (35.1-43.9) fL Plt Count 243 (163-337) K/mm3 MPV 9.6 (9.4-12.3) fl Neut % (Auto) 86.7 H (34.0-67.9) % Lymph % (Auto) 7.4 L (21.8-53.1) % Parker % (Auto) 5.7 (5.3-12.2) % Eos % (Auto) 0 L (0.8-7.0) Baso % (Auto) 0.1 (0.1-1.2) % Neut # (Auto) 6.48 H (1.78-5.38) K/mm3 Lymph # (Auto) 0.55 L (1.32-3.57) K/mm3 Parker # (Auto) 0.43 (0.30-0.82) K/mm3 Eos # (Auto) 0.00 L (0.04-0.54) K/mm3 Baso # (Auto) 0.01 (0.01-0.08) K/mm3 Manual Slide Review Abnormal smear D-Dimer, Quantitative 0.20 (0.19-0.50) mg/L Sodium 142 (136-145) mEq/L Potassium 4.4 (3.5-5.1) mEq/L Chloride 106 (98-107) mEq/L Carbon Dioxide 24 (21-32) mEq/L Anion Gap 16.4 H (5-15) BUN 15 (7-18) mg/dL Creatinine 1.5 H (0.7-1.3) mg/dL Est Cr Clr Drug Dosing 55.78 mL/min Estimated GFR (MDRD) 48 (>60) mL/min BUN/Creatinine Ratio 10.0 L (14-18) Glucose 271 H (70-99) mg/dL Calcium 8.9 (8.5-10.1) mg/dL Total Bilirubin 0.3 (0.2-1.0) mg/dL AST 15 (15-37) U/L ALT 21 (16-63) U/L Alkaline Phosphatase 84 (46-116) U/L Troponin I < 0.017 (0.00-0.056) ng/mL C-Reactive Protein <0.2 (<1.0) mg/dL Total Protein 6.5 (6.4-8.2) g/dl Albumin 3.7 (3.4-5.0) g/dl Globulin 2.8 gm/dL Albumin/Globulin Ratio 1.3 (1-2) - Re-Assessments/Exams Free Text/Narrative Re-Assessment/Exam: Patient is a 60-year-old male presenting to the emergency department with complaints of a 4 to 5-week history of intermittent pain in his left thigh. He reports that today he also had an episode of flushing and chills as well as intermittent cold sweats. He has had no chest pain or shortness of breath. He has seen his primary care provider and a referral has been sent to physical therapy which they are waiting a callback form. They are most concerned with his episode of flushing and chills today. He does have a history of UT. Exam is grossly unremarkable. He has no tenderness to palpation of the left thigh. He has no pain with the knee bent leg raise. I will order cardiac work-up as well as a D-dimer to rule out blood clot, however he is on blood thinner so this is unlikely. 08/25/20 17:38 Hematology significant for hemoglobin 13.1, and a gap 16.4, creatinine 1.5, glucose 271. D-dimer and troponin are normal. Chest x-ray shows no acute abnormalities. EKG shows no evidence of acute ischemia. Patient reports that they are not able to get a physical therapy until 05 September. They would like a referral to orthopedics. I will send a referral to Dr. Barnard. Recommend they also contact primary care tomorrow to discuss other physical therapy providers. Patient does have some gabapentin left at home from when he had shingles. Discussed that he could try using 300 mg twice a day as if this is nerve pain this should help. Discharge instructions as documented. 08/30/20 11:57 Departure - Departure Time of Disposition: 17:38 Disposition: Home, Self-Care 01 Condition: Good Clinical Impression: Leg pain Qualifiers: Laterality: left Qualified Code(s): M79.605 - Pain in left leg - Discharge Information *PRESCRIPTION DRUG MONITORING PROGRAM REVIEWED*: No *COPY OF PRESCRIPTION DRUG MONITORING REPORT IN PATIENT CHANCE: No Instructions: Neuropathic Pain Referrals: Shanna Borrego NP [Primary Care Provider] - Kelby Barnard MD [Physician] - Forms: ED Department Discharge Additional Instructions: You were seen in the emergency department today for a 5 to 6-week history of left leg pain as well as an episode of flushing and chills today. Work-up included blood work, chest x-ray and EKG. Results of your work-up were found to be normal. You do not have a blood clot and you are not having a heart attack. As we discussed, you may try using gabapentin 300 mg twice daily. If this is nerve pain, this should help. Recommend contacting her primary care provider tomorrow to discuss alternative physical therapists as [facility] does not able to see you until 05 September. Referral has also been sent to orthopedist, Dr. Barnard. You may contact his office tomorrow to set up an appointment. Return to ER for any new or worsening symptoms. Sepsis Event Note (ED) - Evaluation Sepsis Screening Result: No Definite Risk
--- NOTE | 2020-08-25 19:56 | CR ---
Chest: 2 views of the chest were obtained. Comparison: Prior chest x-ray of 05/16/19. Heart size and mediastinum are normal. Lungs are clear with no acute parenchymal change. Mild scattered disc space narrowing within the spine is seen with scattered endplate osteophytes. Impression: 1. Nothing acute is seen on 2 view chest x-ray. 2. Other stable findings as noted above. Diagnostic code #2
== END 2020-08-25 17:47 | disposition home or self-care (01) ==
LOC: JD.ED 14:46
DX: M79.605 Pain in left leg (principal); I25.10 Atherosclerotic heart disease of native coronary artery without angina pectoris; E78.00 Pure hypercholesterolemia, unspecified; I10 Essential (primary) hypertension; I25.2 Old myocardial infarction; E11.9 Type 2 diabetes mellitus without complications; Z87.2 Personal history of diseases of the skin and subcutaneous tissue; Z79.82 Long term (current) use of aspirin; Z79.4 Long term (current) use of insulin; Z79.899 Other long term (current) drug therapy; Z79.02 Long term (current) use of antithrombotics/antiplatelets
CPT/HCPCS: 36415; 71046; 71046-26; 80053; 84484; 85025; 85379; 86140; 93005; 99283; 99284-25

== ENCOUNTER 2021-02-01 20:29 | Emergency (ER) | payer OTHER ==
[2021-02-01 20:46] VITALS: PULSE 64
[2021-02-01] MEDS ORDERED: diphenhydrAMINE 50 MG/ML SDV IVPUSH ONE (21:18)
[2021-02-01] MEDS ORDERED: Sodium Chloride 0.9% 10 ML Syringe FLUSH PRN (21:18)
[2021-02-01] MEDS ORDERED: Sodium Chloride 0.9% 1,000 ML IV ONE (21:18)
[2021-02-01] MEDS ORDERED: Metoclopramide 10 MG/2 ML SDV IVPUSH ONE (21:18)
[2021-02-01] MEDS ORDERED: Ketorolac 30 MG/ML SDV IVPUSH ONE (21:19)
--- NOTE | 2021-02-01 21:26 | EDM.PDOC ---
ED HPI GENERAL MEDICAL PROBLEM - General Chief Complaint: Gastrointestinal Problem Stated Complaint: VOMITING/DIABETIC/3RD BOOSTER/CAD Time Seen by Provider: 02/01/21 21:08 Source of Information: Reports: Patient, Family History Limitations: Reports: No Limitations - History of Present Illness INITIAL COMMENTS - FREE TEXT/NARRATIVE: 60-year-old male who presents the emergency department accompanied by his with complaints of nausea and vomiting. Patient states that at approximately 5 PM this evening he began to develop a migraine and so took indomethacin as well as his evening meds on an empty stomach. States that shortly thereafter he began vomiting and states he has vomited approximately 9 times this evening. He states he did take a Zofran prior to coming to the emergency department and the vomiting has resolved however he states he is still feeling nauseated. He denies any recent fever, chills, diarrhea or abdominal pain. He states he does have a headache pain similar to his migraines. He states he did have some photophobia while at home however that has resolved. He elected to come to the emergency department as he states he is immunocompromised as he has a history of a Yancy's granulomatosis and feels that he gets dehydrated quite easily. Patient did receive his Covid booster yesterday. Patient's primary care provider is at [facility]. - Related Data Allergies Allergy/AdvReac Type Severity Reaction Status Date / Time No Known Allergies Allergy Verified 02/01/21 20:38 Home Meds: Home Meds Aspirin [Harrod Aspirin] 81 mg PO DAILY 05/11/14 [History] Fluticasone Propionate [Flovent] 4 puff IH BID 05/11/14 [History] Pantoprazole [ProTONIX Granules] 40 mg PO DAILY 05/11/14 [History] Sulfamethoxazole/Trimethoprim [Bactrim Ds Tablet] 1 tab PO BID 06/08/14 [History] FLUoxetine [PROzac] 40 mg PO DAILY 05/01/15 [History] Losartan [Cozaar] 25 mg PO DAILY 07/06/15 [History] Metoprolol Succinate [Toprol XL] 25 mg PO DAILY 07/06/15 [History] Nitroglycerin [Nitrostat] 0.4 mg PO Q5M PRN 07/08/16 [History] Rosuvastatin Calcium [Crestor] 40 mg PO DAILY 07/08/16 [History] Albuterol Sulfate 2.5 mg NEB QID PRN 11/09/16 [History] metFORMIN [Glucophage XR] 750 mg PO BEDTIME 01/08/17 [History] riTUXimab [Rituxan] 1,000 mg IV ASDIRECTED 01/08/17 [History] Acetaminophen [Tylenol Extra Strength] 650 mg PO Q8H PRN 04/08/17 [History] Fluticasone Propionate 2 spray JARRED DAILY 04/11/18 [History] Ticagrelor [Brilinta] 90 mg PO BID 11/07/18 [History] Indomethacin 50 mg PO ASDIRECTED PRN 04/23/19 [History] LORazepam [Ativan] 0.5 mg PO DAILY PRN 04/23/19 [History] Ondansetron [Zofran] 4 mg BUCCAL Q6H PRN #10 tab 09/23/19 [Rx] Past Medical History HEENT History: Reports: Hard of Hearing, Impaired Vision Other HEENT History: Wears glasses for reading. Cardiovascular History: Reports: CAD, High Cholesterol, Hypertension, [place] Respiratory History: Reports: Other (See Below) Other Respiratory History: GPA; bronchoscopy; scarring of trachea. She has Yancy's granulomatosis diagnosed in 2004. Initially treated with cyclophosphamide and is being worked up through the [facility]. He is currently been on Rituxan for the last 8 years and done very well. 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 He was started on experimental therapy with either Rituxan or toxin and he was looking up to receive Rituxan which she has been on ever since with good control of his disease process. Oncologic (Cancer) History: Reports: None Dermatologic History: Reports: None - Infectious Disease History Infectious Disease History: Reports: Chicken Pox, Influenza, Mumps - Past Surgical History HEENT Surgical History: Reports: Oral Surgery, Other (See Below) Other HEENT Surgeries/Procedures: subglottic stenosis laser sx removal at [facility] Cardiovascular Surgical History: Reports: Coronary Artery Stent Other Cardiovascular Surgeries/Procedures: 2 stents Respiratory Surgical History: Reports: Lung Biopsies, Other (See Below) Other Respiratory Surgeries/Procedures: bronchoscopy GI Surgical History: Reports: Colonoscopy Musculoskeletal Surgical History: Reports: Other (See Below) Other Musculoskeletal Surgeries/Procedures:: ACL replaced Social & Family History - Family History Family Medical History: No Pertinent Family History - Tobacco Use Tobacco Use Status *Q: Never Tobacco User - Caffeine Use Caffeine Use: Reports: Soda - Living Situation & Occupation Living situation: Reports: , with Spouse 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 ED EXAM, GI/ABD - Physical Exam Exam: See Below Exam Limited By: No Limitations General Appearance: Alert, WD/WN, No Apparent Distress Ears: Normal External Exam, Hearing Grossly Normal Nose: Normal Inspection Throat/Mouth: Normal Inspection, Normal Lips, Normal Voice, No Airway Compromise Head: Atraumatic, Normocephalic Neck: Normal Inspection, Supple Respiratory/Chest: No Respiratory Distress, Lungs Clear, Normal Breath Sounds, No Accessory Muscle Use, Chest Non-Tender Cardiovascular: Normal Peripheral Pulses, Regular Rate, Rhythm, No Edema, No Murmur GI/Abdominal Exam: Normal Bowel Sounds, Soft, Non-Tender, No Distention (Male) Exam: Deferred Rectal (Males) Exam: Deferred Back Exam: Normal Inspection, Full Range of Motion Extremities: Normal Inspection, Normal Range of Motion, Non-Tender, No Pedal Edema, Normal Capillary Refill Neurological: Alert, Oriented, Normal Cognition Psychiatric: Normal Affect, Normal Mood Skin Exam: Warm, Dry, Intact, Normal Color, No Rash Lymphatic: No Adenopathy Course - Vital Signs Text/Narrative:: As stated above, patient presents with nausea, vomiting and migraine headache. Took indomethacin around 5 PM this evening on an empty stomach which I suspect likely cause the patient to have nausea and vomiting. Physical exam is essentially unremarkable. Patient is hemodynamically stable and vital signs are unremarkable. He is afebrile and normotensive. We will give the patient a liter of normal saline as he is likely dehydrated also will help treat the migraine headache discomfort as well as Toradol, Reglan, and Benadryl. We will also obtain lab studies to include a CBC, CMP and magnesium level. Last Recorded V/S: Last Vital Signs Temp 97.4 F 02/01/21 20:43 Pulse 64 02/01/21 20:43 Resp 18 02/01/21 20:43 BP Pulse Ox 100 02/01/21 20:43 - Orders/Labs/Meds Orders: Active Orders 24 hr Category Date Time Status Sodium Chloride 0.9% [Saline Flush] Med 02/01/21 21:18 Active 10 ml FLUSH ASDIRECTED PRN Saline Lock Insert [OM.PC] Stat Oth 02/01/21 21:18 Ordered Medication Orders Sodium Chloride (Sodium Chloride 0.9% 10 Ml Syringe) 10 ml FLUSH ASDIRECTED PRN PRN Reason: Keep Vein Open Last Admin: 02/01/21 21:47 Dose: 10 ml Documented by: JOSE ENRIQUE Labs: Laboratory Tests 02/01/21 02/01/21 Range/Units 21:50 21:50 WBC 5.75 (4.23-9.07) K/mm3 RBC 4.27 L (4.63-6.08) M/mm3 Hgb 12.3 L (13.7-17.5) gm/dl Hct 37.5 L (40.1-51.0) % MCV 87.8 (79.0-92.2) fl MCH 28.8 (25.7-32.2) pg MCHC 32.8 (32.2-35.5) g/dl RDW Std Deviation 42.0 (35.1-43.9) fL Plt Count 188 (163-337) K/mm3 MPV 9.7 (9.4-12.3) fl Neut % (Auto) 77.8 H (34.0-67.9) % Lymph % (Auto) 7.7 L (21.8-53.1) % [place] % (Auto) 12.9 H (5.3-12.2) % Eos % (Auto) 1.2 (0.8-7.0) Baso % (Auto) 0.2 (0.1-1.2) % Neut # (Auto) 4.48 (1.78-5.38) K/mm3 Lymph # (Auto) 0.44 L (1.32-3.57) K/mm3 [place] # (Auto) 0.74 (0.30-0.82) K/mm3 Eos # (Auto) 0.07 (0.04-0.54) K/mm3 Baso # (Auto) 0.01 (0.01-0.08) K/mm3 Sodium 137 (136-145) mEq/L Potassium 3.6 (3.5-5.1) mEq/L Chloride 102 (98-107) mEq/L Carbon Dioxide 26 (21-32) mEq/L Anion Gap 12.6 (5-15) BUN 21 H (7-18) mg/dL Creatinine 1.5 H (0.7-1.3) mg/dL Est Cr Clr Drug Dosing 54.07 mL/min Estimated GFR (MDRD) 48 (>60) mL/min BUN/Creatinine Ratio 14.0 (14-18) Glucose 140 H (70-99) mg/dL Calcium 8.7 (8.5-10.1) mg/dL Magnesium 2.2 (1.8-2.4) mg/dL Total Bilirubin 0.4 (0.2-1.0) mg/dL AST 17 (15-37) U/L ALT 22 (16-63) U/L Alkaline Phosphatase 78 (46-116) U/L Total Protein 5.8 L (6.4-8.2) g/dl Albumin 3.5 (3.4-5.0) g/dl Globulin 2.3 gm/dL Albumin/Globulin Ratio 1.5 (1-2) Meds: Medications Generic Name Dose Route Start Last Admin Trade Name Terranceq PRN Reason Stop Dose Admin Sodium Chloride 10 ml 02/01/21 21:18 02/01/21 21:47 Sodium Chloride 0.9% 10 Ml Syringe FLUSH 10 ml ASDIRECTED PRN Administration Keep Vein Open Discontinued Medications Generic Name Dose Route Start Last Admin Trade Name Freq PRN Reason Stop Dose Admin Diphenhydramine HCl 50 mg 02/01/21 21:18 02/01/21 21:35 Diphenhydramine 50 Mg/Ml Sdv IVPUSH 02/01/21 21:19 50 mg ONETIME ONE Administration Sodium Chloride 1,000 mls @ 999 mls/hr 02/01/21 21:18 02/01/21 21:35 Normal Saline IV 02/01/21 22:18 999 mls/hr ONETIME ONE Administration Ketorolac Tromethamine 30 mg 02/01/21 21:19 02/01/21 21:33 Ketorolac 30 Mg/Ml Sdv IVPUSH 02/01/21 21:20 30 mg ONETIME ONE Administration Metoclopramide HCl 10 mg 02/01/21 21:18 02/01/21 21:35 Metoclopramide 10 Mg/2 Ml Sdv IVPUSH 02/01/21 21:19 10 mg ONETIME ONE Administration - Re-Assessments/Exams Free Text/Narrative Re-Assessment/Exam: 02/01/21 22:36 Hematology is essentially unremarkable, chemistry reveals a sodium of 137, potassium 3.6, anion gap 12.6, BUN 21, creatinine 1.5, glucose 140, magnesium 2.2 Patient states he is feeling significantly better. Nausea and vomiting has completely resolved and he states his headache has resolved as well. He will be discharged home. Departure - Departure Time of Disposition: 22:36 Disposition: Home, Self-Care 01 Condition: Good Clinical Impression: Nausea & vomiting Qualifiers: Vomiting type: unspecified Vomiting Intractability: non-intractable Qualified Code(s): R11.2 - Nausea with vomiting, unspecified Migraine headache without aura Qualifiers: Status migrainosus presence: without status migrainosus Intractability: intractable Qualified Code(s): G43.019 - Migraine without aura, intractable, without status migrainosus - Discharge Information Referrals: Hong Becerril MD [Primary Care Provider] - Forms: ED Department Discharge Additional Instructions: You were seen in the emergency department this evening with nausea and vomiting and what you think was a migraine headache. As discussed, I suspect the cause of the nausea and vomiting was due to taking indomethacin on an empty stomach as this can be hard on your stomach. Be sure to always take this medication with food. Lab studies were completed which were essentially unremarkable. He did not appear to be dehydrated. No signs of infection in your blood work. You did receive a liter of IV fluids while in the emergency department as well as medication to abort your migraine headache and treat your nausea. This seems to have worked. Go home and get plenty of rest and drink plenty of fluids. Sepsis Event Note (ED) - Evaluation Sepsis Screening Result: No Definite Risk - Focused Exam Vital Signs: Vital Signs Temp Pulse Resp Pulse Ox 02/01/21 20:43 97.4 F 64 18 100 - My Orders Last 24 Hours: My Active Orders 02/01/21 21:18 Sodium Chloride 0.9% [Saline Flush] 10 ml FLUSH ASDIRECTED PRN Saline Lock Insert [OM.PC] Stat - Assessment/Plan Last 24 Hours: My Active Orders 02/01/21 21:18 Sodium Chloride 0.9% [Saline Flush] 10 ml FLUSH ASDIRECTED PRN Saline Lock Insert [OM.PC] Stat
== END 2021-02-01 22:52 | disposition home or self-care (01) ==
LOC: JD.ED 20:29
DX: G43.019 Migraine without aura, intractable, without status migrainosus (principal); I25.10 Atherosclerotic heart disease of native coronary artery without angina pectoris; E78.00 Pure hypercholesterolemia, unspecified; I10 Essential (primary) hypertension; I25.2 Old myocardial infarction; K21.9 Gastro-esophageal reflux disease without esophagitis; E11.9 Type 2 diabetes mellitus without complications; E66.9 Obesity, unspecified; Z68.31 Body mass index [BMI] 31.0-31.9, adult; Z79.82 Long term (current) use of aspirin; Z79.84 Long term (current) use of oral hypoglycemic drugs; Z79.899 Other long term (current) drug therapy
CPT/HCPCS: 36415; 80053; 83735; 85025; 96374; 96375; 99284-25; J1200; J1885; J2765; J7030

== ENCOUNTER 2021-11-12 17:14 | Emergency (ER) | payer OTHER ==
[2021-11-12] MEDS ORDERED: diphenhydrAMINE 50 MG/ML SDV IVPUSH PRN (21:12)
[2021-11-12] MEDS ORDERED: Famotidine 20 MG/2 ML SDV IVPUSH PRN (21:12)
[2021-11-12] MEDS ORDERED: EPINEPHrine 1 MG/ML SDV IM PRN (21:12)
[2021-11-12] MEDS ORDERED: methylPREDNISolone Sodium Succinate 125 MG/2 ML SDV IVPUSH PRN (21:12)
[2021-11-12] MEDS ORDERED: Sodium Chloride 0.9% 10 ML Syringe FLUSH SCH (21:15)
[2021-11-12 23:01] VITALS: BP 130/86; PULSE 76
== END 2021-11-12 22:59 | disposition home or self-care (01) ==
LOC: JD.ED 17:14
DX: U07.1 COVID-19 (principal); E11.9 Type 2 diabetes mellitus without complications; I25.10 Atherosclerotic heart disease of native coronary artery without angina pectoris; E78.00 Pure hypercholesterolemia, unspecified; I10 Essential (primary) hypertension; I25.2 Old myocardial infarction; K21.9 Gastro-esophageal reflux disease without esophagitis; E66.9 Obesity, unspecified; Z68.33 Body mass index [BMI] 33.0-33.9, adult; Z86.73 Personal history of transient ischemic attack (TIA), and cerebral infarction without residual deficits; Z86.16 Personal history of COVID-19; Z79.82 Long term (current) use of aspirin; Z79.02 Long term (current) use of antithrombotics/antiplatelets; Z79.899 Other long term (current) drug therapy
CPT/HCPCS: 36415; 80048; 99283; M0222; Q0222; 99282

== ENCOUNTER 2022-02-11 20:18 | Emergency (ER) | payer OTHER ==
[2022-02-11 20:42] VITALS: PULSE 57
[2022-02-11] MEDS ORDERED: Ondansetron 4 MG Tab.DIS PO ONE (20:54)
[2022-02-11] MEDS ORDERED: Sodium Chloride 0.9% 10 ML Syringe FLUSH PRN (20:54)
[2022-02-11] MEDS ORDERED: Aspirin 81 MG Tab.Chew PO ONE (20:54)
[2022-02-11 23:26] VITALS: BP 131/61
== END 2022-02-11 23:15 | disposition home or self-care (01) ==
LOC: JD.ED 20:18
DX: R07.89 Other chest pain (principal); I25.10 Atherosclerotic heart disease of native coronary artery without angina pectoris; E78.00 Pure hypercholesterolemia, unspecified; I10 Essential (primary) hypertension; I25.2 Old myocardial infarction; K21.9 Gastro-esophageal reflux disease without esophagitis; E11.9 Type 2 diabetes mellitus without complications; R00.1 Bradycardia, unspecified; E66.9 Obesity, unspecified; Z68.30 Body mass index [BMI] 30.0-30.9, adult; Z79.82 Long term (current) use of aspirin; Z79.899 Other long term (current) drug therapy; Z79.84 Long term (current) use of oral hypoglycemic drugs
CPT/HCPCS: 36415; 71045; 80053; 84484; 85025; 93005; 99284; A9270

== ENCOUNTER 2022-04-20 03:25 | Emergency (ER) | payer OTHER ==
[2022-04-20] MEDS ORDERED: Ondansetron 4 MG/2 ML SDV IVPUSH ONE (04:06)
[2022-04-20 05:03] LABS: CORONAVIRUS COVID-19 NAA POSITIVE (NEGATIVE)
[2022-04-20] MEDS ORDERED: methylPREDNISolone Sodium Succinate 125 MG/2 ML SDV IVPUSH ONE (09:47)
[2022-04-20] MEDS ORDERED: REMDESIVIR 200 MG in Sodium Chloride 0.9% 250 ML IV ONE (11:01)
[2022-04-20] MEDS ORDERED: REMDESIVIR 100 MG in Sodium Chloride 0.9% 250 ML IV SCH (12:00)
[2022-04-20 12:42] VITALS: BP 130/65; PULSE 74
[2022-04-22] MEDS ORDERED: REMDESIVIR 100 MG in Sodium Chloride 0.9% 250 ML IV SCH (11:30)
== END 2022-04-20 12:42 | disposition home or self-care (01) ==
LOC: JD.ED 03:25
DX: U07.1 COVID-19 (principal); D70.9 Neutropenia, unspecified; R50.81 Fever presenting with conditions classified elsewhere; I25.10 Atherosclerotic heart disease of native coronary artery without angina pectoris; E78.00 Pure hypercholesterolemia, unspecified; I10 Essential (primary) hypertension; I25.2 Old myocardial infarction; K21.9 Gastro-esophageal reflux disease without esophagitis; E11.9 Type 2 diabetes mellitus without complications; E66.9 Obesity, unspecified; Z86.16 Personal history of COVID-19; Z79.82 Long term (current) use of aspirin; Z79.899 Other long term (current) drug therapy; Z79.84 Long term (current) use of oral hypoglycemic drugs; Z68.31 Body mass index [BMI] 31.0-31.9, adult
CPT/HCPCS: 0241U; 36415; 71046; 80053; 83605; 83735; 84484; 85007; 85027; 85046; 86140; 87040; 93005; 96365; 96375; 99284; J0248; J2405; J2930; J7050; 93010

== ENCOUNTER 2023-06-10 13:14 | Emergency (ER) | payer OTHER ==
[2023-06-10] MEDS ORDERED: Sodium Chloride 0.9% 10 ML Syringe FLUSH PRN (13:23)
[2023-06-10 13:39] LABS: BASOPHILS PERCENT AUTO 0.4 % (0.0-1.0); EOSINOPHILS ABSOLUTE AUTO 0.2 K/mm3 (0.0-0.4); EOSINOPHILS PERCENT AUTO 2.7 % (0.0-6.0); HEMATOCRIT 43.4 % (42.0-52.0); HEMOGLOBIN 13.8 gm/dl (14.0-18.0); IMMATURE GRAN ABSOLUTE AUTO 0.03 K/mm3 (0.00-0.05); IMMATURE GRAN PERCENT AUTO 0.4 % (0.0-0.4); LYMPHOCYTES ABSOLUTE AUTO 0.8 K/mm3 (1.0-4.8); LYMPHOCYTES PERCENT AUTO 11.1 % (24.0-44.0); MEAN CORPUSCULAR HEMOGLOBIN 28.2 pg (28.0-32.0); MEAN CORPUSCULAR HGB CONC 31.8 g/dl (32.0-36.0); MEAN CORPUSCULAR VOLUME 88.6 fl (83.0-99.0); MEAN PLATELET VOLUME 9.3 fl (9.4-12.4); MONOCYTES ABSOLUTE AUTO 0.6 K/mm3 (0.0-0.8); MONOCYTES PERCENT AUTO 8.1 % (0.0-8.0); NEUTROPHILS ABSOLUTE AUTO 5.7 K/mm3 (1.8-7.7); NEUTROPHILS PERCENT AUTO 77.3 % (41.0-71.0); PLATELET COUNT,PLT 195 K/mm3 (150-400); WHITE BLOOD CELL COUNT,WBC 7.37 K/mm3 (3.9-11.3)
[2023-06-10 14:05] LABS: A/G RATIO 1.3 (1-2); ANION GAP 14.4 (5-15); BILIRUBIN TOTAL 0.4 mg/dL (0.2-1.0); BUN/CREATININE RATIO 13.1 (14-18); CALCIUM 9.5 mg/dL (8.5-10.1); CREATININE 1.3 mg/dL (0.7-1.3); EST CRCL DRUG DOSING (CG) 81.35 mL/min; POTASSIUM,K 4.4 mEq/L (3.5-5.1)
[2023-06-10 14:19] LABS: INR 1.07; PROTHROMBIN TIME 11.4 SECONDS (9.7-12.0)
[2023-06-10 14:21] LABS: PTT,PARTIAL THROMBOPLSTIN TIME 25.8 SECONDS (21.7-31.4)
[2023-06-10 16:56] VITALS: BP 117/69; PULSE 69
== END 2023-06-10 16:00 | disposition home or self-care (01) ==
LOC: JD.ED 13:14
DX: S06.0X0A Concussion without loss of consciousness, initial encounter (principal); S00.83XA Contusion of other part of head, initial encounter; I25.10 Atherosclerotic heart disease of native coronary artery without angina pectoris; E78.00 Pure hypercholesterolemia, unspecified; I10 Essential (primary) hypertension; I25.2 Old myocardial infarction; K21.9 Gastro-esophageal reflux disease without esophagitis; E11.9 Type 2 diabetes mellitus without complications; E66.9 Obesity, unspecified; Z79.82 Long term (current) use of aspirin; Z86.19 Personal history of other infectious and parasitic diseases; Z86.16 Personal history of COVID-19; Z95.5 Presence of coronary angioplasty implant and graft; Z79.84 Long term (current) use of oral hypoglycemic drugs; Z79.899 Other long term (current) drug therapy; W22.8XXA Striking against or struck by other objects, initial encounter
CPT/HCPCS: 36415; 70450; 70450-26; 70486; 70486-26; 80053; 85025; 85610; 85730; 99283; 99284

== ENCOUNTER 2023-10-12 10:02 | Emergency (ER) | payer OTHER ==
[2023-10-12 10:20] VITALS: PULSE 77
[2023-10-12 11:53] VITALS: BP 130/66
== END 2023-10-12 11:52 | disposition home or self-care (01) ==
LOC: JD.ED 10:02
DX: S80.11XA Contusion of right lower leg, initial encounter (principal); I10 Essential (primary) hypertension; I25.2 Old myocardial infarction; I25.10 Atherosclerotic heart disease of native coronary artery without angina pectoris; K21.9 Gastro-esophageal reflux disease without esophagitis; E11.9 Type 2 diabetes mellitus without complications; E66.9 Obesity, unspecified; Z95.5 Presence of coronary angioplasty implant and graft; Z86.16 Personal history of COVID-19; Z79.899 Other long term (current) drug therapy; Z79.84 Long term (current) use of oral hypoglycemic drugs; Z79.82 Long term (current) use of aspirin; Z68.29 Body mass index [BMI] 29.0-29.9, adult; W26.8XXA Contact with other sharp object(s), not elsewhere classified, initial encounter
CPT/HCPCS: 99283

== ENCOUNTER 2024-03-24 13:01 | Emergency (ER) | payer OTHER ==
[2024-03-24 13:13] VITALS: BP 171/78; PULSE 83
[2024-03-24 13:37] LABS: BASOPHILS PERCENT AUTO 0.5 % (0.0-1.0); EOSINOPHILS ABSOLUTE AUTO 0.2 K/mm3 (0.0-0.4); EOSINOPHILS PERCENT AUTO 3.1 % (0.0-6.0); HEMATOCRIT 44.4 % (42.0-52.0); HEMOGLOBIN 14.3 gm/dl (14.0-18.0); IMMATURE GRAN ABSOLUTE AUTO 0.03 K/mm3 (0.00-0.05); IMMATURE GRAN PERCENT AUTO 0.5 % (0.0-0.4); LYMPHOCYTES ABSOLUTE AUTO 1.3 K/mm3 (1.0-4.8); LYMPHOCYTES PERCENT AUTO 20.5 % (24.0-44.0); MEAN CORPUSCULAR HEMOGLOBIN 27.7 pg (28.0-32.0); MEAN CORPUSCULAR HGB CONC 32.2 g/dl (32.0-36.0); MEAN CORPUSCULAR VOLUME 85.9 fl (83.0-99.0); MONOCYTES ABSOLUTE AUTO 0.6 K/mm3 (0.0-0.8); MONOCYTES PERCENT AUTO 8.9 % (0.0-8.0); NEUTROPHILS ABSOLUTE AUTO 4.3 K/mm3 (1.8-7.7); NEUTROPHILS PERCENT AUTO 66.5 % (41.0-71.0); PLATELET COUNT,PLT 274 K/mm3 (150-400); RED BLOOD CELL COUNT 5.17 M/mm3 (4.52-5.90)
[2024-03-24 14:08] LABS: INR 0.95; PROTHROMBIN TIME 10.1 SECONDS (9.7-12.0)
[2024-03-24 14:09] LABS: A/G RATIO 1.4 (1-2); ANION GAP 14.7 (5-15); BILIRUBIN TOTAL 0.2 mg/dL (0.2-1.0); CREATININE 1.4 mg/dL (0.7-1.3); EST CRCL DRUG DOSING (CG) 55.76 mL/min; PROTEIN TOTAL,TP 6.8 g/dl (6.4-8.2)
[2024-03-24 14:10] LABS: D-DIMER QUANTITATIVE 0.26 mg/L (0.19-0.50)
[2024-03-24 14:11] LABS: PTT,PARTIAL THROMBOPLSTIN TIME 26.6 SECONDS (21.7-31.4)
[2024-03-24 14:13] LABS: POTASSIUM,K 4.7 mEq/L (3.5-5.1)
[2024-03-24] MEDS: Sodium Chloride 0.9% 10 ML Syringe FLUSH ONE (14:35)
[2024-03-24] MEDS: Iopamidol 612 MG/ML 100 ML Bottle IVPUSH ONE (14:35)
== END 2024-03-24 17:23 | disposition home or self-care (01) ==
LOC: JD.ED 13:01
DX: R07.89 Other chest pain (principal); R04.2 Hemoptysis; I25.2 Old myocardial infarction; I25.10 Atherosclerotic heart disease of native coronary artery without angina pectoris; I10 Essential (primary) hypertension; E78.00 Pure hypercholesterolemia, unspecified; K21.9 Gastro-esophageal reflux disease without esophagitis; E11.9 Type 2 diabetes mellitus without complications; E66.9 Obesity, unspecified; Z68.29 Body mass index [BMI] 29.0-29.9, adult; Z86.73 Personal history of transient ischemic attack (TIA), and cerebral infarction without residual deficits; Z86.16 Personal history of COVID-19; Z95.5 Presence of coronary angioplasty implant and graft; Z79.82 Long term (current) use of aspirin; Z79.51 Long term (current) use of inhaled steroids; Z79.84 Long term (current) use of oral hypoglycemic drugs; Z79.899 Other long term (current) drug therapy
CPT/HCPCS: 36415; 71045; 71260; 80053; 83735; 83880; 84484; 85025; 85379; 85610; 85730; 87428; 93005; 99285; Q9967